=== PATIENT | male | born 1945 | race Caucasian/White ===

== ENCOUNTER 2025-02-17 10:34 | Outpatient (CLI) | payer MEDICARE, BC, SELFPAY ==
--- OUTSIDE RECORDS SUMMARY | 2025-01-08 08:30 | XMS_ITS | Encounter Summary ---
Author Organization [facility] er Address [address] [place] [address] Care Team Providers Care Tech Brazer Tester Name Role Phone Arabella Alamo APRN Primary Care Provider Encounter Details Date Type Department Care Team (Late st Contact Info) Description 01/08/2025 8:30 AM CDT Lab [place] [address] [facility] [address] [place] [address] Type 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) Social History Tobacco Use Types Packs/Day Years Used Date Smoking Tobacco: Every Day Cigarettes 1 64 Smokeless Tobacco: Never Alcohol Use Standard Drinks/Week Comments Not Currently 3 (1 standard drink = 0.6 oz pur e alcohol) B1300 Health Literacy Answer Date Recor ded How often do you need to hav e someone help you when you read instructions, pamphlets, or other written material from your doctor or pharmacy? Never 09/02/2024 [facility] Utilities Answer Date Recorded In the past 12 months has Simt[employer], gas, oil, or water [employer] threatened to shut off services in your home? No 09/02/2024 Humiliation, Afraid, Rape, and Kick questionnair e Answer Date Recorded Within the last year, have y ou been afraid of your partner or ex-partner? No 09/02/2024 Within the last year, have y ou been humiliated or emotionally abused in other ways by your partner or ex-partner? No Within the last year, have y ou been kicked, hit, slapped, or otherwise physically hurt by your partner or ex-partner? No 09/02/2024 Within the last year, have y ou been raped or forced to have any kind of sexual activity by your partner or ex-partner? No 09/02/2024 Social Connection and Isolat ion Panel [NHANES] Answer Date Recorded In a typical week, how many times do you talk on the phone with family, friends, or neighbors? More than three times a week 09/02/2024 How often do you get togethe r with friends or relatives? Twice a week 09/02/2024 How often do you attend chur or tenriism services? More than 4 times per year 09/02/2024 Do you belong to any clubs o r organizations such as islam groups, unions, fraternal or athletic groups, or school groups? Yes 09/02/2024 How often do you attend meet ings of the clubs or organizations you belong to? Never 09/02/2024 Are you , , di vorced, , never , or living with a partner? 09/02/2024 AUDIT-C Answer Date Recorded Q1: How often do you have a drink containing alc ohol? 2-3 times a week 09/02/2024 Q2: How many drinks containi ng alcohol do you have on a typical day when you are drinking? 1 or 2 09/02/2024 Q3: How often do you have si x or more drinks on one occasion? Never 09/02/2024 Overall Financial Resource Strain (CARDIA) Answe r Date Recorded How hard is it for you to pa y for the very basics like food, housing, medical care, and heating? Not hard at all 09/02/2024 PHQ-2 Answer Date Recorded PHQ-9 Total Score 1 09/02/2024 [facility] Occup[facility] ional [facility] - Occupational Stress Questionnaire Answer Date Recorded Do you feel stress - tense, restless, nervous, or anxious, or unable to sleep at night because your mind is troubled all the time - these days? Only a little 09/02/2024 Exercise Vital Sign Answer Date Recorde d On average, how many days pe r week do you engage in moderate to strenuous exercise (like a brisk walk)? 3 days 09/02/2024 On average, how many minutes do you engage in exercise at this level? 20 min 09/02/2024 Hunger Vital Sign Answer Date Recorded Within the past 12 months, y ou worried that your food would run out before you got the money to buy more. Never true Within the past 12 months, t he food you bought just didn't last and you didn't have money to get more. Sometimes true PRAPARE - Transportation Answer Date Re corded In the past 12 months, has l ack of transportation kept you from medical appointments or from getting medications? No 08/20 In the past 12 months, has l ack of transportation kept you from meetings, work, or from getting things needed for daily living? No 09/02/2024 Housing Stability Vital Sign Answer Valentino e Recorded In the last 12 months, was t here a time when you were not able to pay the mortgage or rent on time? No 10/19/2023 Number of Places Lived in the Last Year Not on f ile 10/19/2023 In the last 12 months, was t here a time when you did not have a steady place to sleep or slept in a halfway (including now)? No 10/19/2023 Housing Stability Vital Sign Answer Valentino e Recorded In the last 12 months, was t here a time when you were not able to pay the mortgage or rent on time? No 09/02/2024 Number of Times Moved in the Last Year Not on fi le 09/02/2024 At any time in the past 12 m [facility], were you homeless or living in a halfway (including now)? No 09/02/2024 Interpersonal Safety Questionnaire Answer Date Recorded How often does anyone, phuc echevarria family and friends, physically hurt you? Never 09/02/2024 How often does anyone, phuc echevarria family and friends, insult or talk down to you? Never 09/02/2024 How often does anyone, phuc echevarria family and friends, threaten you with harm? Never 09/02/2024 How often does anyone, phuc echevarria family and friends, threaten you with harm? Never 09/02/2024 Education Answer Date Recorded What is the highest level of school you have completed or the highest degree you have received? 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 documented in this encounter Plan of Treatment Upcoming Encounters Date Type Department Care Team (Late st Contact Info) Description 02/24/2025 8:30 AM CDT Appointment [facility] Ultrasound [address] [place] [id number] 02/24/2025 11:30 AM CDT Office Visit [facility] [address] [place] [id number] Shin Kong MD [address] [place] [id number] documented as of this encounter Procedures Procedure Name Priority Date/Time Associated Diagnosis Comments ESTIMATED GLOMERULAR FILTRATION RATE (EGFR) Routine 01/08/2025 8:39 AM CDT Type 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) HEMOGLOBIN A1C Routine 01/08/2025 8:39 AM CDT Type 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) LIPID PANEL Routine 01/08/2025 8:39 AM CDT Type 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) BASIC METABOLIC PANEL Routine 01/08/2025 8:39 AM CDT Type 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) documented in this encounter Results * (ABNORMAL) Estimated Glomerular Filtration Rate (eGFR) (01/08/2025 8:39 AM CDT) Pathologist [facility] Estimated Glomerular Filtration Rate (eGFR) 17(A) 01/08/2025 1:08 PM [facility] Comment: GFR calculated from serum creatinine value Chronic Kidney Disease less than 60 mL/min/1.73 m2 Kidney Failure less than 15 mL/min/1.73 m2 Note: effective 08/16/2022: 2020 CKD-EPI Equation used 01/08/2025 8:39 AM CDT 01/08/2025 8:39 AM CDT us Arabella Alamo APRN LAB BLOOD ORDERABLES F inal Result [facility] [address] [place] [address] * (ABNORMAL) Basic metabolic panel (01/08/2025 8:39 AM CDT) Sodium 136 135 - 145 mEq/L 01/08/2025 1:08 PM [facility] Potassium 3.8 3.5 - 5.1 mEq/L 01/08/2025 1:08 PM [facility] Chloride 109(H) 98 - 107 mEq/L 01/08/2025 1:08 PM [facility] CO2 17(L) 22 - 31 mmol/L 01/08/2025 1:08 PM [facility] Creatinine 3.51(H) 0.60 - 1.40 mg/dL 01/08/2025 1:08 PM [facility] BUN 65(H) 5 - 25 mg/dL 01/08/2025 1:08 PM [facility] Glucose 184(H) 70 - 100 mg/dL 01/08/2025 1:08 PM [facility] Calcium, Total,S 9.2 8.4 - 10.2 mg/dL 01/08/2025 1:08 PM [facility] Anion Gap 10 4 - 13 01/08/2025 1:08 PM [facility] Comment: The anion gap is calculated with the following formula: AGAP = Na ? (Cl + CO2). Blood (Blood, Venous) 01/08/2025 8:39 AM CDT 01/08/2025 12:35 PM CDT Arabella Alamo APRN LAB BLOOD ORDERABLES F inal Result Performing Organization Address [facility] de Phone Number [facility] [address] [place], [place] [address] * (ABNORMAL) Hemoglobin A1c (01/08/2025 8:39 AM CDT) Hemoglobin A1C 6.6(H) 4.0 - 5.6 % A1C 01/08/2025 1:01 PM CDT [facility] Comment: Reference Range 4.0-5.6% is for non- adults >=18 yrs <5.6% Non-Diabetic 5.7-6.4% Increased risk of Diabetes >=6.5% Indicative of Diabetes <7.0% ADA goal for glycemic control Methodology may not detect all hemoglobin variants which can affect A1c results. Method certified by National Glycohemoglobin Standardization Program. Blood (Blood, Venous) 01/08/2025 8:39 AM CDT 01/08/2025 12:35 PM CDT Arabella Alamo APRN LAB BLOOD ORDERABLES F inal Result Performing Organization Address [facility] de Phone Number [facility] [address] [place], [place] [id number] * (ABNORMAL) Lipid panel (01/08/2025 8:39 AM CDT) Cholesterol 84 0 - 199 mg/dL 01/08/2025 1:08 PM CDT [facility] Comment: Recommended by National Cholesterol Education Program (ATP III) -------- Cholesterol Ranges -------- <200 Desirable 200-239 Borderline high >=240 High Triglycerides 198(H) 0 - 149 mg/dL 01/08/2025 1:08 PM CDT [facility] Comment: -------- TRIG Ranges -------- <150 Normal 150-199 Borderline high 200-499 High >=500 Very high HDL 25(L) 40 - 250 mg/dL 01/08/2025 1:08 PM CDT [facility] Comment: -------- HDL Ranges -------- <40 Low 40-59 Normal >=60 Optimal LDL Calculated 19 0 - 99 mg/dL 01/08/2025 1:08 PM CDT [facility] Comment: -------- LDL Ranges -------- <100 Optimal 100-129 Near optimal/above optimal 130-159 Borderline high 160-189 High >=190 Very high Fasting? Yes 01/08/2025 8:40 AM CDT [facility] Blood (Blood, Venous) 01/08/2025 8:39 AM CDT 01/08/2025 12:35 PM CDT Arabella Alamo APRN LAB BLOOD ORDERABLES F inal Result [facility] [address] [place] [address] documented in this encounter Visit Diagnoses Diagnosis Type 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) documented in this encounter Care Teams Tech Brazer Tester Relationship Specialty Start Date End Date Arabella Alamo APRN [address] [place] [id number] PCP - General Family Medicine 09/07/23 documented as of this encounter
--- OUTSIDE RECORDS SUMMARY | 2025-01-08 15:05 | XMS_ITS | Encounter Summary ---
Author Organization [facility] Address [address] [place] [address] Care Team Providers Care Bioinformatics Computer Scientist Name Role Phone Elsewhere, Pcp Primary Care Provider Unavailabl e Reason for Visit * Reason Comments Abnormal Lab Sent here by [facility] after routine lab test showed GFR of 17 Encounter Details Date Type Department Care Team (Late st Contact Info) Description 01/08/2025 3:05 PM CDT - 01/08/2025 6:21 PM CDT Emergency [facility] [address] [place] [address] [place] [phone] Katie Ghotra APRN, C.N.P., D.N.P. 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 - 01/08/2025 6:17 PM CDT Make sure you keep your upcoming appointment with your primary care provider. Return to the emergency department with any worsening symptoms, or any other acute concerns. * Attachments The following attachments cannot be sent through Care Everywhere. * Acute Kidney Injury Adult (Ugandan) documented in this encounter Medications at Time of Discharge aspirin 81 mg chewable tablet Chew 81 mg. atorvastatin (LIPITOR) 40 mg tablet Take 40 mg by mouth. 02/12/2020 chlorthalidone (HYGROTON) 25 mg tablet Take 1 tablet by mouth daily. 10/19/2023 clotrimazole-bet amethasone (LOTRISONE) 1-0.05 % cream 01/14/2021 cyclobenzaprine (FLEXERIL) 10 mg tablet May take 1/2 to one pill up to three times per day IF needed for muscle pain/stiffness 02/25/2021 glipiZIDE (GLUCOTROL) 10 mg tablet TAKE 1 TABLET TWICE DAILY FOR DIABETES 10/07/2020 ibuprofen (ADVIL,MOTRIN) 200 mg tablet Take 2 tablets by mouth as needed. 04/24/2012 ketorolac (ACULAR) 0.5 % ophthalmic solution Administer 1 drop into the right eye 4 (four) times a day. Start 01/05/2024 and use as directed 5 mL 1 11/19/2023 losartan (COZAAR) 50 mg tablet Take 50 mg by mouth. 02/12/2020 metFORMIN (GLUCOPHAGE) 1,000 mg tablet 03/09/2021 metoprolol succinate (TOPROL-XL) 50 mg 24 hr tablet Take ONE a day for blood pressure. Do not crush or chew. 02/12/2020 prednisoLONE acetate (PRED FORTE) 1 % ophthalmic suspension Administer 1 drop into the right eye 4 (four) times a day. Start 01/05/2024 and use as directed 10 mL 1 11/19/2023 rosuvastatin (CRESTOR) 40 mg tablet Take 1 tablet by mouth daily. 04/10/2023 tobramycin (TOBREX) 0.3 % ophthalmic solution Administer 1 drop into the right eye 4 (four) times a day. Begin 01/05/2024. Follow schedule provided. 5 mL 1 12/31/2023 documented as of this encounter ED Notes * Katie Ghotra APRN, C.N.P., D.N.P. - 01/08/2025 4:16 PM CDT SUBJECTIVE CHIEF COMPLAINT/REASON FOR VISIT Abnormal Lab (Sent here by [facility] after routine lab test showed GFR of 17) HISTORY OF PRESENT ILLNESS This is an 79-year-old male, who was sent to the emergency department from an outside primary care clinic for evaluation of an abnormal kidney function panel. Comorbidities include COPD, hypertension, and type 2 DM amongst others. As per report, patient had a clinic appointment for a routine laboratory checkup. Patient reports that he was at home about 2 more his lawn, when he received a call from PCP to report to the emergency department due to an abnormal laboratory results. Patient reports that he has overall felt well. He has not had any trouble urinating, he has not hadany fever, chills, dysuria, or hematuria. He denies any changes to his bowel habits. He has not hadany back or flank pain. Patient reports that he drinks about 6 cups of water per day. REVIEW OF SYSTEMS All other systems reviewed and are negative. OBJECTIVE Initial Vitals Temperature 01/08/25 1513 36.8 ??C Pulse Rate 01/08/25 1515 61 Heart Rate -- Resp -- Blood Pressure 01/08/25 1500 113/62 SpO2 01/08/25 1515 98 % Pain Score 01/08/25 1513 0 - No pain PHYSICAL EXAMINATION Constitutional: Nursing note and vitals reviewed. No distress. HENT: Head: Normocephalic. Mouth/Throat: Oropharynx is clear and moist. Mucous membranes are moist. Eyes: Pupils are equal, round, and reactive to light. Neck: Neck supple. No neck adenopathy. Cardiovascular: Normal rate, regular rhythm, S1 normal and S2 normal. Pulses are palpable. Capillary refill: takes less than 3 secondsEdema: no edema noted Pulmonary/Chest: Effort normal and breath sounds normal. No respiratory distress. Abdominal: Soft. Bowel sounds are normal. exhibits no distension. There is no abdominal tenderness. Musculoskeletal: General: Normal range of motion. Cervical back: Normal range of motion and neck supple. Neurological: Alert and oriented to person, place, and time. He is not disoriented. Coordination normal. Skin: Skin is warm. No cyanosis. No pallor. Psychiatric: He has a normal mood and affect. ASSESSMENT/PLAN Some considerations are hypovolemia, electrolyte derangement, SHANI, and acute cystitis amongst many others. Patient is awake, alert, and oriented. He is able to speak in full sentences. He is afebrile and nontoxic-appearing. He is in no acute respiratory distress. His oxygen saturation is 98% on room air. On clinical examination his abdominal exam is benign, he presents with no evidence of acute abdomen.Patient will be administered aggressive IV fluids. CBC shows no evidence of acute anemia, or leukocytosis. BMP shows significant increasing creatinine, potential SHANI. You a shows moderate amount of blood, no leukocytes, or white blood cells. Patient will obtain a CT scan of abdomen and pelvis to evaluate for acute kidney injury and/or nephrolithiasis. CT scan shows no evidence of hydronephrosis, pyelonephritis, or obstructive source. Patient was informed of laboratory and imaging results. Patient had improvement in creatinine after fluid resuscitation. A conversation was had between myself, patient, and accept kin, Miguelina over the telephone. Patient was offered hospital admission for SHANI. I did explain to patient and family that as per patient record, last blood draw was on April of 2024. Unfortunately, we have no local bed capability. Risk versus benefit of discharging home wasdiscussed in detail. Patient says to me that he has has an upcoming appointment with his PCP on Sunday. Patient thinks it would be more beneficial to be discharged home, as he feels at baseline. Patient is his own medical decision maker, and is aware of risks potential of discharging home. Patientand neck. Can not would prefer to have patient discharged home with close follow-up. He is agreeable to returning to the emergency department if he has any worsening symptoms, or any other acute concerns. Patient is in agreement with the plan of care. Final Diagnoses: as of 01/08/251849 Failure Renal Acute (Acute Kidney Injury) Katie Ghotra APRN, C.N.P., D.N.P. 01/08/251853 documented in this encounter Plan of Treatment Not on file documented as of this encounter Procedures Procedure Name Priority Date/Time Associated Diagnosis Comments BASIC METABOLIC PANEL, S/P Timed 01/08/2025 5:[address] ABDOMEN PELVIS WITHOUT IV CONTRAST RAD - Semiurgent (Fast; most ED patients; some inpatients) 01/08/2025 4:09 PM CDT URINALYSIS WITH MICROSCOPIC IF INDICATED, U STAT 01/08/2025 3:46 PM CDT HC URINALYSIS AUTO W MICRO STAT 01/08/2025 3:46 PM CDT BACTERIAL CULTURE, AEROBIC + SUSC, URINE STAT 01/08/2025 3:41 PM CDT CBC WITH DIFFERENTIAL, B STAT 01/08/2025 3:36 PM CDT BASIC METABOLIC PANEL, S/P STAT 01/08/2025 3:36 PM CDT documented in this encounter Results * (ABNORMAL) Basic Metabolic Panel (01/08/2025 5:32 PM CDT) Potassium, P 4.2 3.6 - 5.2 mmol/L 01/08/2025 5:51 PM CDT CNFL Sodium, P 137 135 - 145 mmol/L 01/08/2025 5:51 PM CDT CNFL Chloride, P 108(H) 98 - 107 mmol/L 01/08/2025 5:51 PM CDT CNFL Bicarbonate, P 16(L) 22 - 29 mmol/L 01/08/2025 5:51 PM CDT CNFL Anion Gap, P 13 7 - 15 01/08/2025 5:51 PM CDT CNFL BUN (Blood Urea Nitrogen), P 58(H) 8 - 24 mg/dL 01/08/2025 5:51 PM CDT CNFL Creatinine 2.95(H) 0.74 - 1.35 mg/dL 01/08/2025 5:51 PM CDT CNFL Estimated GFR (eGFR) 21(L) >=60 mL/min/BSA 01/08/2025 5:51 PM CDT CNFL Comment: Estimated GFR calculated using the 2020 CKD_EPI creatinine equation. Calcium, Total, P 7.9(L) 8.8 - 10.2 mg/dL 01/08/2025 5:51 PM CDT CNFL Glucose, P 91 70 - 140 mg/dL 01/08/2025 5:51 PM CDT CNFL Blood (Blood, Venous) 01/08/2025 5:32 PM CDT 01/08/2025 5:34 PM CDT us Katie Ghotra APRN C.N.P., D.N.P. LAB BLOOD ADD-ON Final Result Performing Organization Address City/State/[facility] Co de Phone Number [facility] [address] [place] [address], [facility] CNFL [facility] in [address] [address] * CT Abdomen Pelvis without IV Contrast (01/08/2025 4:09 PM CDT) Anatomical Region Laterality Modality Abdomen, Pelvis, Abdominal R ST LOS, Abdominal ARZ LOS, Abdominal FLA LOS N/A Computed Tomography 01/08/2025 4:09 PM CDT Impressions 01/08/2025 4:16 PM CDT 1. Multiple nonobstructing stones in the right renal collecting system, the largest measures 9 mm. No hydronephrosis. 2. Marked prostamegaly. Narrative 01/08/2025 4:16 PM CDT EXAM: CT ABDOMEN PELVIS WITHOUT IV CONTRAST COMPARISON: None FINDINGS: 9 mm stone in the right renal collecting system (series 5, image 58). Additional tiny nonobstructing stones in the lower pole of the right kidney. No other urinary calculi identified. No hydronephrosis. Bilateral renal cysts. Marked prostamegaly. A few scattered tiny hypoattenuating lesions in the liver are too small to characterize but likely represent cysts and/or hemangiomas. The solid organs are otherwise unremarkable on this noncontrast examination. Normal caliber small bowel and colon. Advanced scattered calcified atherosclerotic disease. Small fat-containing left inguinal hernia. Slight thoracolumbar curvature with advanced degenerative changes of the spine. Degenerative changes both SI joints and hips. The visualized lower lungs are clear. Procedure Note Benedicto Clifton M.D. - 01/08/2025 EXAM: CT ABDOMEN PELVIS WITHOUT IV CONTRAST COMPARISON: None FINDINGS: 9 mm stone in the right renal collecting system (series 5, image 58).Additional tiny nonobstructing stones in the lower pole of the rightkidney. No other urinary calculi identified. No hydronephrosis. Bilateralrenal cysts. Marked prostamegaly. A few scattered tiny hypoattenuating lesions in the liver are too small tocharacterize but likely represent cysts and/or hemangiomas. The solidorgans are otherwise unremarkable on this noncontrast examination. Normalcaliber small bowel and colon. Advanced scattered calcified atherosclerotic disease. Small fat-containing leftinguinal hernia. Slight thoracolumbar curvature with advanced degenerativechanges of the spine. Degenerative changes both SI joints and hips. Thevisualized lower lungs are clear. IMPRESSION: 1. Multiple nonobstructing stones in the right renal collecting system,the largest measures 9 mm. No hydronephrosis. 2. Marked prostamegaly. us Katie Ghotra APRN, C.N.P., D.N.P. IMG CT PRO CEDURES Final Result * (ABNORMAL) Microscopic Manual (01/08/2025 3:46 PM CDT) White Blood Cells Occ-3 /hpf 01/08/2025 4:22 PM CDT CNFL Comment: ----REFERENCE VALUE---- Males: 0-3 Females: 0-10 Unknown: 0-10 Red Blood Cells 3-10(A) 0 - 2 /hpf 4:22 PM CDT CNFL Dysmorphic Red Blood Cells <=25 <=25 % 01/08/2025 4:22 PM CDT CNFL Crystals Amorphous( A) None Seen /lpf 01/08/2025 4:22 PM CDT CNFL Squamous Cells Occ-3 /hpf 01/08/2025 4:22 PM CDT CNFL Renal Cells Occ-3(A) None Seen /hpf 01/08/2025 4:22 PM CDT CNFL Bacteria None Seen None Seen 01/08/2025 4:22 PM CDT CNFL Urine 01/08/2025 3:46 PM CDT 01/08/2025 3:46 PM CDT us Katie Ghotra APRN, C.N.P., D.N.P. LAB URINE ORDERABLES Final Result [facility] [address] [place] [address], [facility] CNFL [place] [address] * (ABNORMAL) Urinalysis with Microscopic if Indicated: Urine, Midstream (01/08/2025 3:46 PM CDT) Source Urine, Urine, Midstream 01/08/2025 3:46 PM CDT CNFL Clarity Clear Clear 01/08/2025 3:51 PM CDT CNFL Color Yellow 01/08/2025 3:51 PM CDT CNFL Comment: ----REFERENCE VALUE---- Colorless Yellow Laura Blood Moderate(A) Negative 01/08/2025 3:51 PM CDT CNFL Nitrite Negative Negative 01/08/2025 3:51 PM CDT CNFL Leukocyte Esterase Negative Negative 01/08/2025 3:51 PM CDT CNFL Protein >=300(A) mg/dL 01/08/2025 3:51 PM CDT CNFL Comment: ----REFERENCE VALUE---- Negative Trace Glucose Negative Negative mg/dL 01/08/2025 3:51 PM CDT CNFL Ketones, QI(U) Negative Negative mg/dL 01/08/2025 3:51 PM CDT CNFL Bilirubin Negative Negative 01/08/2025 3:51 PM CDT CNFL pH 5.5 5.0 - 8.0 01/08/2025 3:51 PM CDT CNFL Specific Dixie 1.020 1.001 - 1.035 01/08/2025 3:51 PM CDT CNFL Urobilinogen 0.2 0.2 - 1.0 mg/dL 01/08/2025 3:51 PM CDT CNFL Urine (Urine, Midstream) 01/08/2025 3:46 PM CDT 01/08/2025 3:46 PM CDT Katie Ghotra APRN, C.N.P., D.N.P. LAB URINE ORDERABLES Final Result Performing Organization Address [facility] Co de Phone Number [facility] [address] [place] [address], [facility] [place] [address] * Bacterial Culture, Aerobic + Susceptibility, Urine (01/08/2025 3:41 PM CDT) Urine Culture No growth after 1 day of incubation. 01/09/2025 3:21 PM CDT ECLR Urine (Urine, Midstream) 01/08/2025 3:41 PM CDT 01/08/2025 8:31 PM CDT Comment:Specimen Source Site : Urine Katie Ghotra APRN, C.N.P ., D.N.P. LAB MICROBIOLOGY - GENERAL ORDERABLES Final Result [facility] [address] [place] [address], [place] ECLR [facility] [place] [address] [place] [address] * (ABNORMAL) Basic Metabolic Panel (01/08/2025 3:36 PM CDT) Potassium, P 4.3 3.6 - 5.2 mmol/L 01/08/2025 3:57 PM CDT CNFL Sodium, P 139 135 - 145 mmol/L 01/08/2025 3:57 PM CDT CNFL Chloride, P 105 98 - 107 mmol/L 01/08/2025 3:57 PM CDT CNFL Bicarbonate, P 18(L) 22 - 29 mmol/L 01/08/2025 3:56 PM CDT CNFL Anion Gap, P 16(H) 7 - 15 01/08/2025 3:57 PM CDT CNFL BUN (Blood Urea Nitrogen), P 63(H) 8 - 24 mg/dL 01/08/2025 3:56 PM CDT CNFL Creatinine 3.32(H) 0.74 - 1.35 mg/dL 01/08/2025 3:56 PM CDT CNFL Estimated GFR (eGFR) 18(L) >=60 mL/min/BSA 01/08/2025 3:56 PM CDT CNFL Comment: Estimated GFR calculated using the 2020 CKD_EPI creatinine equation. Calcium, Total, P 9.1 8.8 - 10.2 mg/dL 01/08/2025 3:56 PM CDT CNFL Glucose, P 130 70 - 140 mg/dL 01/08/2025 3:56 PM CDT CNFL Blood (Blood, Venous) 01/08/2025 3:36 PM CDT 01/08/2025 3:38 PM CDT Katie Ghotra APRN, C.N.P., D.N.P. LAB BLOOD ADD-ON Final Result [facility] [address] [address], [facility] [address] [address] * (ABNORMAL) CBC with Differential, Blood (01/08/2025 3:36 PM CDT) Hemoglobin 12.8(L) 13.2 - 16.6 g/dL 01/08/2025 3:41 PM CDT CNFL Hematocrit 37.3(L) 38.3 - 48.6 % 01/08/2025 3:41 PM CDT CNFL Erythrocytes 4.06(L) 4.35 - 5.65 x10(12)/L 01/08/2025 3:41 PM CDT CNFL MCV 91.9 78.2 - 97.9 fL 01/08/2025 3:41 PM CDT CNFL RBC Distrib Width 12.9 11.8 - 14.5 % 01/08/2025 3:41 PM CDT CNFL Platelet Count 196 135 - 317 x10(9)/L 01/08/2025 3:41 PM CDT CNFL Leukocytes 9.1 3.4 - 9.6 x10(9)/L 01/08/2025 3:41 PM CDT CNFL Neutrophils 5.90 1.56 - 6.45 x10(9)/L 01/08/2025 3:41 PM CDT CNFL Lymphocytes 1.91 0.95 - 3.07 x10(9)/L 01/08/2025 3:41 PM CDT CNFL Monocytes 1.05(H) 0.26 - 0.81 x10(9)/L 01/08/2025 3:41 PM CDT CNFL Eosinophils 0.23 0.03 - 0.48 x10(9)/L 01/08/2025 3:41 PM CDT CNFL Basophils 0.04 0.01 - 0.08 x10(9)/L 01/08/2025 3:41 PM CDT CNFL Blood (Blood, Venous) 01/08/2025 3:36 PM CDT 01/08/2025 3:38 PM CDT us Katie Ghotra APRN, C.N.P., Alicia.N.PDora LAB BLOOD ADD-ON Final Result [facility] [address] [place] [id number], [facility] CN[facility] in [address] [address] documented in this encounter Visit Diagnoses Diagnosis Failure Renal Acute (Acute Kidney Injury)- Primary documented in this encounter Administered Medications Inactive Administered Medications - up to 3 most recent administrations Medication Order MAR Action Action Date Dose Rate Site NaCl 0.9 % bolus 1,000 mL 1,000 mL, intravenous, at 1,000 mL/hr, Administer over 1 Hours, Once, On Danielle 01/08/25 at 1525, For 1 dose New Bag 01/08/2025 3:41 PM CDT 1,000 mL 100 0 mL/hr NaCl 0.9 % bolus 1,000 mL 1,000 mL, intravenous, at 1,000 mL/hr, Administer over 1 Hours, Once, On Danielle 01/08/25 at 1628, For 1 dose New Bag 01/08/2025 4:44 PM CDT 1,000 mL 100 0 mL/hr sodium chloride 0.9 % injection 2-10 mL 2-10 mL, intravenous, As needed, line care, Starting on Danielle 01/08/25 at 1524 documented in this encounter Active and Recently Administered Medications Times are shown in CDT. Scheduled Medication Order 01/06/2025 01/07/2025 01/08/2025 NaCl 0.9 % bolus 1,000 mL (COMPLETED) 1,000 mL, intravenous, at 1,000 mL/hr, Administer over 1 Hours, Once, On Danielle 01/08/25 at 1525, For 1 dose 1541 (New Bag - Prov ider: Maryam Eaton, R.N.)1646 (Stopped - Provider: Maryam Eaton, R.N.) NaCl 0.9 % bolus 1,000 mL (COMPLETED) 1,000 mL, intravenous, at 1,000 mL/hr, Administer over 1 Hours, Once, On Danielle 01/08/25 at 1628, For 1 dose 1644 (New Bag - Prov ider: Maryam Eaton, R.N.)1715 (Stopped - Provider: Maryam Eaton R.N.) PRN Medication Order 01/06/2025 01/07/2025 01/08/2025 sodium chloride 0.9 % injection 2-10 mL(Linked Group 1) 2-10 mL, intravenous, As needed, line care, Starting on Danielle 01/08/25 at 1524 Linked Groups Order Group 1: Place peripheral IV: No upper extremity site restrictions (COMPLETED) Upper extremity site restriction: No upper extremity site restrictions, Quantity of PIVs requested: One, STAT, Once, On Danielle 01/08/25 at 1525, For 1 occurrence And sodium chloride 0.9 % injection 2-10 mLJump to med 2-10 mL, intravenous, As needed, line care, Starting on Danielle 01/08/25 at 1524 documented in this encounter Additional Health Concerns Assessment Noted Time PHQ-9 Depression Total Score: 1 12/06/19 11 8:40 AM CDT documented as of this encounter Care Teams Bioinformatics Computer Scientist Relationship Specialty Start Date End Date Elsewhere, Pcp PCP - General Family Medicine 05/20/21 documented as of this encounter
--- OUTSIDE RECORDS SUMMARY | 2025-01-13 15:40 | XMS_ITS | Encounter Summary ---
Author Organization [facility] er Address [address] [place] [address] Care Team Providers Care Relationship Mgr Name Role Phone Arabella Alamo APRN Primary Care Provider Reason for Visit * Reason Comments Annual Exam Encounter Details Date Type Department Care Team (Late st Contact Info) Description 01/13/2025 3:40 PM CDT Office Visit [facility] [address] [facility] [address] [place] [address] Arabella Alamo [employer] [address] [place] [id number] Type 2 diabetes mellitus without complication, without long-term current use of insulin (HCC) (Primary Dx); Arteriosclerosis of coronary artery; Thoracic aortic aneurysm without rupture; Hyperlipidemia LDL goal <70; Essential hypertension; 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 Never 09/02/2024 [facility] Utilities Answer Date Recorded In the past 12 months has e electric, gas, oil, or water company threatened to shut off services in your [...] How often do you attend chur or yazdanism services? More than 4 times per year 09/02/2024 Do you belong to any clubs o r organizations such as yazidi groups, unions, fraternal or athletic groups, or [...] Date Recorded PHQ-9 Total Score 1 09/02/2024 [facility] of Occupat ional Health - Occupational Stress [...] place to sleep or slept in a residential (including now)? No 10/19/2023 Housing Stability Vital Sign Answer Valentino e Recorded In the last 12 months, was t here a time when you were not able to pay the mortgage or rent on time? No 09/02/2024 Number of Times Moved in the Last Year Not on fi le 09/02/2024 At any time in the past 12 m [facility], were you homeless or living in a residential (including now)? 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 on file Not on file documented as of this encounter Last Filed Vital Signs Vital Sign Reading Time Taken Comments Blood Pressure 107/56 01/13/2025 3:31 PM CDT Pulse 56 01/13/2025 3:31 PM CDT Temperature 35.5 C (95.9 F) 01/13/2025 3:31 PM CDT Respiratory Rate 20 01/13/2025 3:31 PM CDT Oxygen Saturation 97% 01/13/2025 3:31 PM CDT Inhaled Oxygen Concentration - - Weight 72.5 kg (159 lb 14.4 oz) 01/13/2025 3:31 PM CDT Height 167.6 cm (5' 6) 01/13/2025 3:31 PM CDT Body Mass Index 25.81 01/13/2025 3:31 PM CDT documented in this encounter Patient Instructions * Patient Instructions* Arabella Alamo APRN - 01/13/2025 3:40 PM CDT Stop taking Amlodipine (Norvasc) 5 mg and start taking Amlodipine (Norvasc) 2.5 mg nightly: Follow up in 4 weeks Fasting lab work to be completed next week documented in this encounter Progress Notes * Arabella Alamo APRN - 01/13/2025 3:40 PM CDT Subjective Patient ID: Leo Mitchell is a 79 y.o. male. Chief Complaint Patient presents with Annual Exam Leo presents today for his annual medicare physical and medication renewal. Leo does not have any concerns or questions today. Leo states that he eats cottage cheese, watermelon, banana and pears for breakfast with coffee.Eats yogurt and a candy bar for lunch and then a regular dinner such as a sandwich. He drinks about4 bottles of water a day. He does not drink any alcohol anymore, smokes about 1 pack a cigarettes aday, no marijuana and no illegal drug use. He just bought a treadmill about 6 weeks ago and does about 5-10 minutes of walking a day on this. Leo did state that he does feel tired often, has a chronic runny nose and feels SOB with bending over which has been worked up before. Leo does not want to see a instructional materials director at this time asthe SOB is only with bending over. No SOB with walking, sitting or sleeping. Leo is also taking his blood sugars every morning and states it was 159 yesterday but two timeslast week it was 235 and 245. He did not bring blood sugars with him today. Went over medications with patient and wrote out a list of medications, doses and times and gave this to Leo. A provider reviewed the following portions of the patient's chart in this encounter and updated as appropriate: Tobacco Allergies Meds Problems Med Hx Surg Hx Fam Hx Review of Systems Constitutional: Positive for fatigue. Negative for activity change, appetite change, fever and unexpected weight change. HENT: Positive for rhinorrhea (chronic). Negative for congestion, ear pain, sore throat and troubleswallowing. Eyes: Negative. Negative for discharge, itching and visual disturbance (reading glasses, cant see out of left eye). Respiratory: Positive for shortness of breath (just with bending over). Negative for cough, chest tightness and wheezing. Cardiovascular: Negative for chest pain, palpitations and leg swelling. Gastrointestinal: Negative. Negative for abdominal distention, abdominal pain, constipation, diarrhea, nausea and vomiting. Endocrine: Negative. Genitourinary: Negative. Negative for dysuria, frequency and urgency. Musculoskeletal: Negative. Negative for arthralgias, back pain, joint swelling and neck stiffness. Skin: Negative. Negative for color change, rash and wound. Allergic/Immunologic: Negative. Neurological: Negative. Negative for dizziness (some times get dizzy if he gets up to fast), weakness, light-headedness and headaches. Hematological: Negative. Psychiatric/Behavioral: Negative. Negative for agitation, decreased concentration, dysphoric mood, self-injury, sleep disturbance and suicidal ideas. The patient is not nervous/anxious. Objective Physical Exam Constitutional: Appearance: Normal appearance. He is well-developed and well-groomed. HENT: Head: Normocephalic. Right Ear: Hearing, tympanic membrane, ear canal and external ear normal. Left Ear: Hearing, tympanic membrane, ear canal and external ear normal. Nose: Rhinorrhea present. Mouth/Throat: Lips: Lillian. Mouth: Mucous membranes are moist. Cardiovascular: Rate and Rhythm: Normal rate and regular rhythm. Pulses: Normal pulses. Heart sounds: Normal heart sounds. Pulmonary: Effort: Pulmonary effort is normal. Breath sounds: Normal breath sounds and air entry. Abdominal: General: Bowel sounds are normal. Palpations: Abdomen is soft. Feet: Right foot: Skin integrity: Skin integrity normal. Toenail Condition: Right toenails are abnormally thick. Left foot: Skin integrity: Skin integrity normal. Toenail Condition: Left toenails are abnormally thick. Neurological: General: No focal deficit present. Mental Status: He is alert and oriented to person, place, and time. Psychiatric: Mood and Affect: Mood normal. Behavior: Behavior normal. Behavior is cooperative. Thought Content: Thought content normal. Judgment: Judgment normal. Assessment/Plan Problem List Items Addressed This Visit Arteriosclerosis of coronary artery Coronary artery disease is improving with treatment. Dietary sodium restriction. Regular aerobic exercise. Stop smoking. Continue current medications. Cardiac status will be reassessed in 1 year. Continue Rosuvastatin (Crestor) 40 mg daily Relevant Medications amLODIPine (Norvasc) 2.5 MG tablet rosuvastatin (CRESTOR) 40 MG tablet metoprolol tartrate (Lopressor) 50 MG tablet losartan (COZAAR) 100 MG tablet chlorthalidone (HYGROTON) 25 MG tablet Hyperlipidemia Coronary artery disease is improving with treatment. Dietary sodium restriction. Regular aerobic exercise. Stop smoking. Continue current medications. Cardiac status will be reassessed in 1 year. 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 Reminded to bring in blood sugar diary at next visit. Dietary recommendations for ADA diet. Regular aerobic exercise. Discussed ways to avoid symptomatic hypoglycemia. Discussed sick day management. Discussed foot care. Reminded to get yearly retinal exam. Diabetes will be reassessed in 6 months. Continue Metformin (Fortamet) 1000 mg 2 x day Relevant Medications rosuvastatin (CRESTOR) 40 MG tablet metFORMIN (FORTAMET) 1000 MG 24 hr tablet losartan (COZAAR) 100 MG tablet glipiZIDE (GLUCOTROL) 10 MG tablet Essential hypertension Hypertension is improving with treatment. Dietary sodium restriction. Regular aerobic exercise. Stop smoking. Medication changes per orders. Blood pressure will be reassessed in 4 weeks. Stop taking Amlodipine (Norvasc) 5 mg and start taking Amlodipine (Norvasc) 2.5 mg nightly: Follow up in 4 weeks Continue Metoprolol Tartrate (Lopressor) 50 mg daily Continue Losartan (Cozaar) 100 mg daily Continue Chlorthalidone (Hygroton) 25 mg daily Relevant Medications amLODIPine (Norvasc) 2.5 MG tablet metoprolol tartrate (Lopressor) 50 MG tablet losartan (COZAAR) 100 MG tablet chlorthalidone (HYGROTON) 25 MG tablet Allergies Continue Loratadine (Claritin) 10 mg daily Relevant Medications loratadine (Claritin) 10 MG tablet Leg pain, bilateral Continue Duloxetine (Cymbalta) 30 mg nightly Relevant Medications DULoxetine (Cymbalta) [address] capsule Other Visit Diagnoses Thoracic aortic aneurysm without rupture Relevant Medications amLODIPine (Norvasc) 2.5 MG tablet rosuvastatin (CRESTOR) 40 MG tablet metoprolol tartrate (Lopressor) 50 MG tablet losartan (COZAAR) 100 MG tablet chlorthalidone (HYGROTON) 25 MG tablet Hyperlipidemia LDL goal <70 Relevant Medications rosuvastatin (CRESTOR) 40 MG tablet metFORMIN (FORTAMET) 1000 MG 24 hr tablet documented in this encounter Miscellaneous Notes * Assessment & Plan Note - Arabella Alamo APRN - 01/14/2025 12:13 PM CDT Associated Problem(s): Leg pain, bilateral Continue Duloxetine (Cymbalta) 30 mg nightly * Assessment & Plan Note - Arabella Alamo APRN - 01/14/2025 12:11 PM CDT Associated Problem(s): Diabetes mellitus (HCC) Diabetes is improving with treatment. Reminded to bring in blood sugar diary at next visit. Dietary recommendations for ADA diet. Regular aerobic exercise. Discussed ways to avoid symptomatic hypoglycemia. Discussed sick day management. Discussed foot care. Reminded to get yearly retinal exam. Diabetes will be reassessed in 6 months. Continue Metformin (Fortamet) 1000 mg 2 x day * Assessment & Plan Note - Arabella Alamo APRN - 01/14/2025 12:10 PM CDT Associated Problem(s): Essential hypertension Hypertension is improving with treatment. Dietary sodium restriction. Regular aerobic exercise. Stop smoking. Medication changes per orders. Blood pressure will be reassessed in 4 weeks. Stop taking Amlodipine (Norvasc) 5 mg and start taking Amlodipine (Norvasc) 2.5 mg nightly: Follow up in 4 weeks Continue Metoprolol Tartrate (Lopressor) 50 mg daily Continue Losartan (Cozaar) 100 mg daily Continue Chlorthalidone (Hygroton) 25 mg daily * Assessment & Plan Note - Arabella Alamo APRN - 01/14/2025 12:08 PM CDT Associated Problem(s): Hyperlipidemia Coronary artery disease is improving with treatment. Dietary sodium restriction. Regular aerobic exercise. Stop smoking. Continue current medications. Cardiac status will be reassessed in 1 year. Continue Rosuvastatin (Crestor) 40 mg daily * Assessment & Plan Note - Arabella Alamo APRN - 01/14/2025 12:08 PM CDT Associated Problem(s): Arteriosclerosis of coronary artery Coronary artery disease is improving with treatment. Dietary sodium restriction. Regular aerobic exercise. Stop smoking. Continue current medications. Cardiac status will be reassessed in 1 year. Continue Rosuvastatin (Crestor) 40 mg daily * Assessment & Plan Note - Arabella Alamo APRN - 01/14/2025 12:07 PM CDT Associated Problem(s): Allergies Continue Loratadine (Claritin) 10 mg daily documented in this encounter Plan of Treatment Upcoming Encounters Date Type Department Care Team (Late st Contact Info) Description 02/24/2025 8:30 AM CDT Appointment [facility] Ultrasound [address] [place] [address] 02/24/2025 11:30 AM CDT Office Visit [facility] [address] [place] [address] Shin Kong MD [address] [facility] [place] [phone] documented as of this encounter Visit Diagnoses Diagnosis Type 2 diabetes mellitus without complication, without long-term current use of insulin (HCC)- Primary Arteriosclerosis of coronary artery Thoracic aortic aneurysm without rupture Hyperlipidemia, unspecified hyperlipidemia type Essential hypertension Unspecified essential hypertension 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
--- OUTSIDE RECORDS SUMMARY | 2025-01-20 08:45 | XMS_ITS | Encounter Summary ---
Author Organization [facility] er Address [address] [place] [address] Care Team Providers Care Grid Operator Name Role Phone Arabella Alamo APRN Primary Care Provider Encounter Details Date Type Department Care Team (Late st Contact Info) Description 01/20/2025 8:45 AM CDT Lab [place] [address] [place] [address] Tobacco dependence (Primary Dx); Type 2 diabetes mellitus without complication, without long-term current use of insulin (HCC); Chronic wound of head; Essential hypertension Social History Tobacco Use Types Packs/Day Years [...] from your doctor or pharmacy? Never 09/02/2024 [facility] Utilities Answer Date Recorded In the [...] How often do you attend chur or mandaen services? 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 Not on file Not on file documented as of this encounter Plan of Treatment Upcoming Encounters Date Type Department Care Team (Late st Contact Info) Description 02/24/2025 8:30 AM CDT Appointment [facility] [address] [place] [address] 02/24/2025 11:30 AM CDT Office Visit [facility] [address] [place] [address] Shin Kong MD [address] [place] [phone] documented as of this encounter Procedures Procedure Name Priority Date/Time Associated Diagnosis Comments ESTIMATED GLOMERULAR FILTRATION RATE (EGFR) Routine 01/20/2025 8:58 AM CDT Type 2 diabetes mellitus without complication, without long-term current use of insulin (HCC) Tobacco dependence Chronic wound of head Essential hypertension CBC BRANCH OFFICE W/DIFF Routine 01/20/2025 8:58 AM CDT Type 2 diabetes mellitus without complication, without long-term current use of insulin (HCC) Tobacco dependence Chronic wound of head Essential hypertension BASIC METABOLIC PANEL Routine 01/20/2025 8:58 AM CDT Type 2 diabetes mellitus without complication, without long-term current use of insulin (HCC) Tobacco dependence Chronic wound of head Essential hypertension documented in this encounter Results * (ABNORMAL) Estimated Glomerular Filtration Rate (eGFR) (01/20/2025 8:58 AM CDT) Estimated Glomerular Filtration Rate (eGFR) 8(A) 01/20/2025 9:48 AM CDT [facility] Comment: GFR calculated from serum creatinine value Chronic Kidney Disease less than 60 mL/min/1.73 m2 Kidney Failure less than 15 mL/min/1.73 m2 Note: effective 08/16/2022: 2020 CKD-EPI Equation used 01/20/2025 8:58 AM CDT 01/20/2025 8:58 AM CDT Arabella Alamo APRN LAB BLOOD ORDERABLES F inal Result [facility] [address] [place] [address] * (ABNORMAL) CBC Branch Off w/Diff (01/20/2025 8:58 AM CDT) WBC 11.1(H) 3.5 - 10.5 K/uL 01/20/2025 9:48 AM CDT [facility] RBC 4.12(L) 4.30 - 5.70 M/uL 01/20/2025 9:48 AM CDT [facility] Hemoglobin 12.8(L) 13.5 - 17.5 g/dL 01/20/2025 9:48 AM CDT [facility] Hematocrit 38.1 38.0 - 50.0 % 01/20/2025 9:48 AM CDT [facility] Platelets 234 150 - 450 K/uL 01/20/2025 9:48 AM CDT [facility] MCV 92.5 81.2 - 95.1 fL 01/20/2025 9:48 AM CDT [facility] MCH 31.1 26.0 - 32.0 pg 01/20/2025 9:48 AM CDT [facility] MCHC 33.6 32.0 - 36.0 g/dL 01/20/2025 9:48 AM CDT [facility] RDW 13.6 11.8 - 15.6 % 01/20/2025 9:48 AM CDT [facility] Lymphocytes % 24.8 % 01/20/2025 9:48 AM CDT [facility] Mid-size Cells 11.0 % 01/20/2025 9:48 AM CDT [facility] Granulocytes/Seun trophils 64.2 % 01/20/2025 9:48 AM CDT [facility] [place] Lymphocytes Absolute 2.8 0.9 - 2.9 K/uL 01/20/2025 9:48 AM CDT [facility] [place] MIDS Absolute 1.2 0.4 - 1.5 K/uL 01/20/2025 9:48 AM CDT [facility] [place] Granulocytes/Seun trophils Absolute 7.1(H) 1.7 - 7.0 K/uL 01/20/2025 9:48 AM CDT [facility] [place] Blood (Blood, Venous) 01/20/2025 8:58 AM CDT 01/20/2025 8:58 AM CDT us Arabella Alamo APRN LAB BLOOD ORDERABLES F inal Result [facility] [place] [address] [place] [address] * (ABNORMAL) Basic metabolic panel (01/20/2025 8:58 AM CDT) Sodium 139 135 - 145 mmol/L 01/20/2025 9:48 AM CDT [facility] [place] Potassium 4.4 3.5 - 5.1 mmol/L 01/20/2025 9:48 AM CDT [facility] [place] Chloride 110(H) 98 - 107 mmol/L 01/20/2025 9:48 AM CDT [facility] [place] CO2 19(L) 22 - 31 mmol/L 01/20/2025 9:48 AM CDT [facility] [place] Creatinine 6.3(HH) 0.6 - 1.4 mg/dL 01/20/2025 9:48 AM CDT [facility] [place] BUN 60(H) 5 - 25 mg/dL 01/20/2025 9:48 AM CDT [facility] [place] Glucose 143(H) 70 - 100 mg/dL 01/20/2025 9:48 AM CDT [facility] [place] Calcium, Total,S 10.4(H) 8.4 - 10.2 mg/dL 01/20/2025 9:48 AM CDT [facility] Anion Gap 10 4 - 13 01/20/2025 9:48 AM CDT [facility] Comment: The anion gap is calculated with the following formula: AGAP = Na ? (Cl + CO2). Fasting? Yes 01/20/2025 8:58 AM CDT [facility] Blood (Blood, Venous) 01/20/2025 8:58 AM CDT 01/20/2025 8:58 AM CDT Arabella Alamo APRN LAB BLOOD ORDERABLES F inal Result [facility] [address] [place] [address] documented in this encounter Visit Diagnoses Diagnosis Tobacco dependence- Primary Tobacco use disorder Type 2 diabetes mellitus without complication, without long-term current use of insulin (HCC) Chronic wound of head Essential hypertension Unspecified essential hypertension documented in this encounter Care Teams Grid Operator Relationship Specialty Start Date End Date Arabella Alamo APRN [address] [place] [phone] PCP - General Family Medicine 09/07/23 documented as of this encounter
--- OUTSIDE RECORDS SUMMARY | 2025-01-20 14:28 | XMS_ITS | Encounter Summary ---
Author Organization [facility] er Address [address] [place] [id number] Care Team Providers Care Clerical Warehouse Worker Name Role Phone Arabella Alamo APRN Primary Care Provider Reason for Visit * Reason Comments Abnormal Lab Encounter Details Date Type Department Care Team (Late st Contact Info) Description 01/20/2025 2:28 PM CDT - 01/20/2025 5:55 PM CDT Emergency [facility] Emergency Room [address] [place] [id number] Renal failure, unspecified chronicity (Primary Dx); Hypertension, unspecified type; Enlarged prostate Discharge Disposition: Home or Self Care Social [...] from your doctor or pharmacy? Never 09/02/2024 [facility] Utilities Answer Date Recorded In the [...] How often do you attend chur or nondenominational services? More than 4 times per year 09/02/2024 Do you belong to any clubs o r organizations such as taoism groups, unions, fraternal or athletic groups, or [...] Date Recorded PHQ-9 Total Score 1 09/02/2024 [facility] [place] of Occupat ional Health - Occupational Stress [...] place to sleep or slept in a jail (including now)? No 10/19/2023 Housing Stability Vital Sign Answer Valentino e Recorded In the last 12 months, was t here a time when you were not able to pay the mortgage or rent on time? No 09/02/2024 Number of Times Moved in the Last Year Not on fi le 09/02/2024 At any time in the past 12 m [facility], were you homeless or living in a jail (including now)? No 09/02/2024 Interpersonal Safety Questionnaire Answer Date Recorded How often does anyone, phuc echevarria family and friends, physically hurt you? Never 09/02/2024 How often does anyone, phuc echevarria family and friends, insult or talk down to you? Never 09/02/2024 How often does anyone, phuc echevarria family and friends, threaten you with harm? Never 09/02/2024 How often does anyone, inclu ding family and friends, threaten you with harm? 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 Not on file Not on file documented as of this encounter Last Filed Vital Signs Vital Sign Reading Time Taken Comments Blood Pressure 140/66 01/20/2025 5:06 PM CDT Pulse 59 01/20/2025 5:06 PM CDT Temperature 35.7 C (96.3 F) 01/20/2025 2:42 PM CDT Respiratory Rate 18 01/20/2025 5:06 PM CDT Oxygen Saturation 96% 01/20/2025 5:06 PM CDT Inhaled Oxygen Concentration - - Weight 71.2 kg (156 lb 15.5 oz) 01/20/2025 2:42 PM CDT Height 167.7 cm (5' 6.02) 01/20/2025 2:42 PM CD T Body Mass Index 25.32 01/20/2025 2:42 PM CDT documented in this encounter Discharge Instructions * Discharge Instructions* Blanca Arrington PA-C - 01/20/2025 5:42 PM CDT As we discussed, start the following changes: STOP Losartan (Cozaar) 100mg STOP Chlorthalidone (Hygroton) 25mg INCREASE Amlodipine (Norvasc) 2.5mg to 10mg. I sent a new prescription for 10mg tabs to your pharmacy in [place]. Until you pick this up, you will need to take 4 of your 2.5mg tablets to get a total of 10mg. Nephrology clinic should be calling soon to arrange a follow up appointment with you. If you develop increasing weakness, dizziness, or other concerns, please return to ER as needed. documented in this encounter Medications at Time of Discharge amLODIPine (Norvasc) 10 MG tabletIndications: Renal failure, unspecified chronicity,Hyperte nsion, unspecified type Take 1 tablet (10 mg total) by mouth 1 (one) time each day 30 tablet 01/20/2025 5 aspirin 81 MG chewable tablet Chew 1 tablet (81 mg total) 1 (one) time each day DULoxetine (Cymbalta) [address] capsuleIndications :Leg pain, bilateral Take 1 capsule (30 mg total) by mouth at bed time Do not crush or chew. On file. 90 capsule 3 01/13/2025 6 glipiZIDE (GLUCOTROL) 10 MG tabletIndications: Type 2 diabetes mellitus without complication, without long-term current use of insulin (HCC) TAKE 1 TABLET in the morning and evening. On file. 180 tablet 3 01/13/2025 glucose blood test stripIndications:T ype 2 diabetes mellitus without complication, without long-term current use of insulin (HCC) Use as instructed to check blood sugar daily. 100 each 3 12/16/2024 hydrocortisone 1 % ointmentIndication s:Candidiasis of genitalia Apply topically 2 (two) times a day 30 g 09/30/2024 6 loratadine (Claritin) 10 MG tabletIndications: Allergy, subsequent encounter Take 1 tablet (10 mg total) by mouth every night On file. 90 tablet 3 01/13/2025 6 rosuvastatin (CRESTOR) 40 MG tabletIndications: Arteriosclerosis of coronary artery,Thoracic aortic aneurysm without rupture,Hyperlipid emia LDL goal <70 Take 1 tablet (40 mg total) by mouth at bed time On file. 90 tablet 3 01/13/2025 6 amLODIPine (Norvasc) 2.5 MG tabletIndications: Essential hypertension Take 1 tablet (2.5 mg total) by mouth 1 (one) time each day 30 tablet 1 01/13/2025 5 chlorthalidone (HYGROTON) 25 MG tabletIndications: Essential hypertension Take 1 tablet (25 mg total) by mouth 1 (one) time each day in the morning On file. 90 tablet 3 01/13/2025 5 losartan (COZAAR) 100 MG tabletIndications: Essential hypertension Take 1 tablet (100 mg total) by mouth 1 (one) time each day On file. 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 On file. 180 tablet 3 01/13/2025 metoprolol tartrate (Lopressor) 50 MG tabletIndications: Essential hypertension Take 1 tablet (50 mg total) by mouth 2 (two) times a day On file. 180 tablet 3 01/13/2025 5 documented as of this encounter ED Notes * Faye Mcclure RN - 01/20/2025 2:33 PM CDT Patient reports he went to the clinic for a well visit and had labs done and a change to blood pressure medication. Patient was called and told to go to the ED for an elevated creatinine. Patient reports he feels well and drinks a lot of water so he does pee frequently. Patient reports he was a daily drinker until 6 weeks ago and has been having frequent falls. * Blanca Arrington PA-C - 01/20/2025 2:23 PM CDT HPI Chief Complaint Patient presents with Abnormal Lab Patient is an 79-year-old male who has history of hypertension, NIDDM 2, COPD, who presents to the ER after being called by his primary care clinic. He had presented there earlier this morning to have outpatient labs performed, as on 01/08, he had labs for annual appointment, which showed a marked change in his renal function, which had previously been checked back in April 2024. On 01/08, GFR was noted to be just 17, and referred to the local [place] emergency department. There, they offered him admission, but apparently did not have any beds available at that facility and he was going to require transfer. He apparently did not want that, and because his numbers were improving after receiving some IV fluids, he was ultimately discharged with recommendation for close outpatient follow-up. He has had multiple medication and changes in the last 6 months, adjustments to his blood pressure medications, but there is also been concerned about him maybe not taking his medications consistently or properly. He does live alone, and was drinking pretty regularly until a few weeks ago. Today, GFR was 8 down from 17, with creatinine up to 6.3, up from 3.5 on 01/08. Patient drove himself here, and he has no complaints. He does state that he urinates frequently, and this is not new for him. He is not sure what medication changes have been made recently. He admitsthat there was a time a couple of months ago that he was having a lot of issues and did not think that he was taking his medications correctly, but now he feels confident that that is all squared away. He seems to be unaware that there has been concern about his kidney function. History provided by: Patient Patient History Patient History Allergies Allergen Reactions Cephalexin Other (see comments) Sweats/hot/weakness. No facial swelling/anaphylaxis. 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 Tobacco dependence Varicella Past Surgical History: Procedure Laterality Date HEMORRHOID SURGERY MALIGNANT SKIN LESION EXCISION Left 06/11/2020 Procedure: EXCISION LESION MALIGNANT,Left lower lip, wedge resection with Frozen Section; Surgeon: Aung Diaz MD; Location: [facility]; Service: Plastics; Laterality: Left; Family History Problem Relation Age of Onset Skin cancer Mother Breast cancer Sister Diabetes Brother Brain cancer Son Social History Tobacco Use Smoking status: Every Day Current packs/day: 1.00 Average packs/day: 1 pack/day for 64.0 years (64.0 ttl pk-yrs) Types: Cigarettes Smokeless tobacco: Never Vaping Use Vaping status: Never Used Substance Use Topics Alcohol use: Not Currently Alcohol/week: 3.0 standard drinks of alcohol Types: 3 Shots of liquor per week Drug use: No Review of Systems Review of Systems Physical Exam ED Triage Vitals Temp Heart Rate Resp BP 01/20/25 1442 01/20/25 1442 01/20/25 1442 01/20/25 1442 (!) 35.7 ??C (96.3 ??F) 50 20 124/60 SpO2 Temp Source Heart Rate Source Patient Position 01/20/25 1442 01/20/25 1442 01/20/25 1706 01/20/25 1442 100 % Oral Monitor Sitting BP Location FiO2 (%) Weight 01/20/25 1442 -- 01/20/25 1442 Left arm 71.2 kg (156 lb 15.5 oz) Body mass index is 25.32 kg/m??. Physical Exam Vitals and nursing note reviewed. Constitutional: Appearance: Normal appearance. He is not ill-appearing. HENT: Mouth/Throat: Mouth: Mucous membranes are moist. Cardiovascular: Rate and Rhythm: Regular rhythm. Bradycardia present. Heart sounds: Normal heart sounds. Pulmonary: Effort: Pulmonary effort is normal. Breath sounds: Normal breath sounds. No wheezing or rhonchi. Abdominal: General: Abdomen is flat. Bowel sounds are normal. Tenderness: There is no abdominal tenderness. There is no guarding or rebound. Musculoskeletal: General: Normal range of motion. Cervical back: Normal range of motion. Right lower leg: No edema. Left lower leg: No edema. Neurological: Mental Status: He is alert. Comments: Answers questions appropriately here today. Lawrence Coma Scale Score: 15 Procedures Labs Reviewed URINALYSIS WITH REFLEX MICROSCOPIC - Abnormal Result Value Type CLEAN CATCH Color, Urine YELLOW Clarity, Urine CLEAR Glucose, Urine 250 (*) Bilirubin, Urine NEGATIVE Ketones, Urine NEGATIVE Specific [place], Urine 1.020 Blood, Urine MODERATE (*) pH, Urine 6.0 Protein, Urine 100 (*) Urobilinogen, Urine 0.2 Nitrite, Urine NEGATIVE Leukocytes, Urine NEGATIVE URINALYSIS-MICROSCOPIC EXAM (REFLEXED) - Abnormal Casts, urine SEE BELOW Significant casts, urine NONE SEEN RBC, Urine 4-10 (*) WBC, Urine NONE SEEN Squamous Epithelial, Urine FEW Trans Epithelial, Urine NONE SEEN Renal Tubular Cells, Urine NONE SEEN Bacteria, Urine FEW Urine Crystals NONE SEEN CBC WITH AUTO DIFFERENTIAL - Abnormal WBC 9.0 RBC 3.79 (*) Hemoglobin 12.2 (*) Hematocrit 35.5 (*) Platelets 220 MCV 93.7 MCH 32.2 (*) MCHC 34.4 RDW 13.3 NRBC %, Automated 0 NRBC Absolute, Autmated 0.00 Neutrophils 65.1 Absolute Neutrophils 5.9 Lymphocytes % 20.3 Absolute Lymphocytes 1.8 Monocytes % 10.3 Monocytes Absolute 0.9 Eosinophils 3.2 Absolute Eosinophils 0.3 Basophils 0.7 Absolute Basophils 0.1 Immature Leukocytes 0.4 Immature Leukocytes Absolute 0.04 COMPREHENSIVE METABOLIC PANEL - Abnormal Total Protein 7.4 Albumin, Serum 4.4 Total Bilirubin <0.7 AST 49 (*) Alkaline Phosphatase 62 ALT (SGPT) 115 (*) Sodium 143 Potassium 3.7 Chloride 111 (*) CO2 16 (*) BUN 60 (*) Creatinine 3.02 (*) Glucose 111 (*) Calcium, Total,S 9.6 Anion Gap 16 (*) Fasting? Unknown MAGNESIUM - Abnormal Magnesium 2.5 (*) MICROALBUMIN/CREATININE RATIO - Abnormal Microalbumin,mg/day 100.8 (*) Creatinine, Urine 52 Microalb/Creat Ratio 194 (*) PROTEIN / CREATININE RATIO, URINE - Abnormal Protein, Urine, Total Random 121 (*) Creatinine, Urine 51 Prot/Creat, Ur 2.37 (*) ESTIMATED GLOMERULAR FILTRATION RATE (EGFR) - Abnormal Estimated Glomerular Filtration Rate (eGFR) 20 (*) ADD-ON TEST REQUEST Add-on Testing SEE BELOW ADD-ON TEST REQUEST Add-on Testing SEE BELOW CK Total CK 84 ED Course & MDM Medical Decision Making Chart was extensively reviewed, it appears that he had pretty normal or expected kidney function back in April 2024, when he had labs on 05/14/2024, he had GFR of 51, with creatinine 1.4, BUN 36. Around that time, his chlorthalidone was discontinued because he had a low blood pressure reading inclinic. However, by the next month, his blood pressure was back up again, and unfortunately, it look s like when they have requested that he come back in for blood pressure rechecks in clinic, he has been noncompliant with this. He was put on metoprolol 50mg BID and Losartan 100mg daily. He was advised to restart Chlorthalidone 25mg back on 08/05/24. Metroprol was then increased to 100mg BID at some point prior to September, and , they also started amlodipine 5 mg. There have been some visits as well in the last few months where there has been concern about him not taking his meds consistently or properly. He came to get labs drawn on 01/08/2025 abrasion for office visit, and on that date, they advised him to go into the local [facility] ER, as he had a GFR of 17, and BMP showed creatinineof 3.5, BUN of 65., He received IV fluids at that ER visit, and also underwent contrast abdomen andpelvis CT, which showed multiple nonobstructing stones in the right kidney, no hydronephrosis, and also marked prostamegaly. He was seen in clinic on 01/13 for follow-up and Medicare annual exam but no mention of the new SHANI in notes. He returned to clinic this morning for repeat labs, which showed a creatinine today of 6.3, with BUN of 60, and GFR of 8. They contacted him, and he states that he drove himself here at their urging. 79-year-old gentleman was sent from outpatient clinic after he had labs rechecked this morning, which showed worsening renal function, specifically, creatinine 6.3, BUN 60, GFR 8 on lab draw this morning. He was advised to come in here to the emergency department for further evaluation, and was able to drive himself here. He does live alone. Labs were repeated here, and are significantly different from this morning's results, notably, creatinine 3.02, BUN 60, GFR of 20. He did receive IV fluid bolus. He does have some anemia, with hemoglobin 12.2, likely related to the kidney injury, but thisis pretty stable from this morning, 12.8. It does appear that his baseline is 13.5-14.5. Denies anyobvious blood loss. There is a pending urgent referral for nephrology. I did touch base with [facility] today through the ER, with Dr. Chávez. He suggested obtaining a bladder scan, and considering placement ofa Singh catheter if he is retaining more than [address] imaging from outside facility had showed marked prostatic enlargement, but no hydronephrosis. He also recommended adding urine protein to creatinine ratio and microalbumin to creatinine ratio's as well. He does have 4-10 RBCs seen on microscopic, and 100 protein on microscopic. He also recommended adding CK. As far as medications, he recommended stopping the losartan and chlorthalidone at this time, and in its place, increasing the aml odipine to 10 mg daily. Patient only had 170cc post void residual today. Medication change instructions were relayed to the patient, and also written in clear language on his discharge paperwork. Amount and/or Complexity of Data Reviewed External Data Reviewed: labs, radiology and notes. Labs: ordered. Decision-making details documented in ED Course. Discussion of management or test interpretation with external provider(s): Dr Chávez, nephrology Risk Prescription drug management. Follow Up No follow-up provider specified. Discharge Medication List as of 01/20/2025 5:50 PM START taking these medications Details !! amLODIPine (Norvasc) 10 MG tablet Take 1 tablet (10 mg total) by mouth 1 (one) time each day, Starting Sun01/20/2025, Until Danielle 02/19/2025, Normal !! - Potential duplicate medications found. Please discuss with provider. CONTINUE these medications which have NOT CHANGED Details !! amLODIPine (Norvasc) 2.5 MG tablet Take 1 tablet (2.5 mg total) by mouth 1 (one) time each day, Starting Sun01/13/2025, Until 07/12/2025, NormalPaused since today until manually resumed aspirin 81 MG chewable tablet Chew 1 tablet (81 mg total) 1 (one) time each day, Historical Med chlorthalidone (HYGROTON) 25 MG tablet Take 1 tablet (25 mg total) by mouth 1 (one) time each day in the morning On file., Starting Sun01/13/2025, Normal DULoxetine (Cymbalta) [address] capsule Take 1 capsule (30 mg total) by mouth at bed time Do not crush or chew. On file., Starting Sun01/13/2025, Until Sun01/13/2026, Normal glipiZIDE (GLUCOTROL) 10 MG tablet TAKE 1 TABLET in the morning and evening. On file., Normal glucose blood test strip Use as instructed to check blood sugar daily., Normal hydrocortisone 1 % ointment Apply topically 2 (two) times a day, Starting Sun09/30/2024, Until Sun09/30/2025, Normal loratadine (Claritin) 10 MG tablet Take 1 tablet (10 mg total) by mouth every night On file., Starting Sun01/13/2025, Until Sun01/13/2026, Normal losartan (COZAAR) 100 MG tablet Take 1 tablet (100 mg total) by mouth 1 (one) time each day On file., Starting Sun01/13/2025, Until Sun01/13/2026, Normal metFORMIN (FORTAMET) 1000 MG 24 hr tablet Take 1 tablet (1,000 mg total) by mouth 2 (two) times a day with meals Do not crush, chew, or split. On file., Starting Sun01/13/2025, Until Sun01/13/2026, Normal metoprolol tartrate (Lopressor) 50 MG tablet Take 1 tablet (50 mg total) by mouth 2 (two) times a day On file., Starting Sun01/13/2025, Until Sun01/13/2026, Normal rosuvastatin (CRESTOR) 40 MG tablet Take 1 tablet (40 mg total) by mouth at bed time On file., Starting Sun01/13/2025, Until Sun01/13/2026, Normal !! - Potential duplicate medications found. Please discuss with provider. Discharge Instructions As we discussed, start the following changes: STOP Losartan (Cozaar) 100mg STOP Chlorthalidone (Hygroton) 25mg INCREASE Amlodipine (Norvasc) 2.5mg to 10mg. I sent a new prescription for 10mg tabs to your pharmacy in [place]. Until you pick this up, you will need to take 4 of your 2.5mg tablets to get a total of 10mg. Nephrology clinic should be calling soon to arrange a follow up appointment with you. If you develop increasing weakness, dizziness, or other concerns, please return to ER as needed. ED COURSE and CLINICAL IMPRESSION ED Course as of 01/20/25 1818 SunJan 20, 2025 1602 Estimated Glomerular Filtration Rate (eGFR)(!): 20 Fairly stable since 01/08/25, with the exception of this morning's outlying value of 8. [SN] 1604 Creatinine(!): 3.02 [SN] 1604 BUN(!): 60 [SN] 1638 Magnesium(!): 2.5 [SN] ED Course User Index [SN] Blanca Arrington PA-C Clinical Impressions as of 01/20/251817 Renal failure, unspecified chronicity Hypertension, unspecified type Enlarged prostate Disposition: Discharge Blanca Arrington PA-C 01/20/251817 documented in this encounter Plan of Treatment Upcoming Encounters Date Type Department Care Team (Late st Contact Info) Description 02/24/2025 8:30 AM CDT Appointment [facility] Ultrasound [address] [place] [phone] 02/24/2025 11:30 AM CDT Office Visit Nephrology [address] [place] [phone] Shin Kong MD [address] [place] [phone] documented as of this encounter Procedures Procedure Name Priority Date/Time Associated Diagnosis Comments ADD-ON TEST REQUEST STAT 01/20/2025 4 :30 PM CDT ADD-ON TEST REQUEST STAT 01/20/2025 4 :30 PM CDT ESTIMATED GLOMERULAR FILTRATION RATE (EGFR) STAT 01/20/2025 3:07 PM CDT CBC WITH AUTO DIFFERENTIAL STAT 01/20/2025 3:07 PM CDT MAGNESIUM STAT 01/20/2025 3:07 PM CDT CK STAT 01/20/2025 3:07 PM CDT COMPREHENSIVE METABOLIC PANEL STAT 01/20/2025 3:07 PM CDT URINALYSIS-MICROSCOPIC EXAM (REFLEXED) STAT 01/20/2025 2:42 PM CDT MICROALBUMIN/CREATININ E RATIO STAT 01/20/2025 2:42 PM CDT PROTEIN / CREATININE RATIO, URINE Routine 01/20/2025 2:42 PM CDT URINALYSIS WITH REFLEX MICROSCOPIC STAT 01/20/2025 2:42 PM CDT documented in this encounter Results * Add-On Test Request urine micoralbumin/creatinine ratio and protein/creatinine ratio (01/20/2025 4:30 PM CDT) Add-on Testing SEE BELOW 01/20/2025 4:52 PM CDT [facility] Comment: RMAG and RUTPR added 01/20/2025 4:30 PM CDT 01/20/2025 4:30 PM CDT Blanca Arrington PA-C LAB BLOOD ORDERABLES Final Res ult Performing Organization Address [facility] Co de Phone Number [facility] [address] [place] [address] * Add-On Test Request ck (01/20/2025 4:30 PM CDT) Pathologist [facility] [place] Add-on Testing SEE BELOW 01/20/2025 4:43 PM CDT [facility] Comment: CK added 01/20/2025 4:30 PM CDT 01/20/2025 4:30 PM CDT Blanca Arrington PA-C LAB BLOOD ORDERABLES Final Res ult [facility] [address] [place], [place] [id number] * CK (01/20/2025 3:07 PM CDT) Total CK 84 43 - 310 U/L 01/20/2025 4:50 PM CDT [facility] 01/20/2025 3:07 PM CDT 01/20/2025 3:18 PM CDT Blanca Arrington PA-C LAB BLOOD ORDERABLES Final Res ult Performing Organization Address [facility] Co de Phone Number [facility] [address] [place] [address] * (ABNORMAL) Estimated Glomerular Filtration Rate (eGFR) (01/20/2025 3:07 PM CDT) Estimated Glomerular Filtration Rate (eGFR) 20(A) 01/20/2025 3:33 PM CDT [facility] Comment: GFR calculated from serum creatinine value Chronic Kidney Disease less than 60 mL/min/1.73 m2 Kidney Failure less than 15 mL/min/1.73 m2 Note: effective 08/16/2022: 2020 CKD-EPI Equation used 01/20/2025 3:07 PM CDT 01/20/2025 3:07 PM CDT Blanca Arrington PA-C LAB BLOOD ORDERABLES Final Res ult Performing Organization Address [facility] de Phone Number [facility] [address] [place] [address] * (ABNORMAL) Magnesium (01/20/2025 3:07 PM CDT) Pathologist [facility] [place] Magnesium 2.5(H) 1.6 - 2.3 mg/dL 01/20/2025 3:33 PM CDT [facility] Blood (Blood, Venous) 01/20/2025 3:07 PM CDT 01/20/2025 3:18 PM CDT Blanca Arrington PA-C LAB BLOOD ORDERABLES Final Res ult Performing Organization Address [facility] Co de Phone Number [facility] [address] [place] [address] * (ABNORMAL) Comprehensive metabolic panel (01/20/2025 3:07 PM CDT) Total Protein 7.4 6.3 - 8.2 g/dL 01/20/2025 3:33 PM CDT [facility] Albumin, Serum 4.4 3.5 - 5.0 g/dL 01/20/2025 3:33 PM [facility] Total Bilirubin <0.7 0.1 - 1.0 mg/dL 01/20/2025 3:33 PM [facility] AST 49(H) 8 - 48 U/L 01/20/2025 3:33 PM [facility] Alkaline Phosphatase 62 38 - 128 U/L 01/20/2025 3:33 PM [facility] ALT (SGPT) 115(H) 0 - 49 U/L 01/20/2025 3:33 PM [facility] Sodium 143 135 - 145 mEq/L 01/20/2025 3:33 PM [facility] Potassium 3.7 3.5 - 5.1 mEq/L 01/20/2025 3:33 PM [facility] Chloride 111(H) 98 - 107 mEq/L 01/20/2025 3:33 PM [facility] CO2 16(L) 22 - 31 mmol/L 01/20/2025 3:33 PM [facility] BUN 60(H) 5 - 25 mg/dL 01/20/2025 3:33 PM [facility] Creatinine 3.02(H) 0.60 - 1.40 mg/dL 01/20/2025 3:33 PM [facility] Glucose 111(H) 70 - 100 mg/dL 01/20/2025 3:33 PM [facility] Calcium, Total,S 9.6 8.4 - 10.2 mg/dL 01/20/2025 3:33 PM [facility] Anion Gap 16(H) 4 - 13 01/20/2025 3:33 PM [facility] Comment: The anion gap is calculated with the following formula: AGAP = Na ? (Cl + CO2). Fasting? Unknown 01/20/2025 3:18 PM [facility] Blood (Blood, Venous) 01/20/2025 3:07 PM CDT 01/20/2025 3:18 PM T us Blanca Murphy PA-C LAB BLOOD ORDERABLES Final Res ult [facility] [address] [place] [address] * (ABNORMAL) CBC auto differential (01/20/2025 3:07 PM CDT) WBC 9.0 3.5 - 10.5 K/uL 01/20/2025 3:24 PM T [facility] RBC 3.79(L) 4.30 - 5.70 M/uL 01/20/2025 3:24 PM T [facility] Hemoglobin 12.2(L) 13.5 - 17.5 g/dL 01/20/2025 3:24 PM [facility] Hematocrit 35.5(L) 38.0 - 50.0 % 01/20/2025 3:24 PM [facility] Platelets 220 150 - 450 K/uL 01/20/2025 3:24 PM T [facility] MCV 93.7 81.2 - 95.1 fL 01/20/2025 3:24 PM [facility] MCH 32.2(H) 26.0 - 32.0 pg 01/20/2025 3:24 PM [facility] MCHC 34.4 32.0 - 36.0 g/dL 01/20/2025 3:24 PM [facility] RDW 13.3 11.8 - 15.6 % 01/20/2025 3:24 PM [facility] NRBC %, Automated 0 % 01/20/2025 3:24 PM [facility] NRBC Absolute, Autmated 0.00 K/uL 01/20/2025 3:24 PM [facility] Comment: 0-4 Days: 0.01 -0.02 >=5 Days: 0.00 Neutrophils 65.1 % 01/20/2025 3:24 PM [facility] Absolute Neutrophils 5.9 1.7 - 7.0 K/uL 01/20/2025 3:24 PM [facility] Lymphocytes % 20.3 % 01/20/2025 3:24 PM T [facility] Absolute Lymphocytes 1.8 0.9 - 2.9 K/uL 01/20/2025 3:24 PM [facility] Monocytes % 10.3 % 01/20/2025 3:24 PM [facility] Monocytes Absolute 0.9 0.3 - 0.9 K/uL 01/20/2025 3:24 PM T [facility] Eosinophils 3.2 % 01/20/2025 3:24 PM [facility] Absolute Eosinophils 0.3 0.1 - 0.5 K/uL 01/20/2025 3:24 PM [facility] Basophils 0.7 % 01/20/2025 3:24 PM [facility] Absolute Basophils 0.1 0.0 - 0.1 K/uL 01/20/2025 3:24 PM [facility] Immature Leukocytes 0.4 % 01/20/2025 3:24 PM [facility] Immature Leukocytes Absolute 0.04 0.00 - 0.04 K/uL 01/20/2025 3:24 PM [facility] Blood (Blood, Venous) 01/20/2025 3:07 PM CDT 01/20/2025 3:18 PM CDT us Blanca Arrington PA-C LAB BLOOD ORDERABLES Final Res ult [facility] [address] [place] [phone] * (ABNORMAL) Urine total protein/creatinine ratio, random (01/20/2025 2:42 PM CDT) Protein, Urine, Total Random 121(H) 0 - 13 mg/dL 01/20/2025 5:43 PM CDT [facility] Creatinine, Urine 51 mg/dL 01/20/2025 5:43 PM T [facility] Comment: No established reference range. Prot/Creat, Ur 2.37(H) 0.00 - 0.20 mg/mg 01/20/2025 5:43 PM CDT [facility] 01/20/2025 2:42 PM CDT 01/20/2025 4:51 PM CDT Blanca Arrington PA-C LAB URINE ORDERABLES Final Res ult Performing Organization Address [facility] Phone Number [facility] [address] [place], [place] [phone] * (ABNORMAL) Microalbumin/Creatinine Ratio (01/20/2025 2:42 PM CDT) Microalbumin, U 100.8(H) 0.0 - 16.6 mg/L 01/20/2025 5:14 PM CDT [facility] Creatinine, Urine 52 mg/dL 01/20/2025 5:10 PM CDT [facility] Comment: No established reference range. Microalb/Creat Ratio 194(H) 0 - 16 mg/g 01/20/2025 5:14 PM CDT [facility] 01/20/2025 2:42 PM CDT 01/20/2025 2:52 PM CDT Blanca Arrington PA-C LAB URINE ORDERABLES Final Res ult Performing Organization Address [facility] Phone Number [facility] [address] [place], [place] [phone] * (ABNORMAL) Urinalysis-Microscopic Exam (01/20/2025 2:42 PM CDT) Casts, urine SEE BELOW 0-2 Hyaline /lpf 01/20/2025 3:10 PM CDT [facility] Comment: 3-5 Fine Granular Casts Present. 0-2 Coarse Granular Casts Present. Significant casts, urine NONE SEEN None Seen /lpf 01/20/2025 3:10 PM CDT [facility] RBC, Urine 4-10(A) 0 - 3 /hpf 01/20/2025 3:10 PM CDT [facility] WBC, Urine NONE SEEN /hpf 01/20/2025 3:10 PM [facility] Comment: Male: 0-3/hpf Female: 0-10/hpf Squamous Epithelial, Urine FEW Few /lpf 01/20/2025 3:10 PM [facility] Trans Epithelial, Urine NONE SEEN 0 - 3 /hpf 01/20/2025 3:10 PM [facility] Renal Tubular Cells, Urine NONE SEEN 0 - 1 /hpf 01/20/2025 3:10 PM [facility] Bacteria, Urine FEW None Seen - Few /hpf 01/20/2025 3:10 PM [facility] Urine Crystals NONE SEEN None Seen 01/20/2025 3:10 PM [facility] 01/20/2025 2:42 PM CDT 01/20/2025 2:52 PM CDT us Blanca Arrington PA-C LAB URINE ORDERABLES Final Res ult [facility] [address] [place] [address] * (ABNORMAL) Urinalysis with reflex microscopic (01/20/2025 2:42 PM CDT) Type CLEAN CATCH 01/20/2025 2:52 PM T [facility] Color, Urine YELLOW YELLOW 01/20/2025 2:56 PM [facility] Clarity, Urine CLEAR CLEAR 01/20/2025 2:56 PM [facility] Glucose, Urine 250(A) NEGATIVE mg/dL 01/20/2025 2:56 PM [facility] Bilirubin, Urine NEGATIVE NEGATIVE 01/20/2025 2:56 PM [facility] Ketones, Urine NEGATIVE NEGATIVE mg/dL 01/20/2025 2:56 PM [facility] Specific [place], Urine 1.020 1.000 ->=1.030 01/20/2025 2:56 PM [facility] Blood, Urine MODERATE(A) NEGATIVE 01/20/2025 2:56 PM CDT [facility] pH, Urine 6.0 5.0 - 7.0 01/20/2025 2:56 PM CDT [facility] Protein, Urine 100(A) NEGATIVE-TRA CE mg/dL 01/20/2025 2:56 PM CDT [facility] Urobilinogen, Urine 0.2 0.2 - 1.0 E.U./dL 01/20/2025 2:56 PM CDT [facility] Nitrite, Urine NEGATIVE NEGATIVE 01/20/2025 2:56 PM CDT [facility] Leukocytes, Urine NEGATIVE NEGATIVE 01/20/2025 2:56 PM CDT [facility] Urine (Urine, Clean Catch) 01/20/2025 2:42 PM CDT 01/20/2025 2:52 PM CDT Blanca Arrington PA-C LAB URINE ORDERABLES Final Res ult [facility] [address] [place] [address] documented in this encounter Visit Diagnoses Diagnosis Renal failure, unspecified chronicity- Primary Hypertension, unspecified type Enlarged prostate Hypertrophy of prostate without urinary obstruction and other lower urinary tract symptoms (LUTS) documented in this encounter Administered Medications Inactive Administered Medications - up to 3 most recent administrations Medication Order MAR Action Action Date Dose Rate Site sodium chloride 0.9 % infusion 999 mL/hr, Intravenous, Continuous, Starting on Sun01/20/25 at 1500, For 5 days, 999mL/hr x 1 hr then TKO New Bag 01/20/2025 3:05 PM CDT 999 mL/hr 999 mL /hr documented in this encounter Active and Recently Administered Medications Times are shown in CDT. Continuous Medication Order 01/18/2025 01/19/2025 01/20/2025 sodium chloride 0.9 % infusion 999 mL/hr, Intravenous, Continuous, Starting on Sun01/20/25 at 1500, For 5 days, 999mL/hr x 1 hr then TKO [id number] (New Bag - Prov ider: Faye Mcclure RN)[id number] (Stopped - Provider: Faye Mcclure RN) documented in this encounter Care Teams Clerical Warehouse Worker Relationship Specialty Start Date End Date Arabella Alamo APRN [address] [place] [id number] PCP - General Family Medicine 09/07/23 documented as of this encounter
--- OUTSIDE RECORDS SUMMARY | 2025-01-27 13:00 | XMS_ITS | Encounter Summary ---
Author Organization [facility] er Address [address] [place] [id number] Care Team Providers Care Dye Box Operator Name Role Phone Arabella Alamo APRN Primary Care Provider Reason for Visit * Reason Comments Consult Acute Renal Failure * Consultation (Urgent) - Authorized Specialty Diagnoses / Procedures Referred By Martine calvert Referred To Contact Nephrology Diagnoses Acute renal failure, unspecified acute renal failure type Arabella Alamo APRN [address] [place] [address] Phone: tel: fax: Referral ID Status Reason Start Date Expiration Date Visits Requested Visits Authorized [id number] Authorized Specialty Services Required 01/20/2025 01/20/2026 1 1 Encounter Details Date Type Department Care Team (Late st Contact Info) Description 01/27/2025 1:00 PM CDT Consult [facility] [address] [place] [id number] Shin Kong MD [address] [facility] [place] [address] Acute kidney injury (Primary Dx); Stage 3b chronic kidney disease (HCC); Parenchymal renal hypertension, 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 Never 09/02/2024 [facility] Utilities Answer Date Recorded In the past 12 months has e [employer], [employer], oil, or water [employer] threatened to shut off services in your [...] week 09/02/2024 How often do you attend [facility] or pentecostal services? More than 4 times per year 09/02/2024 Do you belong to any clubs o r organizations such as gnosticism groups, unions, fraternal or athletic groups, or [...] Date Recorded PHQ-9 Total Score 1 09/02/2024 [facility] - Occupational Stress [...] place to sleep or slept in a fdc (including now)? No 10/19/2023 Housing Stability Vital Sign Answer Valentino e Recorded In the last 12 months, was t here a time when you were not able to pay the mortgage or rent on time? No 09/02/2024 Number of Times Moved in the Last Year Not on fi le 09/02/2024 At any time in the past 12 m [facility], were you homeless or living in a fdc (including now)? 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 Not on file Not on file documented as of this encounter Last Filed Vital Signs Vital Sign Reading Time Taken Comments Blood Pressure 128/57 01/27/2025 12:58 PM CDT Pulse 43 01/27/2025 12:58 PM CDT Temperature 36.2 C (97.1 F) 01/27/2025 12:58 PM CDT Respiratory Rate 20 01/27/2025 12:58 PM CDT Oxygen Saturation - - Inhaled Oxygen Concentration - - Weight 71.7 kg (158 lb 1.1 oz) 01/27/2025 12:58 PM CDT Height 166 cm (5' 5.35) 01/27/2025 12:58 PM CDT Body Mass Index 26.02 01/27/2025 12:58 PM CDT documented in this encounter Patient Instructions * Patient Instructions* Shin Kong MD - 01/27/2025 1:00 PM CDT The kidney ultrasound does not need to be done before I see you in 2 weeks and it can be done on the same day that you come back to see me in [place]. documented in this encounter Progress Notes * Shin Kong MD - 01/27/2025 1:00 PM CDT NEPHROLOGY OUTPATIENT CONSULTATION NOTE REQUESTING PROVIDER Arabella Alamo APRN [address] [place] [id number] PRIMARY PROVIDER Arabella Alamo, MIRELA CHIEF COMPLAINT/REASON FOR VISIT Chief Complaint Patient presents with Consult Acute Renal Failure HISTORY OF PRESENT ILLNESS Leo Mitchell is a 79 y.o. male here for evaluation of an episode of acute kidney injury, possible chronic kidney disease. The patient has a known history of diabetes for about 10 years and hypertension for about the same length of time, he is seen by his primary care provider about twice a yearand had had adequate diabetes and blood pressure control. The serum creatinine was 1.0 mg/dl on 2022, it was 1.47 on December 28, 2023 and 1.4 on May 14, 2024. On January 08, 2025, the patient had some laboratory work done which showed a serum creatinine of 3.51 mg/dL which constitutes a significant change, he was asked to go to his local emergency room which she did at [facility] and [place], he was found to be hemodynamically stable, a CT scan of the abdomen pelvis without IV contrast did not show any significant abnormalities, the serum creatinine was repeated and found to be 3.32 mg/dL, and the patient was eventually discharged home, to follow-up as an outpatient, and with no medication changes. He was seen by his primary care provider on January 13, he was noted to be hemodynamically stable medications were kept the same. Laboratory work was done again on January 20, 2025 showing a serum creatinineof 6.3 with a BUN of 60 and a potassium of 4.4, the patient was asked to go to the emergency room and he went to [facility] emergency room where laboratory work was repeated on January 20, 2025 this time with a serum creatinine of 3.02 mg/dL. Medications were changed, he was asked to stop chlorthalidone, losartan and amlodipine was increased from 2.5 to 10 mg a day. Presents for an evaluation today, he has been a lifelong smoker, denies any new complaints, he states his appetite is good, he is here in the company of his granddaughter Herlinda. 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 He has a 64 pack-year smoking history. He has never used smokeless tobacco. He reports that he does not currently use alcohol after a past usage of about 3.0 standard drinks of alcohol per week. He reports that he does not use drugs. He states he quit drinking about 2 months ago, he was drinking vodka about 1 gallon a week, but he noticed that he was having dreams, he fell out of bed a couple of times. He is a former executive sales assistant, he has lifting [employer] for 50 years, he lives by himself and cooks for himself. Review of Systems Respiratory: Negative. Cardiovascular: Negative. Gastrointestinal: Negative. Genitourinary: Negative. States he gets up once at night to go to urinate. Denies any difficulties with urination. ALLERGIES Allergies Allergen Reactions Cephalexin Other (see comments) Sweats/hot/weakness. No facial swelling/anaphylaxis. Levofloxacin Bupropion Doxycycline Hydrochlorothiazide Diarrhea Lisinopril HOME MEDICATIONS Current Outpatient Medications Medication Sig Dispense Refill amLODIPine (Norvasc) 10 MG tablet Take 1 tablet (10 mg total) by mouth 1 (one) time each day 30 tablet 0 aspirin 81 MG chewable tablet Chew 1 tablet (81 mg total) 1 (one) time each day DULoxetine (Cymbalta) [address] capsule Take 1 capsule (30 mg total) by mouth at bed time Do not crush or chew. On file. 90 capsule 3 glipiZIDE (GLUCOTROL) 10 MG tablet TAKE 1 TABLET in the morning and evening. On file. 180 tablet 3 glucose blood test strip Use as instructed to check blood sugar daily. 100 each 3 hydrocortisone 1 % ointment Apply topically 2 (two) times a day 30 g 0 loratadine (Claritin) 10 MG tablet Take 1 tablet (10 mg total) by mouth every night On file. 90 tablet 3 rosuvastatin (CRESTOR) 40 MG tablet Take 1 tablet (40 mg total) by mouth at bed time On file. 90 tablet 3 [Paused] amLODIPine (Norvasc) 2.5 MG tablet Take 1 tablet (2.5 mg total) by mouth 1 (one) time eachday 30 tablet 1 metoprolol tartrate (LOPRESSOR) 25 MG tablet Take 1 tablet (25 mg total) by mouth 2 (two) times a day On file. 180 tablet 3 Current Facility-Administered Medications Medication Dose Route Frequency Provider Last Rate Last Admin cyanocobalamin (VITAMIN B-12) injection 1,000 mcg 1,000 mcg Intramuscular q30 days Arabella Alamo APRN 1,000 mcg at 12/09/24 1522 Objective PHYSICAL EXAMINATION VITAL SIGNS: Visit Vitals BP 128/57 (BP Location: Right arm, Patient Position: Sitting, BP Cuff Size: Adult) Pulse (!) 43 Temp 36.2 ??C (97.1 ??F) (Temporal) Resp 20 Weight: 71.7 kg (158 lb 1.1 oz) Body mass index is 26.02 kg/m??. Repeat blood pressure measurements were 125/64 with a heart rate of 45 supine and 126/54 with a heart rate of 45 sitting up, both measurements obtained in the left arm. Neck: No jugular venous distention, no carotid bruits, no thyromegaly Chest: Clear to auscultation, no rales, no rhonchi, no wheezes. No egophony Cardiovascular: S1 and S2 normal, no gallop no rub, no murmur Abdomen: Soft, nontender to palpation, no rebound, no guarding, no hepatomegaly, no splenomegaly, no masses, no abdominal bruits. Lower extremities: Right femoral bruit, no edema, pedal pulses difficult to palpate. DIAGNOSTICS Lab Results Component Value Date WBC 9.0 01/20/2025 HGB 12.2 (L) 01/20/2025 HCT 35.5 (L) 01/20/2025 MCV 93.7 01/20/2025 PLT 220 01/20/2025 Chemistry Component Value Date/Time NA 143 01/20/2025 1507 K 3.7 01/20/2025 1507 CL 111 (H) 01/20/2025 1507 CO2 16 (L) 01/20/2025 1507 BUN 60 (H) 01/20/2025 1507 CREATININE 3.02 (H) 01/20/2025 1507 Component Value Date/Time CALCIUM 9.6 01/20/2025 1507 ALKPHOS 62 01/20/2025 1507 AST 49 (H) 01/20/2025 1507 ALT 115 (H) 01/20/2025 1507 BILITOT <0.7 01/20/2025 1507 CGFR Date Value Ref Range Status 05/17/2022 >60 Final Microalb/Creat Ratio Date Value Ref Range Status 01/20/2025 194 (H) 0 - 16 mg/g Final The urinalysis from January 20, 2025 showed glucosuria, moderate amount of blood, 100 mg/dL protein in the dipstick, 4-10 RBCs, no WBCs, 3-5 fine granular casts were present, with 0-2 coarse granular casts. The microalbumin to creatinine ratio is reported above, a urine random protein to creatinine ratio was 2.37. Of interest the urinalysis done at [facility] on January 08, 2025 reported moderate blood in the dipstick, with more than 300 mg/dL protein in the dipstick, microscopic exam 0-3 WBCs, 3-10 RBCs, amorphous crystals were present. IMAGING CT scan of the abdomen and pelvis without intravenous contrast done at [facility] [place] on January 08, 2025 was read as a 9 mm stone in the right renal collecting system additional tiny nonobstructive stones in the lower pole of the right kidney, no hydronephrosis, presence of bilateral renal cysts and marked prostatomegaly. ASSESSMENT / PLAN Visit Diagnosis 1. Acute kidney injury 2. Stage 3b chronic kidney disease (HCC) 3. 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 Tobacco dependence 5. Type 2 diabetes mellitus without complication, without long-term current use of insulin (HCC) 6. Essential hypertension What happened to Mr. Mitchell is not entirely clear, but there was a significant change in his kidneyfunction from April 2024 to the next test in December 2024. He was drinking an excessive amount of alcohol which likely had a detrimental effect in his general health. The urinalysis done at [facility] on January 20 suggests an episode of acute tubular necrosis given the finding of granular casts in the UA. I certainly agree with discontinuation of the ARB and the thiazide diuretic, his blood pressure control seems adequate in the office today. I am concerned about his bradycardia so I asked him to decrease his dose of metoprolol from 50 mg to 25 mg twice a day. He also needs to discontinue metformin given his kidney function. I think his diabetes should be adequately controlled withthe ongoing use of the sulfonylurea (glipizide). The presence of a right femoral bruit suggests peripheral arterial disease, and there can certainlybe a component of nephrosclerosis causing chronic kidney disease, but I find the presence of heavy proteinuria confusing, which needs to be followed and repeated. He also needs more workup to rule out a glomerular disease. A repeat urinalysis will tell us whether the granular casts are still present. I would like him to repeat his blood tests and urine test in 1 week, I will request a kidney ultrasound and see him again in 2 weeks. Kidney ultrasound does not need to be completed before I see him again. MARGIN CODE Total time: 62 min, including electronic medical records and diagnostic testing review prior to patient's appointment, direct [id number] contact, counseling and education, and preparation of clinical documentation. documented in this encounter Plan of Treatment Upcoming Encounters Date Type Department Care Team (Late st Contact Info) Description 02/24/2025 8:30 AM CDT Appointment [facility] Ultrasound [address] [place] [address] 02/24/2025 11:30 AM CDT Office Visit [facility] [address] [place] [address] Shin Kong MD [address] [facility] [place] [address] Scheduled Orders Name Type Priority Associated Diagnoses Orde r Schedule Ultrasound kidneys and bladder retroperitoneal complete Imaging Routine Acute kidney injury Stage 3b chronic kidney disease (HCC) Expected: 02/03/2025, Expires: 01/27/2026 documented as of this encounter Results * (ABNORMAL) Urinalysis with reflex microscopic (02/03/2025 10:45 AM CDT) Type CLEAN CATCH 02/03/2025 11:17 AM CDT [facility] [place] Color, Urine YELLOW YELLOW 02/03/2025 11:17 AM CDT [facility] [place] Clarity, Urine CLEAR CLEAR 02/03/2025 11:17 AM CDT [facility] [place] Glucose, Urine 500(A) NEGATIVE mg/dL 02/03/2025 11:17 AM CDT [facility] [place] Bilirubin, Urine NEGATIVE NEGATIVE 02/03/2025 11:17 AM CDT [facility] [place] Ketones, Urine NEGATIVE NEGATIVE mg/dL 02/03/2025 11:17 AM CDT [facility] [place] Specific [place], Urine 1.025 1.000 ->=1.030 02/03/2025 11:17 AM CDT [facility] [place] Blood, Urine TRACE(A) NEGATIVE 02/03/2025 11:17 AM CDT [facility] [place] pH, Urine 5.5 5.0 - 7.0 02/03/2025 11:17 AM CDT [facility] [place] Protein, Urine 100(A) NEGATIVE-TRA CE mg/dL 02/03/2025 11:17 AM CDT [facility] [place] Urobilinogen, Urine 0.2 0.2 - 1.0 E.U./dL 02/03/2025 11:17 AM CDT [facility] [place] Nitrite, Urine NEGATIVE NEGATIVE 02/03/2025 11:17 AM CDT [facility] [place] Leukocytes, Urine NEGATIVE NEGATIVE 02/03/2025 11:17 AM CDT [facility] [place] Urine (Urine, Clean Catch) 02/03/2025 10:45 AM CDT 02/03/2025 11:13 AM CDT us Shin Kong MD LAB URINE ORDERABL ES Final Result Performing Organization Address City/[facility]/ZIP Co de Phone Number [facility] [place] [address] [place] [address] * C4 complement (02/03/2025 8:58 AM CDT) C4 Complement 25 14 - 40 mg/dL 02/04/2025 3:18 PM CDT [facility] [employer] Comment: Test Performed by: [place] [address] Proposal Director: Cem Espinoza Ph.D.; CLIA# [id number] Blood (Blood, Venous) 02/03/2025 8:58 AM CDT 02/03/2025 2:08 PM CDT us Shin Kong MD LAB BLOOD ORDERABL ES Final Result Performing Organization Address [facility] [place] [address], * C3 complement (02/03/2025 8:58 AM CDT) C3 Complement 116 75 - 175 mg/dL 02/04/2025 3:18 PM CDT [facility] [employer] Comment: Test Performed by: [place] [address] Proposal Director: Cem Espinoza Ph.D.; CLIA# [id number] Blood (Blood, Venous) 02/03/2025 8:58 AM CDT 02/03/2025 2:08 PM CDT us Shin Kong MD LAB BLOOD ORDERABL ES Final Result Performing Organization Address City/[facility]/[place] [address], [place] * COLLIN (02/03/2025 8:58 AM CDT) COLLIN 0.2 <=1.0 (Negative ) U 02/04/2025 8:34 PM CDT [facility] Comment: ADDITIONAL INFORMATION Method: Enzyme-linked immunoassay using HEp-2 nuclear extract supplemented with purified antigens. Test Performed by: [place] [address] Proposal Director: Cem Espinoza Ph.D.; CLIA# [id number] Blood (Blood, Venous) 02/03/2025 8:58 AM CDT 02/03/2025 2:08 PM CDT us Shin Kong MD LAB BLOOD ORDERABL ES Final Result Performing Organization Address City/[facility]/[place] [address], [place] * ANCA Panel for Vasculitis (02/03/2025 8:58 AM CDT) Pathologist [facility] Myeloperoxidase Ab <0.2 <0.4 (Negative ) U 02/04/2025 11:52 PM CDT [facility] Proteinase 3 Ab. <0.2 <0.4 (Negative ) U 02/04/2025 11:52 PM CDT [facility] Comment: Test Performed by: [place] [address] Proposal Director: Cem Espinoza Ph.D.; CLIA# [id number] Blood (Blood, Venous) 02/03/2025 8:58 AM CDT 02/03/2025 2:08 PM CDT us Shin Kong MD LAB BLOOD ORDERABL ES Final Result Performing Organization Address [facility]/[place] [address], [place] * (ABNORMAL) Renal function panel (02/03/2025 8:58 AM CDT) Albumin, Serum 4.4 3.5 - 5.0 g/dL 02/03/2025 1:26 PM [facility] Sodium 141 135 - 145 mEq/L 02/03/2025 1:26 PM [facility] Potassium 3.8 3.5 - 5.1 mEq/L 02/03/2025 1:26 PM [facility] Chloride 108(H) 98 - 107 mEq/L 02/03/2025 1:26 PM [facility] CO2 22 22 - 31 mmol/L 02/03/2025 1:26 PM [facility] BUN 25 5 - 25 mg/dL 02/03/2025 1:26 PM [facility] Creatinine 1.90(H) 0.60 - 1.40 mg/dL 02/03/2025 1:26 PM [facility] Glucose 191(H) 70 - 100 mg/dL 02/03/2025 1:26 PM [facility] Calcium, Total,S 8.9 8.4 - 10.2 mg/dL 02/03/2025 1:26 PM [facility] Phosphorus 3.9 2.5 - 4.5 mg/dL 02/03/2025 1:26 PM [facility] Anion Gap 11 4 - 13 02/03/2025 1:26 PM [facility] Comment: The anion gap is calculated with the following formula: AGAP = Na ? (Cl + CO2). Fasting? 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
--- OUTSIDE RECORDS SUMMARY | 2025-02-03 08:45 | XMS_ITS | Encounter Summary ---
Author Organization [facility] er Address [address] [place] [address] Care Team Providers Care Longitudinal Float Operator Name Role Phone Arabella Alamo APRN Primary Care Provider Encounter Details Date Type Department Care Team (Late st Contact Info) Description 02/03/2025 8:45 AM CDT Lab [place] [address] [facility] [address] [place] [address] Acute kidney injury; Stage 3b chronic kidney disease (HCC) Social History Tobacco Use Types Packs/Day [...] from your doctor or pharmacy? Never 09/02/2024 [facility] Utilities Answer Date Recorded In the past 12 months has [employer], gas, oil, or water [employer] threatened to shut off services in your [...] How often do you attend chur or mandaeism services? 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 Not on file Not on file documented as of this encounter Plan of Treatment Upcoming Encounters Date Type Department Care Team (Late st Contact Info) Description 02/24/2025 8:30 AM CDT Appointment [facility] Ultrasound [address] [place] [address] 02/24/2025 11:30 AM CDT Office Visit [facility] [address] [place] [address] Shin Kong MD [address] [place] [phone] documented as of this encounter Procedures Procedure Name Priority Date/Time Associated Diagnosis Comments M-PROTEIN QUANTITATION, RANDOM, U Routine 02/03/2025 10:45 AM CDT URINALYSIS-MICROSCOP IC EXAM (REFLEXED) Routine 02/03/2025 10:45 AM CDT Acute kidney injury Stage 3b chronic kidney disease (HCC) URINALYSIS WITH REFLEX MICROSCOPIC Routine 02/03/2025 10:45 AM CDT Acute kidney injury Stage 3b chronic kidney disease (HCC) PLA2R, IMMUNOFLUORESCENCE, S Routine 02/03/2025 8:58 AM CDT ESTIMATED GLOMERULAR FILTRATION RATE (EGFR) Routine 02/03/2025 8:58 AM CDT Acute kidney injury Stage 3b chronic kidney disease (HCC) CBC BRANCH OFFICE W/DIFF Routine 02/03/2025 8:58 AM CDT ANCA PANEL FOR VASCULITIS Routine 02/03/2025 8:58 AM CDT Acute kidney injury Stage 3b chronic kidney disease (HCC) C3 COMPLEMENT Routine 02/03/2025 8:58 AM CDT Acute kidney injury Stage 3b chronic kidney disease (HCC) C4 COMPLEMENT Routine 02/03/2025 8:58 AM CDT Acute kidney injury Stage 3b chronic kidney disease (HCC) COLLIN Routine 02/03/2025 8:58 AM CDT Acute kidney injury Stage 3b chronic kidney disease (HCC) RENAL FUNCTION PANEL Routine 02/03/2025 8:58 AM CDT Acute kidney injury Stage 3b chronic kidney disease (HCC) documented in this encounter Results * (ABNORMAL) M-Protein Quantitation, Random, U (02/03/2025 10:45 AM CDT) Pathologist [facility] Albumin 25.5 mg/dL 02/11/2025 8:[address] [facility] Alpha-1 Globulin 6.8 mg/dL 02/12/20 8:[address] [facility] Alpha-2 Globulin 17.3 mg/dL 02/12/20 8:[address] [facility] Beta Globulin 9.8 mg/dL 02/11/2025 8:[address] [facility] Gamma Globulin 15.8 mg/dL 02/11/2025 8:[address] [facility] A/G Ratio 0.52 02/11/2025 8:[address] [facility] Monoclonal Protein Quant Impression - 02/11/2025 8:[address] [facility] Comment: All fractions present, no apparent M-spike. Due to the elevated protein, suggest monoclonal protein study (MPU) if clinically indicated. ADDITIONAL INFORMATION This test has been modified from the union organiser's instructions. Its performance characteristics were determined by [facility] in a manner consistent with CLIA requirements. This test has not been cleared or approved by the U.S. Food and Drug Administration. Total Protein, Random Urine 75 mg/dL 02/11/2025 8:[address] [facility] Creatinine, Random Urine 92 16 - 326 mg/dL 02/11/2025 8:[address] [facility] Protein/Creatinine Ratio 0.82(H) <0.18 mg/mg 02/11/2025 8:[address] [facility] Comment: Test Performed by: [facility] [address] [place] [address] Drill Rig Operator Helper: Cem Espinoza Ph.D.; CLIA# [id number] Test Performed by: [facility] [address] [place] [address] Drill Rig Operator Helper: Cem Espinoza Ph.D.; CLIA# [id number] 02/03/2025 10:4 5 AM CDT 02/04/2025 2:18 PM CDT us Shin Kong MD LAB URINE [place] [address], [place] * Urinalysis-Microscopic Exam (02/03/2025 10:45 AM CDT) Casts, urine SEE BELOW 0-2 Hyaline /lpf 02/04/2025 1:13 PM [facility] Comment: 0-2 Fine Granular Casts Present. Significant casts, urine NONE SEEN None Seen /lpf 02/04/2025 1:13 PM [facility] RBC, Urine 0-3 0 - 3 /hpf 02/04/2025 1:13 PM [facility] WBC, Urine 0-3 /hpf 02/04/2025 1:13 PM [facility] Comment: Male: 0-3/hpf Female: 0-10/hpf Squamous Epithelial, Urine FEW Few /lpf 02/04/2025 1:13 PM [facility] Trans Epithelial, Urine 0-3 0 - 3 /hpf 02/04/2025 1:13 PM [facility] Renal Tubular Cells, Urine NONE SEEN 0 - 1 /hpf 02/04/2025 1:13 PM [facility] Bacteria, Urine NONE SEEN None Seen - Few /hpf 02/04/2025 1:13 PM CDT [facility] Urine Crystals NONE SEEN None Seen 02/04/2025 1:13 PM CDT [facility] 02/03/2025 10:4 5 AM CDT 02/04/2025 12:37 PM CDT us Shin Kong MD LAB URINE ORDERABL ES Final Result [facility] [address] [place] [address] * (ABNORMAL) Urinalysis with reflex microscopic (02/03/2025 10:45 AM CDT) Type CLEAN CATCH 02/03/2025 11:17 AM CDT [facility] [place] Color, Urine YELLOW YELLOW 02/03/2025 11:17 AM CDT [facility] [place] Clarity, Urine CLEAR CLEAR 02/03/2025 11:17 AM CDT [facility] [place] Glucose, Urine 500(A) NEGATIVE mg/dL 02/03/2025 11:17 AM CDT [facility] [place] Bilirubin, Urine NEGATIVE NEGATIVE 02/03/2025 11:17 AM CDT [facility] [place] Ketones, Urine NEGATIVE NEGATIVE mg/dL 02/03/2025 11:17 AM CDT [facility] [place] Specific [place], Urine 1.025 1.000 ->=1.030 02/03/2025 11:17 AM CDT [facility] [place] Blood, Urine TRACE(A) NEGATIVE 02/03/2025 11:17 AM CDT [facility] [place] pH, Urine 5.5 5.0 - 7.0 02/03/2025 11:17 AM CDT [facility] [place] Protein, Urine 100(A) NEGATIVE-TRA CE mg/dL 02/03/2025 11:17 AM CDT [facility] [place] Urobilinogen, Urine 0.2 0.2 - 1.0 E.U./dL 02/03/2025 11:17 AM CDT [facility] [place] Nitrite, Urine NEGATIVE NEGATIVE 02/03/2025 11:17 AM CDT [facility] [place] Leukocytes, Urine NEGATIVE NEGATIVE 02/03/2025 11:17 AM CDT [facility] [place] Urine (Urine, Clean Catch) 02/03/2025 10:45 AM CDT 02/03/2025 11:13 AM CDT Shin Kong MD LAB URINE ORDERABL ES Final Result Performing Organization Address [facility] Co de Phone Number [facility] [place] [address] [place] [address] * (ABNORMAL) Estimated Glomerular Filtration Rate (eGFR) (02/03/2025 8:58 AM CDT) Estimated Glomerular Filtration Rate (eGFR) 35(A) 02/03/2025 1:26 PM CDT [facility] Comment: GFR calculated from serum creatinine value Chronic Kidney Disease less than 60 mL/min/1.73 m2 Kidney Failure less than 15 mL/min/1.73 m2 Note: effective 08/16/2022: 2020 CKD-EPI Equation used 02/03/2025 8:58 AM CDT 02/03/2025 8:58 AM CDT Shin Kong MD LAB BLOOD ORDERABL ES Final Result Performing Organization Address [facility] Co de Phone Number [facility] [address] [place] [address] * PLA2R, Immunofluorescence, S (02/03/2025 8:58 AM CDT) PLA2R, Immunofluorescence , S Negative Negative 02/05/2025 2:19 PM CDT [facility] Comment: ADDITIONAL INFORMATION This test was developed and its performance characteristics determined by [facility] in a manner consistent with CLIA requirements. This test has not been cleared or approved by the U.S. Food and Drug Administration. Test Performed by: [facility] [address] [place] [address] Drill Rig Operator Helper: Cem Espinoza Ph.D.; CLIA# [id number] 02/03/2025 8:58 AM CDT 02/03/2025 2:08 PM CDT us Shin Kong MD LAB BLOOD BANK YOLY T ORDERABLES Final Result [facility] [address] [place] [address], * (ABNORMAL) CBC Branch Off w/Diff (02/03/2025 8:58 AM CDT) WBC 8.9 3.5 - 10.5 K/uL 02/03/2025 9:14 AM CDT [facility] [place] [facility] RBC 3.87(L) 4.30 - 5.70 M/uL 02/03/2025 9:14 AM CDT [facility] [place] Hemoglobin 12.2(L) 13.5 - 17.5 g/dL 02/03/2025 9:14 AM CDT [facility] [place] Hematocrit 36.2(L) 38.0 - 50.0 % 02/03/2025 9:14 AM CDT [facility] [place] Platelets 224 150 - 450 K/uL 02/03/2025 9:14 AM CDT [facility] [place] MCV 93.5 81.2 - 95.1 fL 02/03/2025 9:14 AM CDT [facility] [place] [facility] MCH 31.5 26.0 - 32.0 pg 02/03/2025 9:14 AM CDT [facility] MCHC 33.7 32.0 - 36.0 g/dL 02/03/2025 9:14 AM CDT [facility] [place] RDW 13.6 11.8 - 15.6 % 02/03/2025 9:14 AM CDT [facility] [place] Lymphocytes % 21.2 % 02/03/2025 9:14 AM CDT [facility] [place] Mid-size Cells 13.3 % 02/03/2025 9:14 AM CDT [facility] [place] Granulocytes/Seun trophils 65.5 % 02/03/2025 9:14 AM CDT [facility] Lymphocytes Absolute 1.9 0.9 - 2.9 K/uL 02/03/2025 9:14 AM CDT [facility] [place] MIDS Absolute 1.2 0.4 - 1.5 K/uL 02/03/2025 9:14 AM CDT [facility] [place] Granulocytes/Seun trophils Absolute 5.8 1.7 - 7.0 K/uL 02/03/2025 9:14 AM CDT [facility] [place] 02/03/2025 8:58 AM CDT 02/03/2025 9:02 AM CDT us Shin Kong MD LAB BLOOD ORDERABL ES Final Result [facility] [place] [address] [place] [address] * (ABNORMAL) Renal function panel (02/03/2025 8:58 AM CDT) Albumin, Serum 4.4 3.5 - 5.0 g/dL 02/03/2025 1:26 PM [facility] Sodium 141 135 - 145 mEq/L 02/03/2025 1:26 PM [facility] Potassium 3.8 3.5 - 5.1 mEq/L 02/03/2025 1:26 PM [facility] Chloride 108(H) 98 - 107 mEq/L 02/03/2025 1:26 PM [facility] CO2 22 22 - 31 mmol/L 02/03/2025 1:26 PM [facility] BUN 25 5 - 25 mg/dL 02/03/2025 1:26 PM [facility] Creatinine 1.90(H) 0.60 - 1.40 mg/dL 02/03/2025 1:26 PM [facility] Glucose 191(H) 70 - 100 mg/dL 02/03/2025 1:26 PM [facility] Calcium, Total,S 8.9 8.4 - 10.2 mg/dL 02/03/2025 1:26 PM [facility] Phosphorus 3.9 2.5 - 4.5 mg/dL 02/03/2025 1:26 PM CDT [facility] Anion Gap 11 4 - 13 02/03/2025 1:26 PM CDT [facility] Comment: The anion gap is calculated with the following formula: AGAP = Na ? (Cl + CO2). Fasting? Yes 02/03/2025 9:12 AM CDT [facility] Blood (Blood, Venous) 02/03/2025 8:58 AM CDT 02/03/2025 12:52 PM CDT Shin Kong MD LAB BLOOD ORDERABL ES Final Result Performing Organization Address [facility] Co de Phone Number [facility] [address] [place] [address] * ANCA Panel for Vasculitis (02/03/2025 8:58 AM CDT) Myeloperoxidase Ab <0.2 <0.4 (Negative ) U 02/04/2025 11:52 PM CDT [facility] Proteinase 3 Ab. <0.2 <0.4 (Negative ) U 02/04/2025 11:52 PM CDT [facility] Comment: Test Performed by: [place] [address] Drill Rig Operator Helper: Cem Espinoza Ph.D.; CLIA# [id number] Blood (Blood, Venous) 02/03/2025 8:58 AM CDT 02/03/2025 2:08 PM CDT Shin Kong MD LAB BLOOD ORDERABL ES Final Result Performing Organization Address [facility]/ZIP Co de Phone Number [facility] [address] [place] [address], [place] * COLLIN (02/03/2025 8:58 AM CDT) COLLIN 0.2 <=1.0 (Negative ) U 02/04/2025 8:34 PM CDT [facility] Comment: ADDITIONAL INFORMATION Method: Enzyme-linked immunoassay using HEp-2 nuclear extract supplemented with purified antigens. Test Performed by: [place] [address] Drill Rig Operator Helper: Cem Espinoza Ph.D.; CLIA# [id number] Blood (Blood, Venous) 02/03/2025 8:58 AM CDT 02/03/2025 2:08 PM CDT us Shin Kong MD LAB BLOOD ORDERABL ES Final Result Performing Organization Address [facility] [place] [address], [place] * C3 complement (02/03/2025 8:58 AM CDT) C3 Complement 116 75 - 175 mg/dL 02/04/2025 3:18 PM CDT [facility] Comment: Test Performed by: [facility] [place] [address] Drill Rig Operator Helper: Cem Espinoza Ph.D.; CLIA# [id number] Blood (Blood, Venous) 02/03/2025 8:58 AM CDT 02/03/2025 2:08 PM CDT us Shin Kong MD LAB BLOOD ORDERABL ES Final Result Performing Organization Address City/[facility]/[place] [address], [place] * C4 complement (02/03/2025 8:58 AM CDT) C4 Complement 25 14 - 40 mg/dL 02/04/2025 3:18 PM CDT [facility] Comment: Test Performed by: [facility] [place] [address] Drill Rig Operator Helper: Cem Espinoza Ph.D.; CLIA# [id number] Blood (Blood, Venous) 02/03/2025 8:58 AM CDT 02/03/2025 2:08 PM CDT us Shin Kong MD LAB BLOOD ORDERABL ES Final Result [facility] [address] [place] [address], documented in this encounter Visit Diagnoses Diagnosis Acute kidney injury Stage 3b chronic kidney disease (HCC) documented in this encounter Care Teams Longitudinal Float Operator Relationship Specialty Start Date End Date Arabella Alamo, SALES COACH [address] [place] [phone] PCP - General Family Medicine 09/07/23 documented as of this encounter
--- OUTSIDE RECORDS SUMMARY | 2025-02-18 00:24 | XMS_ITS | Encounter Summary ---
Author Organization [facility] er Address [address] [place] [address] Care Team Providers Care Application Performance Engineer Name Role Phone Arabella Alamo APRN Primary Care Provider Reason for Visit * Reason Onset Date Comments Covid Triage 08/18/2021 Encounter Details Date Type Department Care Team (Late st Contact Info) Description 08/18/[address] [place], [place] [phone] Naty Babcock APRN, PIPE FITTER HELPER [address] [place] [phone] Covid Triage Social History Tobacco Use Types Packs/Day Years Used Date Smoking Tobacco: Every Day Cigarettes Smokeless Tobacco: Never Alcohol Use Standard Drinks/Week Comments No 0 (1 standard drink = 0.6 oz pur e alcohol) Humiliation, Afraid, Rape, and Kick questionnair e Answer Date Recorded Fear of Current or Ex-Partner No Emotionally Abused No 05/21/2019 Physically Abused No 05/21/2019 Sexually Abused No 05/21/2019 Social Connection and Isolat ion Panel [NHANES] Answer Date Recorded Frequency of Communication w ith Friends and Family Twice a week 05/21/2019 Frequency of Social Gatherin gs with Friends and Family Twice a week 05/21/2019 Attends [employer] More than 4 times per year 05/21/2019 Active Member of Clubs or Organizations No 05/21/2019 Attends Club or Organization Meetings Never 05/21/2019 Marital Status 05/21/2019 AUDIT-C Answer Date Recorded Q1: How often do you have a drink containing alc ohol? Never 11/25/2020 Average Number of Drinks Not on file 021 Frequency of Binge Drinking Not on file 03/2021 Overall Financial Resource Strain (CARDIA) Answe r Date Recorded How hard is it for you to pa y for the very basics like food, housing, medical care, and heating? Not very hard 12/02/2020 PHQ-2 Answer Date Recorded PHQ-9 Total Score 0 04/27/2021 [facility] Occupat ional Health - Occupational Stress Questionnaire Answer Date Recorded Feeling of Stress Only a little 05/21/2019 Exercise Vital Sign Answer Date Recorde d Days of Exercise per Week 7 days 2018 Minutes of Exercise per Session 30 min 05/21/2019 Hunger Vital Sign Answer Date Recorded Within the past 12 months, y ou worried that your food would run out before you got the money to buy more. Never true 12/03/19 21 Within the past 12 months, t he food you bought just didn't last and you didn't have money to get more. Never true 12/02/2020 PRAPARE - Transportation Answer Date Re corded In the past 12 months, has l ack of transportation kept you from medical appointments or from getting medications? No 11/18 In the past 12 months, has l ack of transportation kept you from meetings, work, or from getting things needed for daily living? No 12/02/2020 Education Answer Date Recorded What is the highest level of school you have completed or the highest degree you have received? 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 Not on file Not on file documented as of this encounter Plan of Treatment Upcoming Encounters Date Type Department Care Team (Late st Contact Info) Description 02/24/2025 8:30 AM CDT Appointment [facility] Ultrasound [address] [place] [address] 02/24/2025 11:30 AM CDT Office Visit [facility] [address] [place] [address] Shin Kong MD [address] [place] [phone] documented as of this encounter Visit Diagnoses Diagnosis Encounter for screening laboratory testing for COVID-19 virus- Primary documented in this encounter Additional Health Concerns Infection Onset Date Last Indicated Resolved Time COVID-19 Rule Out 08/31/2021 08/31/2021 08/31/2021 1:47 PM KNOT TIER COVID-19 Rule Out 02/21/2022 02/21/2022 02/21/2022 10:38 AM CDT COVID-19 Confirmed 02/21/2022 02/21/2022 8:17 PM CDT documented as of this encounter Care Teams Application Performance Engineer Relationship Specialty Start Date End Date Arabella Alamo APRN [address] [place] [address] PCP - General Family Medicine 09/07/23 documented as of this encounter
--- OUTSIDE RECORDS SUMMARY | 2025-02-18 00:24 | XMS_ITS | Encounter Summary ---
Author Organization [facility] er Address [address] [place] [address] Care Team Providers Care Dinkey Engine Operator Name Role Phone Arabella Alamo APRN Primary Care Provider Reason for Visit * Reason Onset Date Comments Med Refill 10/26/2022 Encounter Details Date Type Department Care Team (Late st Contact Info) Description 10/26/2022 Refill [facility] [address] [place] [address] Boo Dickey MD Type 2 diabetes mellitus without complication, without long-term current use of insulin (HCC) Social History Tobacco Use Types [...] and Family Twice a week 05/21/2019 Attends [employer] More than 4 times per year [...] Answer Date Recorded PHQ-9 Total Score 0 08/30/2022 [facility] Occupat ional Health - Occupational [...] 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 PATIONAL ANALYST * Telephone Encounter - Nieves Dillon RN - 10/26/2022 9:41 AM CST Please advise on short term Rx. PATIONAL ANALYST * Telephone Encounter - Tammy Rossi - 10/26/2022 9:08 AM CST Pt is waiting for his mail order to come in. Can Dr Dickey send in a 5 day refill to get him through? PATIONAL ANALYST documented in this encounter Plan of Treatment Upcoming Encounters Date Type Department Care Team (Late st Contact Info) Description 02/24/2025 8:30 AM CDT Appointment [facility] Ultrasound [address] [place] [address] 02/24/2025 11:30 AM CDT Office Visit [facility] [address] [place] [phone] Shin Kong MD [address] [place] [phone] documented as of this encounter Visit Diagnoses Diagnosis Type 2 diabetes mellitus without complication, without long-term current use of insulin (HCC) documented in this encounter Care Teams Dinkey Engine Operator Relationship Specialty Start Date End Date Arabella Alamo APRN [address] [place] [address] PCP - General Family Medicine 09/07/23 documented as of this encounter
--- OUTSIDE RECORDS SUMMARY | 2025-02-18 00:24 | XMS_ITS | Clinical Summary ---
Author Organization [facility] Address [address] [place] [address] Care Team Providers Care Missile Technician Name Role Phone Elsewhere, Pcp Primary Care Provider Unavailabl e Source Comments Patient records contain information from all sites at [facility]. For routine questions regarding patient records, call [phone] during business hours, M-F 8:00 AM - 5:00 PM Central Time. Record requests for emergency care only can be directed to [phone] at any time.[facility] Allergies Active Allergy Reactions Criticality Noted Date Comments Haroon Inhibitors Other (see comments) 02/22/2011 Bupropion Other (see comments) 09/21/2010 Cephalexin Other (see comments) Medium 08/31/2021 Sweats/hot/weakness. No facial swelling/anaphylaxis. Doxycycline Other (see comments) 09/21/2010 Hydrochlorothiazide Diarrhea 09/02/2024 Levofloxacin Other (see comments) Medium 04/19/2021 Lisinopril Other (see comments) 08/26/2020 Medications aspirin 81 mg chewable tablet Chew 81 mg. Ac tive atorvastatin (LIPITOR) 40 mg tablet Take 40 mg by mouth. 0 Active clotrimazole-be tamethasone (LOTRISONE) 1-0.05 % cream 1 Active cyclobenzaprine (FLEXERIL) 10 mg tablet May take 1/2 to one pill up to three times per day IF needed for muscle pain/stiffness 1 Active glipiZIDE (GLUCOTROL) 10 mg tablet TAKE 1 TABLET TWICE DAILY FOR DIABETES 1 Active ibuprofen (ADVIL,MOTRIN) 200 mg tablet Take 2 tablets by mouth as needed. 2 Active losartan (COZAAR) 50 mg tablet Take 50 mg by mouth. 0 Active metFORMIN (GLUCOPHAGE) 1,000 mg tablet 1 Active metoprolol succinate (TOPROL-XL) 50 mg 24 hr tablet Take ONE a day for blood pressure. Do not crush or chew. 0 Active ketorolac (ACULAR) 0.5 % ophthalmic solution Administer 1 drop into the right eye 4 (four) times a day. Start 01/05/2024 and use as directed 5 mL 1 4 Active prednisoLONE acetate (PRED FORTE) 1 % ophthalmic suspension Administer 1 drop into the right eye 4 (four) times a day. Start 01/05/2024 and use as directed 10 mL 1 4 Active pioglitazone (ACTOS) 15 mg tablet Take 1 tablet by mouth daily. 4 Active rosuvastatin (CRESTOR) 40 mg tablet Take 1 tablet by mouth daily. 3 Active chlorthalidone (HYGROTON) 25 mg tablet Take 1 tablet by mouth daily. 4 Active tobramycin (TOBREX) 0.3 % ophthalmic solution Administer 1 drop into the right eye 4 (four) times a day. Begin 01/05/2024. Follow schedule provided. 5 mL 1 4 Active Additional Information Patient not taking.Reported on 01/29/2024 Active Problems Problem Noted Date Diagnosed Date Abuse Tobacco Smoking 01/02/2024 Thoracic Aortic Aneurysm Without Rupture Unspeci fied 09/11/2013 Overview (01/09/2017): Ascending aortic aneurysm Hypertension 03/08/2011 Overview (01/09/2017): HTN [Hypertension] date unknown Coronary Artery Disease [place] Vessel 03/08/2011 Overview (01/09/2017): CAD - Coronary artery disease date unknown Diabetes Mellitus Type 2 12/05/2010 Overview (01/09/2017): NIDDM date unknown Chronic Obstructive Pulmonary Disease 10/27/2009 Resolved Problems Problem Noted Date Diagnosed Date Resolved Date Cataract Senile Nuclear Sclerosis Right 11/13/2023 01/29/2024 Encounters Date Type Department Care Team Description 01/08/2025 3:05 PM CDT - 01/08/2025 6:21 PM CDT Emergency [facility] [address] [place] [phone] Katie Ghotra APRN, C.N.P., D.N.P. Failure Renal Acute (Acute Kidney Injury) (Primary Dx) Discharge Disposition: Home or Self Care from Last 3 Months Immunizations Immunization Administration Dates Next Due Influenza, Unspecified 05/14/2013,05/15/2012,08/2010,06/01/2010 PPSV23 01/31/2010 Td (Adult), adsorbed 01/28/2005 Family History Medical History Relation Name Comments Diabetes Brother Emphysema Brother Heart disease Father Skin cancer Mother Bone Sister Cataracts Sister Anesthesia problems Neg Hx Glaucoma Neg Hx Hypertension Neg Hx Macular degeneration Neg Hx Relation Name Status Comments Brother Father Mother Sister Social History Tobacco Use Types Packs/Day Years Used Date Smoking Tobacco: Every Day Cigarettes 0.8 67.5 Started: 08/20/1958 Smokeless Tobacco: Never Tobacco Cessation:Ready to Q uit: Not Asked; Counseling Given: Not Answered Alcohol Use Standard Drinks/Week Comments Not Currently 0 (1 standard drink = 0.6 oz pur e alcohol) Sex and Gender Information Value Date Recorded Sex Assigned at Not on file Legal Sex Male 10:26 AM [employer] Gender Identity Not on file Sexual Orientation Not on file Last Filed Vital Signs Vital Sign Reading Time Taken Comments Blood Pressure 135/60 01/08/2025 5:15 PM CDT Pulse 56 01/08/2025 5:15 PM CDT Temperature 36.8 C (98.2 F) 01/08/2025 3:13 PM CDT Respiratory Rate 16 01/07/2024 8:47 AM CDT Oxygen Saturation 98% 01/08/2025 5:15 PM CDT Inhaled Oxygen Concentration - - Weight 76.1 kg (167 lb 12.3 oz) 023 11:08 AM [employer] Height 171 cm (5' 7.32) 08/07/2023 11: 08 AM [employer] Body Mass Index 26.02 08/07/2023 11:08 AM [employer] Plan of Treatment Health Maintenance Due Date Last Done Comments Office Visit for Blood Pressure Check / Re-check 1944 Tobacco Cessation counseling 1944 Zoster Vaccines (1 of 2) 1994 Hepatitis B Vaccines (1 of 3 - Risk 3-dose series) 2004 Urine Albumin 04/19/2014 04/19/2013, 04/26/2012 Diabetic Office Visit with Foot Exam 09/01/2014 09/01/2013 Lung Cancer Screening 05/26/2022 05/26/2021, 017 COVID-19 Vaccine ( season) 2024 07/30/2023, 06/12/2022, 11/29/2021, Additional history exists Influenza Vaccine (#1) 2024 , 05/16/2022, 05/03/2021, Additional history exists Dilated Eye Exam 08/07/2024 08/07/2023, 04/19/2021 Depression Screening (Annual PHQ-2) 08/20/2024 Fall Risk Screen (Annual) 08/20/2024 Hemoglobin A1C 07/11/2025 01/08/2025, 04/21, 12/28/2023, Additional history exists Creatinine Level (Kidney Function Test) 01/08/2026 01/08/2025, 01/08/2025, 01/08/2025, Additional history exists Potassium Level 01/08/2026 01/08/2025, 12/19, 01/08/2025, Additional history exists Sodium Level 01/08/2026 01/08/2025, 12/19, 01/08/2025, Additional history exists DTaP,Tdap,and Td Vaccines (2 - Td or Tdap) 03/29/2026 03/29/2016, 01/28/2005 Pneumococcal vaccine (50+ years) Completed 03/29/2016, 01/31/2010 RSV vaccine - (32-36 weeks) or 60+ years Completed 07/02/2023 Abdominal Aortic Aneurysm (AAA) Screen Discontinued 01/08/2025 IPV Vaccines Aged Out No longer eligi ble based on patient's age to complete this topic Medical Devices Implanted Type Area Clinical Operations Manager Device Identifier Shelf Expiration Date Model / Serial / Lot Lens Env [id number] Bicnvx +24.0d - [id number] - [id number] Implanted:Qty : 1 on 01/07/2024 by Ld Llanos M.D. at [facility] Ocular Lens Right: Eye eVoter [id number] / [id number] / Procedures Procedure Name Priority Date/Time Associated Diagnosis Comments BASIC METABOLIC PANEL, S/P Timed 01/08/2025 5:[address] ABDOMEN PELVIS WITHOUT IV CONTRAST RAD - Semiurgent (Fast; most ED patients; some inpatients) 01/08/2025 4:09 PM CDT HC URINALYSIS AUTO W MICRO STAT 01/08/2025 3:46 PM CDT URINALYSIS WITH MICROSCOPIC IF INDICATED, U STAT 01/08/2025 3:46 PM CDT BACTERIAL CULTURE, AEROBIC + SUSC, URINE STAT 01/08/2025 3:41 PM CDT BASIC METABOLIC PANEL, S/P STAT 01/08/2025 3:36 PM CDT CBC WITH DIFFERENTIAL, B STAT 01/08/2025 3:[address] CHEST WITH IV CONTRAST RAD - Routine (most inpatients and all outpatients) 05/26/2021 10:49 AM CDT Nodule Pulmonary HEMOGLOBIN A1C, B Routine 10/24/2013 8:5 0 AM [employer] ALBUMIN, RANDOM, U Routine 04/19/2013 8: 32 AM CDT from Last 3 Months or Most Recently Relevant to Health Maintenance Results * (ABNORMAL) Basic Metabolic Panel (01/08/2025 5:32 PM CDT) Only the most recent of2 resultswithin the time period is included. Potassium, P 4.2 3.6 - 5.2 mmol/L [...] 01/08/2025 5:34 PM CDT us Katie Ghotra APRN, C.N.P., D.N.P. LAB BLOOD ADD-ON Final Result [facility] [address] [place] [phone], [facility] CNFL [facility] in [address] [address] * CT Abdomen Pelvis without IV Contrast [...] 9 mm. No hydronephrosis. 2. Marked prostamegaly. Denice Delatorre APRN.N.P., D.N.P. IMG CT PRO CEDURES Final Result * (ABNORMAL) Urinalysis with Microscopic if Indicated: [...] 8.0 01/08/2025 3:51 PM CDT CNFL Specific [place] 1.020 1.001 - 1.035 01/08/2025 3:51 PM CDT CNFL Urobilinogen 0.2 0.2 - 1.0 mg/dL 01/08/2025 3:51 PM CDT CNFL Urine (Urine, Midstream) 01/08/2025 3:46 PM CDT 01/08/2025 3:46 PM CDT Denice Delatorre APRN.N.P., D.N.P. LAB URINE ORDERABLES Final Result Performing Organization Address [facility] Co de Phone Number [facility] [address] [place] [phone] [place] [address] [address] * (ABNORMAL) Microscopic Manual (01/08/2025 3:46 PM [...] CDT 01/08/2025 3:46 PM CDT Katie Ghotra APRN C.N.P., D.N.P. LAB URINE ORDERABLES Final Result [facility] [address] [place] [phone], [facility] [address] [address] * Bacterial Culture, Aerobic + Susceptibility, Urine (01/08/2025 3:41 PM CDT) Urine Culture No growth after 1 day of incubation. 01/09/2025 3:21 PM CDT ECLR Urine (Urine, Midstream) 01/08/2025 3:41 PM CDT 01/08/2025 8:31 PM CDT Comment:Specimen Source Site : Urine us Katie Ghotra APRN C.N.P Dora, D.N.P. LAB MICROBIOLOGY - GENERAL ORDERABLES Final Result [facility] [address] [place] [phone], [facility] ECLR [facility] in [address] [address] * (ABNORMAL) CBC with Differential, Blood (01/08/2025 [...] us Katie Ghotra APRN, C.N.P., D.N.P. LAB BLOOD ADD-ON Final Result Performing Organization Address City/State/[facility] Co de Phone Number [facility] [address] [place] [phone], [facility] CNFL [facility] in [address] [address] * CT Chest with IV Contrast (05/26/2021 10:49 AM CDT) Anatomical Region Laterality Modality Chest, Thoracic RST LOS, Tho racic ARZ LOS, Thoracic ARZ LOS, Thoracic FLA LOS N/A Computed Tomography 05/26/2021 10:5 6 AM CDT Impressions 05/26/2021 11:01 AM CDT 1. Scattered sub-4 mm pulmonary nodules are unchanged from 2017 and are statistically benign. No new or enlarging pulmonary nodules. 2. Moderate edema with superimposed changes of chronic bronchitis/obstructive airways disease and interstitial pulmonary fibrosis. Narrative 05/26/2021 11:01 AM CDT EXAM: CT CHEST WITH IV CONTRAST 3D/MIPS: 3D Post-Processing performed on a dependent workstation. COMPARISON: 04/12/2017 FINDINGS: Heart size is within normal limits. No pericardial effusion. Severe coronary artery atherosclerotic calcification. Moderate aortic atherosclerotic calcification. Mild atherosclerotic narrowing at the origin of the left common carotid artery. No abnormally enlarged lymph nodes. Central tracheobronchial tree is clear. Moderate centrilobular and paraseptal emphysema with superimposed changes of chronic bronchitis/obstructive airways disease, and interstitial pulmonary fibrosis. No pleural effusion or evidence for acute infection. Scattered sub-4 mm pulmonary nodules are unchanged compared to 2017 and statistically benign. No new or enlarging nodules. Partially imaged structures in the upper abdomen. Scattered subcentimeter hypoattenuating lesions in the liver are too small to characterize but likely simple cysts. Symmetric adrenal glands. Mild curvature of the spine. Spondylosis. No acute or suspicious bone or soft tissue finding. Procedure Note Francisco Javier Dodd M.D. - 05/26/2021 EXAM: CT CHEST WITH IV CONTRAST 3D/MIPS: 3D Post-Processing performed on a dependent workstation. COMPARISON: 04/12/2017 FINDINGS: Heart size is within normal limits. No pericardial effusion.Severe coronary artery atherosclerotic calcification. Moderate aorticatherosclerotic calcification. Mild atherosclerotic narrowing at the origin of the leftcommon carotid artery. No abnormally enlarged lymph nodes. Central tracheobronchial tree is clear. Moderate centrilobular andparaseptal emphysema with superimposed changes of chronic bronchitis/obstructiveairways disease, and interstitial pulmonary fibrosis. No pleural effusion orevidence for acute infection. Scattered sub-4 mm pulmonary nodules are unchangedcompared to 2017 and statistically benign. No new or enlarging nodules. Partially imaged structures in the upper abdomen. Scatteredsubcentimeter hypoattenuating lesions in the liver are too small to characterize butlikely simple cysts. Symmetric adrenal glands. Mild curvature of the spine. Spondylosis. No acute or suspicious bone or soft tissue finding. IMPRESSION: 1. Scattered sub-4 mm pulmonary nodules are unchanged from 2017 and are statistically benign. No new or enlarging pulmonary nodules. 2. Moderate edema with superimposed changes of chronicbronchitis/obstructive airways disease and interstitial pulmonary fibrosis. us Mitchel Dickey M.D. IMG CT PROCEDURES Final Resul t * (ABNORMAL) Microalbumin, Random, Urine (04/19/2013 8:32 AM CDT) Creatinine, Random, U 87.4 30.0 - 125.0 MGDL POWERCHART HXU Albumin % <12.0(L) 12.0 - 30.0 MGL POWERCHART Albumin/Creati nine Ratio <14 0 - 25 MGGM POWERCHART Urine 04/19/2013 8:32 AM CDT Georgette Poe APRN, C.N.P., D.N.P. LAB URINE ORD ERABLES Final Result POWERCHART from Last 3 Months or Most Recently Relevant to Health Maintenance Insurance [facility] MEDICARE Advance Directives For more information, please contact: [phone] Documents on File Type Date Recorded Patient Associate Professor Of Philosophy Expl anation Advance Directives 10/04/2017 2:48 PM Heal thcare Directive Healthcare Agents on File Name Relationship Healthcare Agent [facility] Communication Lavon Mitchell Son Health Care Agent Toña Todd Daughter In-Law First Alternate Health Care Agent Care Teams Missile Technician Relationship Specialty Start Date End Date Elsewhere, Pcp PCP - General Family Medicine 05/20/21
--- OUTSIDE RECORDS SUMMARY | 2025-02-18 00:24 | XMS_ITS | Encounter Summary ---
Author Organization [facility] er Address [address] [place] [address] Care Team Providers Care Financial Administrative Assistant Name Role Phone Arabella Alamo APRN Primary Care Provider Encounter Details Date Type Department Care Team (Late st Contact Info) Description 02/22/[address] [phone] Boo Dickey MD Social History Tobacco Use Types Packs/Day Years [...] and Family Twice a week 05/21/2019 Attends [employer] Services More than 4 times per year 05/21/2019 Active Member of Clubs or Organizations No 05/21/2019 Attends Club or Organization Meetings Never 05/21/2019 Marital Status 05/21/2019 AUDIT-C Answer Date Recorded Q1: How often do you have a drink containing alc ohol? Never 11/25/2020 Average Number of Drinks Not on file 021 Frequency of Binge Drinking Not on file 0403/2021 Overall Financial Resource Strain (CARDIA) Answe r Date Recorded How hard is it for you to pa y for the very basics like food, housing, medical care, and heating? 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 [address] [place] [phone] documented as of this encounter Visit Diagnoses Not on filedocumented in this encounter Additional Health Concerns Infection Onset Date Last Indicated Resolved Time COVID-19 Confirmed 02/21/2022 02/21/2022 2 8:17 PM CDT documented as of this encounter Care Teams Financial Administrative Assistant Relationship Specialty Start Date End Date Arabella Alamo APRN [address] [place] [phone] PCP - General Family Medicine 09/07/23 documented as of this encounter
--- OUTSIDE RECORDS SUMMARY | 2025-02-18 00:24 | XMS_ITS | Encounter Summary ---
Author Organization [facility] er Address [address] [place] [address] Care Team Providers Care Core Fitter Name Role Phone Arabella Alamo APRN Primary Care Provider Reason for Visit * Reason Comments Med Refill Encounter Details Date Type Department Care Team (Late st Contact Info) Description 05/21/2023 Refill [place] [address] [place] [address] Boo Dickey MD Essential hypertension Social History Tobacco Use Types [...] and Family Twice a week 05/21/2019 Attends [employer] Services More than 4 times per year [...] Answer Date Recorded PHQ-9 Total Score 0 12/27/2022 [facility] - Occupational [...] 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 * Telephone Encounter - Nieves Dillon RN - 05/25/2023 11:58 AM CDT Patient stated he has enough medication to get him through until Dr. Dickey returns. Please review request upon return. * Telephone Encounter - Yashira Fink - 05/25/2023 11:09 AM CDT Patient called to check on the status of this request. He thinks he has about a months worth left of this prescription. * Telephone Encounter - Sarah Castaneda MA - 05/23/2023 8:07 AM CDT Upcoming appointment with provider: Visit date not found Last visit in provider department: 12/27/22 Last visit requested medication was discussed: 12/27/22 Last Rx: 04/30/22, #90, 3 refills Requested Prescriptions Pending Prescriptions Disp Refills metoprolol succinate XL (TOPROL-XL) 50 MG 24 hr tablet [Pharmacy Med Name: METOPROLOL SUCCINATE ER 50 MG Tablet Extended Release 24 Hour] 90 tablet 3 Sig: TAKE 1 TABLET A DAY FOR BLOOD PRESSURE. DO NOT CRUSH OR CHEW. Labs: Component Latest Ref Rng 12/27/2022 Sodium 135 - 145 mmol/L 143 Potassium 3.5 - 5.1 mmol/L 4.6 Chloride 98 - 107 mmol/L 109 (H) CO2 22 - 31 mmol/L 25 Creatinine 0.6 - 1.4 mg/dL 1.0 BUN 5 - 25 mg/dL 24 Glucose 70 - 100 mg/dL 156 (H) Calcium, Total,S 8.4 - 10.2 mg/dL 9.7 Fasting? Yes (H) High Vitals: BP Readings from Last 2 Encounters: 05/08/23 128/62 12/27/22 (!) 154/76 documented in this encounter Plan of Treatment Upcoming Encounters Date Type Department Care Team (Late st Contact Info) Description 02/24/2025 8:30 AM CDT Appointment [facility] Ultrasound [address] [place] [address] 02/24/2025 11:30 AM CDT Office Visit [facility] [address] [place] [address] Shin Kong MD [address] [place] [phone] documented as of this encounter Visit Diagnoses Diagnosis Essential hypertension Unspecified essential hypertension documented in this encounter Care Teams Core Fitter Relationship Specialty Start Date End Date Arabella Alamo APRN [address] [place] [address] PCP - General Family Medicine 09/07/23 documented as of this encounter
--- OUTSIDE RECORDS SUMMARY | 2025-02-18 00:24 | XMS_ITS | Encounter Summary ---
Author Organization [facility] er Address [address] [place] [address] Care Team Providers Care Sales Support Administrator Name Role Phone Arabella Alamo APRN Primary Care Provider Encounter Details Date Type Department Care Team (Late st Contact Info) Description 03/22/2020 Telephone [place] [address] [place] [address] Boo Dickey MD Social History Tobacco Use [...] and Family Twice a week 05/21/2019 Attends [employer] Services More than 4 times per year 05/21/2019 Active Member of Clubs or Organizations No 05/21/2019 Attends Club or Organization Meetings Never 05/21/2019 Marital Status 05/21/2019 AUDIT-C Answer Date Recorded Frequency of Alcohol Consumption Never 05/21/2018 Average Number of Drinks Not on file 018 Frequency of Binge Drinking Not on file 09/2017 Overall Financial Resource Strain (CARDIA) Answe r Date Recorded Difficulty of Paying Living Expenses Not hard at all 05/21/2019 PHQ-2 Answer Date Recorded PHQ-2 Score 0 05/21/2019 [facility] [facility] ional Health - Occupational Stress Questionnaire Answer Date Recorded Feeling of Stress Only a little 05/21/2019 Exercise Vital Sign Answer Date Recorde d Days of Exercise per Week 7 days 2018 Minutes of Exercise per Session 30 min 05/21/2019 Hunger Vital Sign Answer Date Recorded Worried About Running Out of Food in the Last Ye ar Never true 05/21/2019 Ran Out of Food in the Last Year Never true 05/21/2019 PRAPARE - Transportation Answer Date Re corded Lack of Transportation (Medical) No 05/21/2019 Lack of Transportation (Non-Medical) No 05/21/2019 Sex and Gender Information Value Date Recorded Sex Assigned at Not on file Legal Sex Male 7:42 PM CDT Gender Identity Not on file Sexual Orientation Not on file 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 Not on file Not on file documented as of this encounter Plan of Treatment Upcoming Encounters Date Type Department Care Team (Late st Contact Info) Description 02/24/2025 8:30 AM CDT Appointment [facility] [address] [place] [address] 02/24/2025 11:30 AM CDT [facility] Visit [facility] [address] [place] [address] Shin Kong MD [address] [facility] [phone] documented as of this encounter Visit Diagnoses Not on filedocumented in this encounter Additional Health Concerns Infection Onset Date Last Indicated Resolved Time COVID-19 Rule Out 05/27/2020 05/27/2020 05/28/2020 9:36 AM CDT COVID-19 Rule Out 06/09/2020 06/09/2020 06/10/2020 1:22 AM CDT COVID-19 Rule Out 08/31/2021 08/31/2021 08/31/2021 1:47 PM [employer] [facility] COVID-19 Rule Out 02/21/2022 02/21/2022 02/21/2022 10:38 AM CDT COVID-19 Confirmed 02/21/2022 02/21/2022 8:17 PM CDT documented as of this encounter Care Teams Sales Support Administrator Relationship Specialty Start Date End Date Arabella Alamo APRN [address] [place] [phone] PCP - General Family Medicine 09/07/23 documented as of this encounter
--- OUTSIDE RECORDS SUMMARY | 2025-02-18 00:24 | XMS_ITS | Encounter Summary ---
Author Organization [facility] er Address [address] [place] [id number] Care Team Providers Care Product Management Intern Name Role Phone Arabella Alamo APRN Primary Care Provider Reason for Visit * Reason Comments Med Change Request Encounter Details Date Type Department Care Team (Late st Contact Info) Description 12/21/2024 Refill [place] [address] [place] [address] Arabella Alamo [employer] [address] [place] [id number] Type 2 diabetes mellitus without complication, without [...] from your doctor or pharmacy? Never 09/02/2024 [facility] Utilities Answer Date Recorded In the past 12 months has th e electric, gas, oil, or water company [...] How often do you attend chur or lutheran services? 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 Not on file Not on file Not on file documented as of this encounter Miscellaneous Notes * Telephone Encounter - Arabella Alamo APRN - 12/24/2024 3:06 PM CDT error documented in this encounter Plan of Treatment Upcoming Encounters Date Type Department Care Team (Late st Contact Info) Description 02/24/2025 8:30 AM CDT Appointment [facility] Ultrasound [address] [place] [id number] 02/24/2025 11:30 AM CDT Office Visit [facility] [address] [place] [phone] Shin Kong MD [address] [place] [phone] documented as of this encounter Visit Diagnoses Diagnosis Type 2 diabetes mellitus without complication, without long-term current use of insulin (HCC) documented in this encounter Care Teams Product Management Intern Relationship Specialty Start Date End Date Arabella Alamo APRN [address] [place] [address] PCP - General Family Medicine 09/07/23 documented as of this encounter
--- OUTSIDE RECORDS SUMMARY | 2025-02-18 00:24 | XMS_ITS | Encounter Summary ---
Author Organization [facility] er Address [address] [place] [address] Care Team Providers Care Metal Mixer Name Role Phone Arabella Alamo APRN Primary Care Provider Reason for Visit * Reason Comments Med Refill Encounter Details Date Type Department Care Team (Late st Contact Info) Description 04/28/2020 [facility]ill [place] [address] [place] [address] Boo Dickey MD Type 2 diabetes mellitus [...] and Family Twice a week 05/21/2019 Attends Taoist Services More than 4 times per year [...] Answer Date Recorded PHQ-2 Score 0 05/21/2019 [facility] [place] of Occupat ional Health - Occupational Stress [...] encounter Miscellaneous Notes * Telephone Encounter - Sarah Castaneda MA - 05/03/2020 12:09 PM CDT Rx completed on 04/01/2020, #180, 1 refill documented in this encounter Plan of Treatment Upcoming Encounters Date Type Department Care Team (Late st Contact Info) Description 02/24/2025 8:30 AM CDT Appointment [facility] [address] [place], [place] [id number] 02/24/2025 11:30 AM CDT Office Visit [facility] [address] [place], [place] [id number] Shin Kong MD [address] [facility] [place] [address] documented as of this encounter Visit Diagnoses Diagnosis Type 2 diabetes mellitus without complication, without long-term current use of insulin (HCC) documented in this encounter Additional Health Concerns Infection Onset Date Last Indicated Resolved Time COVID-19 Rule Out 05/27/2020 05/27/2020 05/28/2020 9:36 AM CDT COVID-19 Rule Out 06/09/2020 06/09/2020 06/10/2020 1:22 AM CDT COVID-19 Rule Out 08/31/2021 08/31/2021 08/31/2021 1:47 PM [facility] COVID-19 Rule Out 02/21/2022 02/21/2022 02/21/2022 10:38 AM CDT COVID-19 Confirmed 02/21/2022 02/21/2022 8:17 PM CDT documented as of this encounter Care Teams Metal Mixer Relationship Specialty Start Date End Date Arabella Alamo APRN [address] [place] [id number] PCP - General Family Medicine 09/07/23 documented as of this encounter
--- OUTSIDE RECORDS SUMMARY | 2025-02-18 00:25 | XMS_ITS | Clinical Summary ---
Author Organization [facility] er Address [address] [place] [address] Care Team Providers Care Housing Grant Analyst Name Role Phone Arabella Alamo APRN Primary Care Provider Allergies Active Allergy Reactions Criticality Noted Date Comments Bupropion Cephalexin Other (see comments) Medium 08/31/2021 Sweats/hot/weakness. No facial swelling/anaphylaxis. Doxycycline Hydrochlorothiazide Diarrhea 09/02/2024 Levofloxacin Medium Lisinopril Medications aspirin 81 MG chewable tablet Chew 1 tablet (81 mg total) 1 (one) time each day Active hydrocortisone 1 % ointmentIndicati ons:Candidiasis of genitalia Apply topically 2 (two) times a day 30 g 09/30/19 25 026 Active glucose blood test stripIndications :Type 2 diabetes mellitus without complication, without long-term current use of insulin (HCC) Use as instructed to check blood sugar daily. 100 each 3 12/17/19 25 Active rosuvastatin (CRESTOR) 40 MG tabletIndication s:Arterioscleros is of coronary artery,Thoracic aortic aneurysm without rupture,Hyperlip idemia LDL goal <70 Take 1 tablet (40 mg total) by mouth at bed time On file. 90 tablet 3 01/14/20 25 026 Active loratadine (Claritin) 10 MG tabletIndication s:Allergy, subsequent encounter Take 1 tablet (10 mg total) by mouth every night On file. 90 tablet 3 01/14/20 25 026 Active glipiZIDE (GLUCOTROL) 10 MG tabletIndication s:Type 2 diabetes mellitus without complication, without long-term current use of insulin (HCC) TAKE 1 TABLET in the morning and evening. On file. 180 tablet 3 01/14/20 25 Active DULoxetine (Cymbalta) [address] capsuleIndicatio ns:Leg pain, bilateral Take 1 capsule (30 mg total) by mouth at bed time Do not crush or chew. On file. 90 capsule 3 01/14/20 25 026 Active amLODIPine (Norvasc) 10 MG tabletIndication s:Renal failure, unspecified chronicity,Hyper tension, unspecified type Take 1 tablet (10 mg total) by mouth 1 (one) time each day 30 tablet 01/21/20 25 025 Active metoprolol tartrate (LOPRESSOR) 25 MG tabletIndication s:Essential hypertension Take 1 tablet (25 mg total) by mouth 2 (two) times a day On file. 180 tablet 3 01/28/20 026 Active amLODIPine (Norvasc) 2.5 MG tabletIndication s:Essential hypertension Take 1 tablet (2.5 mg total) by mouth 1 (one) time each day 30 tablet 1 01/14/20 25 025 Discontinued metoprolol tartrate (Lopressor) 50 MG tabletIndication s:Essential hypertension Take 1 tablet (50 mg total) by mouth 2 (two) times a day On file. 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 On file. 180 tablet 3 01/14/20 25 025 Discontinued losartan (COZAAR) 100 MG tabletIndication s:Essential hypertension Take 1 tablet (100 mg total) by mouth 1 (one) time each day On file. 90 tablet 3 01/14/20 25 025 Discontinued chlorthalidone (HYGROTON) 25 MG tabletIndication s:Essential hypertension Take 1 tablet (25 mg total) by mouth 1 (one) time each day in the morning On file. 90 tablet 3 01/14/20 25 025 Discontinued Hospital, Clinic, or Other Facility Administered Medication Ordered Dose Route Frequency Start Date End Date Status cyanocobalamin (VITAMIN B-12) injection 1,000 mcgIndications:Fatigue, unspecified type 1000 mcg IM Every 30 days 09/02/2024 07/29/2025 Activ e Active Problems Problem Noted Date Diagnosed Date Leg pain, bilateral 01/14/2025 Assessment & Plan (01/14/2025 12:13 PM CDT): Continue Duloxetine (Cymbalta) 30 mg nightly Allergies 09/02/2024 Assessment & Plan (01/14/2025 12:07 PM CDT): Continue Loratadine (Claritin) 10 mg daily Assessment & Plan (09/02/2024 4:30 PM EDUCATIONAL AIDE): Start Zyrtec 10 mg every night continuously Essential hypertension 2024 Assessment & Plan (01/14/2025 12:10 PM CDT): Hypertension is improving with treatment. Dietary sodium restriction. Regular aerobic exercise. Stop smoking. Medication changes per orders. Blood pressure will be reassessed in 4 weeks. Stop taking Amlodipine (Norvasc) 5 mg and start taking Amlodipine (Norvasc) 2.5 mg nightly: Follow up in 4 weeks Continue Metoprolol Tartrate (Lopressor) 50 mg daily Continue Losartan (Cozaar) 100 mg daily Continue Chlorthalidone (Hygroton) 25 mg daily Assessment & Plan (10/17/2024 4:30 PM EDUCATIONAL AIDE): Hypertension is improving with treatment. Continue current treatment regimen. Dietary sodium restriction. Weight loss. Regular aerobic exercise. Stop smoking. Continue current medications. Blood pressure will be reassessed at the next regular appointment. Continue Metoprolol 50 mg 2 x day Continue Losartan 100 mg daily Continue Chlorthalidone 25 mg daily Assessment & Plan (09/02/2024 4:31 PM EDUCATIONAL AIDE): Hypertension is improving with treatment. Dietary sodium restriction. Regular aerobic exercise. Stop smoking. Medication changes per orders. Blood pressure will be reassessed 6 weeks. Continue Losartan 100 mg daily Continue Metoprolol 100 mg 2 x day Start Atorvastatin 5 mg daily Assessment & Plan (08/08/2024 6:04 PM EDUCATIONAL AIDE): Hypertension is worsening. Medication changes per orders. Blood pressure will be reassessed 6 weeks . Continue Losartan 100 mg daily Increase Metoprolol 50 mg to Metoprolol 50 mg 2 x day Check blood pressures daily for 7 days. If blood pressures are 140/90 or above, increase Metoprolol to 100 mg 2 x day. Continue on Chlorthalidone 25 mg daily Daytime sleepiness 07/09/2024 Waking at night short of breath 07/09/2024 Assessment & Plan (07/11/2024 8:20 AM EDUCATIONAL AIDE): Referral to sleep medicine Chronic wound of head 03/11/2024 Assessment & Plan (03/11/2024 1:05 PM CDT): Referral to dermatology Actinic keratosis 02/12/2024 Assessment & Plan (02/12/2024 3:01 PM CDT): Apply to lesions twice daily for 2 to 4 weeks May try Mupirocin topical cream 2 x day for 10 days Increasing shortness of breath 12/28/2023 Assessment & Plan (09/02/2024 4:34 PM EDUCATIONAL AIDE): Declines smoking cessation All scheduled inhalers have been declines by insurance Advised Leo we could try a Duo neb but this would be used with a machine he would have to get from a supply store. Leo declines Duo nebs at this time and would just like to continue with the Albuterol inhaler as needed Assessment & Plan (12/28/2023 12:47 PM CDT): Lab drawn completed today Chest X-ray ordered Tobacco cessation Acute midline low back pain without sciatica 05/2024 Assessment & Plan (12/28/2023 12:48 PM CDT): Tylenol/Ibuprofen for pain Heat/ICE for pain Topical pain relievers Range of Motion exercises every 1-2 hours Chest x-ray ordered Visual blurriness 10/19/2023 Assessment & Plan (10/19/2023 1:07 PM EDUCATIONAL AIDE): Starting to have some blurry vision with objects greater then 1 mile distance. Referral to follow up with Ophthalmology Legally blind in left eye, as defined in [place] 08/2023 Assessment & Plan (10/19/2023 1:05 PM EDUCATIONAL AIDE): Blind in left eye Diabetes mellitus 10/19/2023 Assessment & Plan (01/14/2025 12:11 PM CDT): Diabetes is improving with treatment. Reminded to bring in blood sugar diary at next visit. Dietary recommendations for ADA diet. Regular aerobic exercise. Discussed ways to avoid symptomatic hypoglycemia. Discussed sick day management. Discussed foot care. Reminded to get yearly retinal exam. Diabetes will be reassessed in 6 months. Continue Metformin (Fortamet) 1000 mg 2 x day Medicare annual wellness visit, subsequent 09/28 Psoriasis 09/28/2023 Assessment & Plan (09/28/2023 12:39 PM EDUCATIONAL AIDE): Lotions: Eucerin cream, Cereve Cream and jhony cream for psoriasis Over the counter medications: hydrocortisone cream Prescription strength cream: Triamcinolone cream: please let me know if you would like to try this after trying hydrocortisone cream Chronic venous insufficiency 12/02/2020 Microalbuminuria 09/07/2020 Nocturia 09/07/2020 SCC (squamous cell carcinoma), lip 05/24/2020 Hyperlipidemia 10/25/2015 Assessment & Plan (01/14/2025 12:08 PM CDT): Coronary artery disease is improving with treatment. Dietary sodium restriction. Regular aerobic exercise. Stop smoking. Continue current medications. Cardiac status will be reassessed in 1 year. Continue Rosuvastatin (Crestor) 40 mg daily Thoracic aortic aneurysm (TAA) 09/11/2013 Overview (02/12/2020): Overview: Ascending aortic aneurysm Arteriosclerosis of coronary artery 03/08/2011 Overview (02/12/2020): Overview: CAD - Coronary artery disease date unknown Assessment & Plan (01/14/2025 12:08 PM CDT): Coronary artery disease is improving with treatment. Dietary sodium restriction. Regular aerobic exercise. Stop smoking. Continue current medications. Cardiac status will be reassessed in 1 year. Continue Rosuvastatin (Crestor) 40 mg daily Chronic obstructive pulmonar y disease with acute exacerbation 10/27/2009 Assessment & Plan (08/08/2024 6:02 PM EDUCATIONAL AIDE): COPD is unchanged. Warning signs of respiratory distress were reviewed with the patient. Continue current medications. Continue using Albuterol inhaler as needed Call insurance company to see if they will cover any Asthma or COPD daily inhalers. If no inhalers are covered, we can prescribe a Duo neb to use as needed for SOB. We can also do a pulmonary function test which can be done in the [facility]. Assessment & Plan (07/11/2024 8:22 AM EDUCATIONAL AIDE): COPD is worsening. Discussed monitoring symptoms and use of quick-relief medications and contacting us early in the course of exacerbations. Warning signs of respiratory distress were reviewed with the patient. Medication changes per orders. Discussed medication dosage, use, side effects, and goals of treatment in detail. Discussed technique for using MDIs and/or nebulizer. Start Tiotropium-olodaterol 2 puffs daily Start Augmentin 1 tablet 2 x day for 5 days Continue Albuterol inhaler 2 puffs every 4 hours as needed Tobacco dependence 09/27/2006 Assessment & Plan (09/02/2024 4:33 PM EDUCATIONAL AIDE): Tobacco use is unchanged. Smoking cessation counseling was provided. Tobacco use will be reassessed at the next regular appointment. Declined smoking cessation Assessment & Plan (08/08/2024 6:03 PM EDUCATIONAL AIDE): Tobacco use is worsening. Smoking cessation counseling was provided. Tobacco use will be reassessed at the next regular appointment. Declined smoking cessation at this time Assessment & Plan (06/10/2024 2:28 PM CDT): Tobacco use is unchanged. Smoking cessation counseling was provided. Tobacco use will be reassessed at the next regular appointment. Declines smoking cessation at this time Assessment & Plan (12/28/2023 12:46 PM CDT): Tobacco use is unchanged. Smoking cessation counseling was provided. Tobacco use will be reassessed at the next regular appointment. Resolved Problems Problem Noted Date Diagnosed Date Resolved Date Fall 08/08/2024 09/30/2024 Assessment & Plan (08/08/2024 6:00 PM EDUCATIONAL AIDE): Remove all rugs from floors as this is the number one tripping hazard in the older generation. Snoring 07/09/2024 09/30/2024 Assessment & Plan (07/11/2024 8:20 AM EDUCATIONAL AIDE): Referral to sleep medicine Acute non-recurrent maxillary sinusitis 06/10/2024 09/30/2024 Assessment & Plan (06/10/2024 2:26 PM CDT): Start Mucinex 1200 mg 2 x day for 7 days Start Azithromycin 500 mg today and then 250 mg on day 2-5 Start Albuterol inhaler: 2 puffs every 4 hours as needed for SOB, Chest tightness/wheezing Start Tessalon pearls: 1 tablet 3 x day Elevated blood pressure read ing in office with diagnosis of hypertension 06/10/2024 Assessment & Plan (09/02/2024 4:31 PM EDUCATIONAL AIDE): Hypertension is improving with treatment. Dietary sodium restriction. Regular aerobic exercise. Stop smoking. Medication changes per orders. Blood pressure will be reassessed 6 weeks . Continue Losartan 100 mg daily Continue Metoprolol 100 mg 2 x day Start Atorvastatin 5 mg daily Assessment & Plan (07/11/2024 8:20 AM EDUCATIONAL AIDE): Hypertension is worsening. Dietary sodium restriction. Weight loss. Regular aerobic exercise. Stop smoking. Medication changes per orders. Blood pressure will be reassessed in 4 weeks. Continue Metoprolol 50 mg daily Continue Losartan 100 mg daily Start Hydrochlorothiazide 12.5 mg daily Return in 4 weeks for blood pressure check Assessment & Plan (06/10/2024 2:28 PM CDT): Hypertension is worsening. Dietary sodium restriction. Regular aerobic exercise. Stop smoking. Continue current medications. Ambulatory blood pressure monitoring. Blood pressure will be reassessed in 2 weeks. Continue Current regimen, follow up for a nurse visit in 2 weeks for blood pressure recheck Leg pain, bilateral 05/09/2024 09/30/19 Assessment & Plan (05/09/2024 4:52 PM CDT): Keep taking 2 tums before bed Start Duloxetine 30 mg night for feeling down in the dumps/leg pain Low blood pressure reading 05/09/2024 0 09/30/2024 Assessment & Plan (05/09/2024 4:50 PM CDT): Stop chlorthalidone 25 mg return for blood pressure in 2 weeks Fatigue 03/11/2024 09/30/2024 Assessment & Plan (09/02/2024 4:32 PM EDUCATIONAL AIDE): Start Vitamin B12 shots monthly Return in 1 month for next shot, may be a nurse visit Assessment & Plan (05/09/2024 4:52 PM CDT): Return for fasting labs. Nothing to eat or drink for 12 hour. You can have water and black coffee. Assessment & Plan (03/11/2024 1:05 PM CDT): Labs ordered Diarrhea 12/28/2023 01/14/2025 Assessment & Plan (12/28/2023 12:49 PM CDT): Use Imodium 2 mg every 4 hours as needed Increase water intake Start with a bland diet until diarrhea resolves Visual disturbance of one eye 10/19/2023 01/14/2025 Type 2 diabetes mellitus jeannette ated without insulin 09/28/2023 01/14/2025 Assessment & Plan (09/02/2024 4:32 PM EDUCATIONAL AIDE): Reordered 30 days of Pioglitazone (Actos) 15 mg daily to [facility] to let me know when he picks this up so I can send the rest of the RX to [facility] pharmacy Assessment & Plan (03/11/2024 1:06 PM CDT): Diabetes is improving with treatment. Dietary recommendations for ADA diet. Regular aerobic exercise. Discussed foot care. Reminded to get yearly retinal exam. Diabetes will be reassessed in 1 month. Labs ordered, Continue current regimen for now Assessment & Plan (10/19/2023 1:05 PM EDUCATIONAL AIDE): Diabetes is unchanged. Reminded to bring in blood sugar diary at next visit. Dietary recommendations for ADA diet. Regular aerobic exercise. Smoking cessation Diabetes will be reassessed in 3 months. Continue Metformin 1000 mg 2 x day Continue Glipizide 10 mg 2 x day Continue Pioglitazone 15 mg daily Recheck blood glucose and A1C in about 2.5 more month Assessment & Plan (09/28/2023 12:37 PM EDUCATIONAL AIDE): Diabetes is worsening. Dietary recommendations for ADA diet. Regular aerobic exercise. Discussed sick day management. Discussed foot care. Medication changes per orders. Ophthalmology referral. Medication added Diabetes will be reassessed in 3 months. 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 Dietary sodium restriction. Weight loss. Regular aerobic exercise. Stop smoking. Medication changes per orders. Blood pressure will be reassessed in 4 weeks. Continue Metoprolol 50 mg daily Continue Losartan 100 mg daily Start Hydrochlorothiazide 12.5 mg daily Return in 4 weeks for blood pressure check Assessment & Plan (06/10/2024 2:27 PM CDT): Hypertension is worsening. Dietary sodium restriction. Regular aerobic exercise. Stop smoking. Continue current medications. Ambulatory blood pressure monitoring. Blood pressure will be reassessed in 2 weeks. Continue Current regimen, follow up for a nurse visit in 2 weeks for blood pressure recheck Assessment & Plan (11/23/2023 5:16 PM CDT): Hypertension is improving with treatment. Continue current treatment regimen. Dietary sodium restriction. Regular aerobic exercise. Stop smoking. Blood pressure will be reassessed 6 months . Continue Losartan (Cozaar) 100 mg daily Continue Metoprolol succinate XL (Toprol-XL) 50 mg 24 hr tablet daily Continue Chlorthalidone (Hygroton) 25 mg daily Assessment & Plan (10/19/2023 1:02 PM EDUCATIONAL AIDE): Hypertension is worsening. Medication changes per orders. Blood pressure will be reassessed in 4 weeks. Continue taking Losartan 100 mg daily Continue taking metoprolol 50 mg daily Start taking chlorthalidone 25 mg daily Follow up in 4 weeks for blood pressure check and medication management Type 2 diabetes mellitus with proteinuria 12/05/2010 01/14/2025 Overview (02/12/2020): Overview: NIDDM date unknown Encounters Date Type Department Care Team Description 02/03/2025 8:45 AM CDT Lab [address] [address] Acute kidney injury; Stage 3b chronic kidney disease (HCC) 01/28/2025 Telephone Nephrology [address] [place] [phone] Shin Kong MD Metformin questions 01/27/2025 1:00 PM CDT Consult Nephrology [address] [place] [phone] Shin Kong MD Acute kidney injury (Primary Dx); Stage 3b chronic kidney disease (HCC); Parenchymal renal hypertension, 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 Emergency Room [address] [place] [address] Renal failure, unspecified chronicity (Primary Dx); Hypertension, unspecified type; Enlarged prostate Discharge Disposition: Home or Self Care 01/20/2025 8:45 AM CDT Lab [facility] [facility] [address] [id number] Tobacco dependence (Primary Dx); Type 2 diabetes mellitus without complication, without long-term current use of insulin (HCC); Chronic wound of head; Essential hypertension 01/20/2025 Travel 01/20/2025 Results Follow-Up [facility] [address] [facility] [address] [id number] Arabella Alamo APRN 01/20/2025 Orders Only [facility] [facility] [address] [place] [address] Arabella Alamo CAMP ADVISOR Acute renal failure, unspecified acute renal failure type (Primary Dx) 01/13/2025 3:40 PM CDT Office Visit [facility] [address] [id number] Arabella Alamo, CAMP ADVISOR Type 2 diabetes mellitus without complication, without long-term current use of insulin (HCC) (Primary Dx); Arteriosclerosis of coronary artery; Thoracic aortic aneurysm without rupture; Hyperlipidemia LDL goal <70; Essential hypertension; 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); Allergy, subsequent encounter; Leg pain, bilateral; Hyperlipidemia, unspecified hyperlipidemia type; Legally blind in left eye, as defined in [place]; Tobacco dependence 01/08/2025 8:30 AM CDT Lab [facility] [facility] [address] [id number] Type 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) 01/08/2025 Telephone [address] [facility] [address] [id number] Duy Schultz MD 01/08/2025 Results Follow-Up [address] [id number] Arabella Alamo, CAMP ADVISOR 12/22/2024 Refill [facility] [address] [place] [phone] Stalin Sands MD Essential hypertension 12/21/2024 Refill [facility] [address] [place] [phone] Arabella Alamo, CAMP ADVISOR Type 2 diabetes mellitus without complication, without long-term current use of insulin (HCC) 12/16/2024 Refill [facility] [address] [place] [id number] Arabella Alamo, CAMP ADVISOR Essential hypertension 12/12/[address] [address] Arabella Alamo, CAMP ADVISOR Type 2 diabetes mellitus without complication, without long-term current use of insulin (HCC) 12/09/2024 2:20 PM CDT Office Visit [address] [address] Duy Schultz MD 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) (Primary Dx); Type 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); Diarrhea, unspecified type; Fatigue, unspecified type 12/09/[address] [address] Duy Schultz MD Med Refill from Last 3 Months Immunizations Immunization Administration Dates Next Due COVID-19, mRNA, LNP-S, PF, 3 0mcg/0.3mL dose Pfizer 11/29/2021,05/12/2021,11/17/2020,10/27 COVID-19, mRNA, LNP-S, bival ent booster 12 yr and older, PF, 30mcg/0.3mL dose (pfizer) 06/12/2022 COVId-19, mRNA, LNP-s, PF, 5 0mcg/0.5mL Ages 12+ (Moderna Spikevax) 07/30/2023 Flu Vaccine High Dose 65yrs and Older IM 05/08/2023,05/16/2022,05/03/2021,04/01,05/22/2019,05/08/2018,05/17/2017 ,05/30/2016 INFLUENZA QUADRIVALENT MDV (IM) 05/08/2023 Influenza 6mo-64yrs Quad Pre servative Free IM 05/20/2011,06/01/2010,1944 Influenza, Split Virus, Triv alent, Preservative 05/18/2014,05/18/2013,05/15/2012,07/01 Influenza, Unspecified 05/14/2013,2011,05/20/2011,06/01 Pneumococcal Conjugate 13-Valent 03/29/2016 Pneumococcal Polysaccharide 01/31/2010 RSV, recombinant, 0.5mL PF (Arexvy) 07/02/2023 Td 01/28/2005 Tdap 03/29/2016 Family History Medical History Relation Comments Diabetes Brother 1 Skin cancer Mother Breast cancer Sister 1 Brain cancer Son Relation Status Comments Brother 1 Brother 2 Father Mother Sister 1 Sister 2 Alive Son Social History Tobacco Use Types Packs/Day Years Used Date Smoking Tobacco: Every Day Cigarettes 1 64 Smokeless Tobacco: Never Tobacco Cessation:Ready to Q [...] from your doctor or pharmacy? Never 09/02/2024 [facility] Utilities Answer Date Recorded In the past 12 months has e [employer] 2000, gas, oil, or water [employer] threatened to shut off services in your [...] How often do you attend chur or adventism services? More than 4 times per year 09/02/2024 Do you belong to any clubs o r organizations such as taoist groups, unions, fraternal or athletic groups, or [...] Date Recorded PHQ-9 Total Score 1 09/02/2024 [facility] [place] [facility] Occupat ional [facility] - Occupational Stress [...] place to sleep or slept in a mcfp (including now)? No 10/19/2023 Housing Stability Vital Sign Answer Valentino e Recorded In the last 12 months, was t here a time when you were not able to pay the mortgage or rent on time? No 09/02/2024 Number of Times Moved in the Last Year Not on fi le 09/02/2024 At any time in the past 12 m [facility], were you homeless or living in a mcfp (including now)? No 09/02/2024 Interpersonal Safety Questionnaire [...] Industry Job Start Date Job End Date local company intermodal truck driver Not on file Not on file Not on file Last Filed Vital Signs Vital Sign Reading Time Taken Comments Blood Pressure 128/57 01/27/2025 12:58 PM CDT Pulse 43 01/27/2025 12:58 PM CDT Temperature 36.2 C (97.1 F) 01/27/2025 12:58 PM CDT Respiratory Rate 20 01/27/2025 12:58 PM CDT Oxygen Saturation 96% 01/20/2025 5:06 PM CDT Inhaled Oxygen Concentration - - Weight 71.7 kg (158 lb 1.1 oz) 01/27/2025 12:58 PM CDT Height 166 cm (5' 5.35) 01/27/2025 12:58 PM CDT Body Mass Index 26.02 01/27/2025 12:58 PM CDT Plan of Treatment Upcoming Encounters Date Type Department Care Team (Late st Contact Info) Description 02/24/2025 8:30 AM CDT Appointment [facility] [address] [place] [address] 02/24/2025 11:30 AM CDT Office Visit Nephrology [address] [place] [id number] Shin Kong MD [address] [place] [address] Health Maintenance Due Date Last Done Comments Zoster Vaccines (1 of 2) 1995 Medicare Annual Wellness Visit (AWV) 09/28/2024 09/28/2023, 05/21/2019 Influenza Vaccine (#1) 2025 3, 05/08/2023, 05/16/2022, Additional history exists COVID-19 Vaccine ( season) 2025 07/30/2023, 06/12/2022, 11/29/2021, Additional history exists Postponed from 04/20/2024 (Patient Preference) Diabetes: Hemoglobin A1C 07/11/2025 025, 05/14/2024, 12/28/2023, Additional history exists Diabetes: Retinopathy Screening 08/07/2025 08/07/2023, 11/16/2020, 02/17/2019, Additional history exists Lipid Panel 01/08/2026 01/08/2025, 12/18, 09/05/2023, Additional history exists Diabetes: Foot Exam 01/13/2026 01/13/2025, 09/28/2023, 08/30/2022, Additional history exists Diabetes: Urine Protein Screening 01/20/2026 01/20/2025, 03/11/2024, 12/27/2022, Additional history exists Fall Risk Performed 01/20/2026 01/20/2025, 8 Potassium Level 02/03/2026 02/03/2025, 06/0 10/2024, 01/20/2025, Additional history exists DTaP,Tdap,and Td Vaccines (2 - Td or Tdap) 03/29/2026 03/29/2016, 01/28/2005 Pneumococcal Vaccine: 50+ Years Completed 03/29/2016, 01/31/2010 HPV Vaccines Aged Out No longer eligi ble based on patient's age to complete this topic Procedures Procedure Name Priority Date/Time Associated Diagnosis Comments M-PROTEIN QUANTITATION, RANDOM, U Routine 02/03/2025 10:45 AM CDT URINALYSIS-MICROSCOPI C EXAM (REFLEXED) Routine 02/03/2025 10:45 AM CDT Acute kidney injury Stage 3b chronic kidney disease (HCC) URINALYSIS WITH REFLEX MICROSCOPIC Routine 02/03/2025 10:45 AM CDT Acute kidney injury Stage 3b chronic kidney disease (HCC) ESTIMATED GLOMERULAR FILTRATION RATE (EGFR) Routine 02/03/2025 8:58 AM CDT Acute kidney injury Stage 3b chronic kidney disease (HCC) PLA2R, IMMUNOFLUORESCENCE, S Routine 02/03/2025 8:58 AM CDT CBC BRANCH OFFICE W/DIFF Routine 02/03/2025 8:58 AM CDT RENAL FUNCTION PANEL Routine 02/03/2025 8:58 AM CDT Acute kidney injury Stage 3b chronic kidney disease (HCC) ANCA PANEL FOR VASCULITIS Routine 02/03/2025 8:58 [...] injury Stage 3b chronic kidney disease (HCC) ADD-ON TEST REQUEST STAT 01/20/2025 4 :30 PM CDT ADD-ON TEST REQUEST STAT 01/20/2025 4 :30 PM CDT ESTIMATED GLOMERULAR FILTRATION RATE (EGFR) STAT 01/20/2025 3:07 PM CDT CK STAT 01/20/2025 3:07 PM CDT MAGNESIUM STAT 01/20/2025 3:07 PM CDT COMPREHENSIVE METABOLIC PANEL STAT 01/20/2025 3:07 PM CDT CBC WITH AUTO DIFFERENTIAL STAT 01/20/2025 3:07 PM CDT PROTEIN / CREATININE RATIO, URINE Routine 01/20/2025 2:42 PM CDT MICROALBUMIN/CREATINI NE RATIO STAT 01/20/2025 2:42 PM CDT URINALYSIS-MICROSCOPI C EXAM (REFLEXED) STAT 01/20/2025 2:42 PM CDT URINALYSIS WITH REFLEX MICROSCOPIC STAT 01/20/2025 2:42 PM CDT ESTIMATED GLOMERULAR FILTRATION RATE (EGFR) Routine 01/20/2025 [...] dependence Chronic wound of head Essential hypertension ESTIMATED GLOMERULAR FILTRATION RATE (EGFR) Routine 01/08/2025 [...] 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) from Last 3 Months Results * (ABNORMAL) M-Protein Quantitation, Random, U (02/03/2025 10:45 AM CDT) Pathologist [facility] Albumin 25.5 mg/dL 02/11/2025 8:37 AM CDT [facility] Alpha-1 Globulin 6.8 mg/dL 02/12/20 8:37 AM CDT [facility] Alpha-2 Globulin 17.3 mg/dL 02/12/20 8:37 AM CDT [facility] Beta Globulin 9.8 mg/dL 02/11/2025 8:37 AM CDT [facility] Gamma Globulin 15.8 mg/dL 02/11/2025 8:37 AM CDT [facility] A/G Ratio 0.52 02/11/2025 8:37 AM CDT [facility] Monoclonal Protein Quant Impression - 02/11/2025 8:37 AM CDT [facility] Comment: All fractions present, no apparent M-spike. Due to the elevated protein, suggest monoclonal protein study (MPU) if clinically indicated. ADDITIONAL INFORMATION This test has been modified from the breaker up's instructions. Its performance characteristics were determined by [facility] in a manner consistent with CLIA requirements. This test has not been cleared or approved by the U.S. Food and Drug Administration. Total Protein, Random Urine 75 mg/dL 02/11/2025 8:37 AM CDT [facility] Creatinine, Random Urine 92 16 - 326 mg/dL 02/11/2025 8:37 AM CDT [facility] Protein/Creatinine Ratio 0.82(H) <0.18 mg/mg 02/11/2025 8:37 AM CDT [facility] Comment: Test Performed by: [place] [address] Pharmacy Services Director: Cem Espinoza Ph.D.; CLIA# [id number] Test Performed by: [place] [address] Pharmacy Services Director: Cem Espinoza Ph.D.; CLIA# [id number] 02/03/2025 10:4 5 AM CDT 02/04/2025 2:18 PM CDT us Shin Kong MD LAB URINE [place] [address], [place] * Urinalysis-Microscopic Exam (02/03/2025 10:45 AM CDT) Only the most recent of2 resultswithin the time period is included. Casts, urine SEE BELOW 0-2 Hyaline /lpf 02/04/2025 1:13 PM T [facility] Comment: 0-2 Fine Granular Casts Present. Significant casts, urine NONE SEEN None Seen /lpf 02/04/2025 1:13 PM CDT [facility] RBC, Urine 0-3 0 - 3 /hpf 02/04/2025 1:13 PM T [facility] WBC, Urine 0-3 /hpf 02/04/2025 1:13 PM T [facility] Comment: Male: 0-3/hpf Female: 0-10/hpf Squamous Epithelial, Urine FEW Few /lpf 02/04/2025 1:13 PM [facility] Trans Epithelial, Urine 0-3 0 - 3 /hpf 02/04/2025 1:13 PM [facility] Renal Tubular Cells, Urine NONE SEEN 0 - 1 /hpf 02/04/2025 1:13 PM [facility] Bacteria, Urine NONE SEEN None Seen - Few /hpf 02/04/2025 1:13 PM [facility] Urine Crystals NONE SEEN None Seen 02/04/2025 1:13 PM [facility] 02/03/2025 10:4 5 AM CDT 02/04/2025 12:37 PM CDT us Shin Kong MD LAB URINE ORDERABL ES Final Result [facility] [address] [place] [address] * (ABNORMAL) Urinalysis with reflex microscopic (02/03/2025 10:45 AM CDT) Only the most recent of2 resultswithin the time period is included. Type CLEAN CATCH 02/03/2025 11:17 AM CDT [facility] [place] Color, Urine YELLOW YELLOW 02/03/2025 11:17 AM CDT [facility] [place] Clarity, Urine CLEAR CLEAR 02/03/2025 11:17 AM CDT [facility] Glucose, Urine 500(A) NEGATIVE mg/dL 02/03/2025 11:17 AM CDT [facility] [place] Bilirubin, Urine NEGATIVE NEGATIVE 02/03/2025 11:17 AM CDT [facility] [place] Ketones, Urine NEGATIVE NEGATIVE mg/dL 02/03/2025 11:17 AM CDT [facility] [place] Specific [place], Urine 1.025 1.000 ->=1.030 02/03/2025 11:17 AM CDT [facility] [place] [place] Blood, Urine TRACE(A) NEGATIVE 02/03/2025 11:17 AM CDT [facility] [place] pH, Urine 5.5 5.0 - 7.0 02/03/2025 11:17 AM CDT [facility] Protein, Urine 100(A) NEGATIVE-TRA CE mg/dL 02/03/2025 11:17 AM CDT [facility] [place] Urobilinogen, Urine 0.2 0.2 - 1.0 E.U./dL 02/03/2025 11:17 AM CDT [facility] [employer] Nitrite, Urine NEGATIVE NEGATIVE 02/03/2025 11:17 AM CDT [facility] [employer] Leukocytes, Urine NEGATIVE NEGATIVE 02/03/2025 11:17 AM T [facility] [place] [place] Urine (Urine, Clean Catch) 02/03/2025 10:45 AM CDT 02/03/2025 11:13 AM CDT us Shin Kong MD LAB URINE ORDERABL ES Final Result [facility] [address] [place] [address] * PLA2R, Immunofluorescence, S (02/03/2025 8:58 AM CDT) PLA2R, Immunofluorescence , S Negative Negative 02/05/2025 2:19 PM CDT [employer] Comment: ADDITIONAL INFORMATION This test was developed and its performance characteristics determined by [facility] in a manner consistent with CLIA requirements. This test has not been cleared or approved by the U.S. Food and Drug Administration. Test Performed by: [facility] [address] [id number] Pharmacy Services Director: Cem Espinoza Ph.D.; CLIA# [id number] 02/03/2025 8:58 AM CDT 02/03/2025 2:08 PM CDT Shin Kong MD LAB BLOOD BANK YOLY T ORDERABLES Final Result Performing Organization Address City/[facility]/ZIP Co de Phone Number [facility] [address] [place] [address], * (ABNORMAL) Estimated Glomerular Filtration Rate (eGFR) (02/03/2025 8:58 AM CDT) Only the most recent of4 resultswithin the time period is included. Estimated Glomerular Filtration Rate (eGFR) 35(A) 02/03/2025 1:26 PM CDT [facility] Comment: GFR calculated from serum creatinine value Chronic Kidney Disease less than 60 mL/min/1.73 m2 Kidney Failure less than 15 mL/min/1.73 m2 Note: effective 08/16/2022: 2020 CKD-EPI Equation used 02/03/2025 8:58 AM CDT 02/03/2025 8:58 AM CDT Shin Kong MD LAB BLOOD ORDERABL ES Final Result [facility] [address] [place] [address] * (ABNORMAL) CBC Branch Off w/Diff (02/03/2025 8:58 AM CDT) Only the most recent of2 resultswithin the time period is included. WBC 8.9 3.5 - 10.5 K/uL 02/03/2025 9:14 AM CDT [facility] [place] RBC 3.87(L) 4.30 - 5.70 [...] 95.1 fL 02/03/2025 9:14 AM CDT [facility] [place] MCH 31.5 26.0 - 32.0 pg 02/03/2025 9:14 AM CDT [facility] [place] MCHC 33.7 32.0 - 36.0 g/dL 02/03/2025 9:14 AM CDT [facility] [place] RDW 13.6 11.8 - 15.6 % 02/03/2025 9:14 AM CDT [facility] [place] Lymphocytes % 21.2 % 02/03/2025 9:14 AM CDT [facility] [place] Mid-size Cells 13.3 % 02/03/2025 9:14 AM CDT [facility] [place] Granulocytes/Seun trophils 65.5 % 02/03/2025 9:14 AM CDT [facility] [place] Lymphocytes Absolute 1.9 0.9 - 2.9 K/uL 02/03/2025 9:14 AM CDT [facility] [place] MIDS Absolute 1.2 0.4 - 1.5 K/uL 02/03/2025 9:14 AM CDT [facility] [place] Granulocytes/Seun trophils Absolute 5.8 1.7 - 7.0 K/uL 02/03/2025 9:14 AM CDT [facility] [place] 02/03/2025 8:58 AM CDT 02/03/2025 9:02 AM CDT us Shin Kong MD LAB BLOOD ORDERABL ES Final Result [facility] [place] [address] [place] [address] * ANCA Panel for Vasculitis (02/03/2025 8:58 AM CDT) Myeloperoxidase Ab <0.2 <0.4 (Negative ) U 02/04/2025 11:[address] [facility] Proteinase 3 Ab. <0.2 <0.4 (Negative ) U 02/04/2025 11:52 PM CDT [facility] Comment: Test Performed by: [place] [address] Pharmacy Services Director: Cem Espinoza Ph.D.; CLIA# [id number] Blood (Blood, Venous) 02/03/2025 8:58 AM CDT 02/03/2025 2:08 PM CDT Shin Kong MD LAB BLOOD ORDERABL ES Final Result Performing Organization Address City/[facility]/[place] [address], * C3 complement (02/03/2025 8:58 AM CDT) C3 Complement 116 75 - 175 mg/dL 02/04/2025 3:18 PM CDT [facility] Comment: Test Performed by: [place] [address] Pharmacy Services Director: Cem Espinoza Ph.D.; CLIA# [id number] Blood (Blood, Venous) 02/03/2025 8:58 AM CDT 02/03/2025 2:08 PM CDT Shin Kong MD LAB [place]OD [place] [address], * C4 complement (02/03/2025 8:58 AM CDT) C4 Complement 25 14 - 40 mg/dL 02/04/2025 3:18 PM CDT [facility] Comment: Test Performed by: [place] [address] Pharmacy Services Director: Cem Espinoza Ph.D.; CLIA# [id number] Blood (Blood, Venous) 02/03/2025 8:58 AM CDT 02/03/2025 2:08 PM CDT Shin Kong MD LAB BLOOD ORDERABL ES Final Result Performing Organization Address [facility] [place] [place] [address], * COLLIN (02/03/2025 8:58 AM CDT) Pathologist [facility] COLLIN 0.2 <=1.0 (Negative ) U 02/04/2025 8:34 PM CDT [facility] Comment: ADDITIONAL INFORMATION Method: Enzyme-linked immunoassay using HEp-2 nuclear extract supplemented with purified antigens. Test Performed by: [facility] [place] [address] Pharmacy Services Director: Cem Espinoza Ph.D.; CLIA# [id number] Blood (Blood, Venous) 02/03/2025 8:58 AM CDT 02/03/2025 2:08 PM CDT Shin Kong MD LAB BLOOD ORDERABL ES Final Result Performing Organization Address [facility] [place] [address], * (ABNORMAL) Renal function panel (02/03/2025 8:58 AM CDT) Pathologist [facility] Albumin, Serum 4.4 3.5 - 5.0 g/dL 02/03/2025 1:26 PM CDT [facility] Sodium 141 135 - 145 mEq/L 02/03/2025 1:26 PM CDT [facility] Potassium 3.8 3.5 - 5.1 mEq/L 02/03/2025 1:26 PM [facility] Chloride 108(H) 98 - 107 mEq/L 02/03/2025 1:26 PM [facility] CO2 22 22 - 31 mmol/L 02/03/2025 1:26 PM [facility] BUN 25 5 - 25 mg/dL 02/03/2025 1:26 PM [facility] Creatinine 1.90(H) 0.60 - 1.40 mg/dL 02/03/2025 1:26 PM [facility] Glucose 191(H) 70 - 100 mg/dL 02/03/2025 1:26 PM [facility] Calcium, Total,S 8.9 8.4 - 10.2 mg/dL 02/03/2025 1:26 PM [facility] Phosphorus 3.9 2.5 - 4.5 mg/dL 02/03/2025 1:26 PM [facility] Anion Gap 11 4 - 13 02/03/2025 1:26 PM [facility] Comment: The anion gap is calculated with the following formula: AGAP = Na ? (Cl + CO2). Fasting? Yes 02/03/2025 9:12 AM [facility] Blood (Blood, Venous) 02/03/2025 8:58 AM CDT 02/03/2025 12:52 PM CDT us Shin Kong MD LAB BLOOD ORDERABL ES Final Result [facility] [address] [place] [address] * Add-On Test Request urine micoralbumin/creatinine ratio and protein/creatinine ratio (01/20/2025 4:30 PM CDT) Only the most recent of2 resultswithin the time period is included. Add-on Testing SEE BELOW 01/20/2025 4:52 PM [facility] Comment: RMAG and RUTPR added 01/20/2025 4:30 PM CDT 01/20/2025 4:30 PM CDT us Blanca Arrington PA-C LAB BLOOD ORDERABLES Final Res ult [facility] [address] [place] [address] * (ABNORMAL) CBC auto differential (01/20/2025 3:07 PM CDT) WBC 9.0 3.5 - 10.5 K/uL 01/20/2025 3:24 PM CDT [facility] RBC 3.79(L) 4.30 - 5.70 M/uL 01/20/2025 3:24 PM CDT [facility] Hemoglobin 12.2(L) 13.5 - 17.5 g/dL 01/20/2025 3:24 PM T [facility] Hematocrit 35.5(L) 38.0 - 50.0 % 01/20/2025 3:24 PM T [facility] Platelets 220 150 - 450 K/uL 01/20/2025 3:24 PM T [facility] MCV 93.7 81.2 - 95.1 fL 01/20/2025 3:24 PM T [facility] MCH 32.2(H) 26.0 - 32.0 pg 01/20/2025 3:24 PM T [facility] MCHC 34.4 32.0 - 36.0 g/dL 01/20/2025 3:24 PM CDT [facility] RDW 13.3 11.8 - 15.6 % 01/20/2025 3:24 PM T [facility] NRBC %, Automated 0 % 01/20/2025 3:24 PM T [facility] NRBC Absolute, Autmated 0.00 K/uL 01/20/2025 3:24 PM T [facility] Comment: 0-4 Days: 0.01 -0.02 >=5 Days: 0.00 Neutrophils 65.1 % 01/20/2025 3:24 PM T [facility] Absolute Neutrophils 5.9 1.7 - 7.0 K/uL 01/20/2025 3:24 PM T [facility] Lymphocytes % 20.3 % 01/20/2025 3:24 PM T [facility] Absolute Lymphocytes 1.8 0.9 - 2.9 K/uL 01/20/2025 3:24 PM T [facility] Monocytes % 10.3 % 01/20/2025 3:24 PM T [facility] Monocytes Absolute 0.9 0.3 - 0.9 K/uL 01/20/2025 3:24 PM T [facility] Eosinophils 3.2 % 01/20/2025 3:24 PM [facility] Absolute Eosinophils 0.3 0.1 - 0.5 K/uL 01/20/2025 3:24 PM [facility] Basophils 0.7 % 01/20/2025 3:24 PM [facility] Absolute Basophils 0.1 0.0 - 0.1 K/uL 01/20/2025 3:24 PM [facility] Immature Leukocytes 0.4 % 01/20/2025 3:24 PM [facility] Immature Leukocytes Absolute 0.04 0.00 - 0.04 K/uL 01/20/2025 3:24 PM T [facility] Blood (Blood, Venous) 01/20/2025 3:07 PM CDT 01/20/2025 3:18 PM CDT us Blanca Arrington PA-C LAB BLOOD ORDERABLES Final Res ult [facility] [address] [place] [address] * (ABNORMAL) Magnesium (01/20/2025 3:07 PM CDT) Magnesium 2.5(H) 1.6 - 2.3 mg/dL 01/20/2025 3:33 PM T [facility] Blood (Blood, Venous) 01/20/2025 3:07 PM CDT 01/20/2025 3:18 PM CDT Blanca WALKER-Denice LAB BLOOD ORDERABLES Final Res ult Performing Organization Address [facility]/ZIP Co de Phone Number [facility] [address] [place] [address] * CK (01/20/2025 3:07 PM CDT) Total CK 84 43 - 310 U/L 01/20/2025 4:50 PM CDT [facility] 01/20/2025 3:07 PM CDT 01/20/2025 3:18 PM CDT Blanca WALKER-C LAB BLOOD ORDERABLES Final Res ult Performing Organization Address [facility] de Phone Number [facility] [address] [place] [address] * (ABNORMAL) Comprehensive metabolic panel (01/20/2025 3:07 PM CDT) Total Protein 7.4 6.3 - 8.2 g/dL 01/20/2025 3:33 PM T [facility] Albumin, Serum 4.4 3.5 - 5.0 g/dL 01/20/2025 3:33 PM T [facility] Total Bilirubin <0.7 0.1 - 1.0 mg/dL 01/20/2025 3:33 PM T [facility] AST 49(H) 8 - 48 U/L 01/20/2025 3:33 PM T [facility] Alkaline Phosphatase 62 38 - 128 U/L 01/20/2025 3:33 PM T [facility] ALT (SGPT) 115(H) 0 - 49 U/L 01/20/2025 3:33 PM T [facility] Sodium 143 135 - 145 mEq/L 01/20/2025 3:33 PM T [facility] Potassium 3.7 3.5 - 5.1 mEq/L 01/20/2025 3:33 PM T [facility] Chloride 111(H) 98 - 107 mEq/L 01/20/2025 3:33 PM T [facility] CO2 16(L) 22 - 31 mmol/L 01/20/2025 3:33 PM T [facility] BUN 60(H) 5 - 25 mg/dL 01/20/2025 3:33 PM T [facility] Creatinine 3.02(H) 0.60 - 1.40 mg/dL 01/20/2025 3:33 PM T [facility] Glucose 111(H) 70 - 100 mg/dL 01/20/2025 3:33 PM T [facility] Calcium, Total,S 9.6 8.4 - 10.2 mg/dL 01/20/2025 3:33 PM [facility] Anion Gap 16(H) 4 - 13 01/20/2025 3:33 PM [facility] Comment: The anion gap is calculated with the following formula: AGAP = Na ? (Cl + CO2). Fasting? Unknown 01/20/2025 3:18 PM [facility] Blood (Blood, Venous) 01/20/2025 3:07 PM CDT 01/20/2025 3:18 PM CDT us Blanca Arrington PA-C LAB BLOOD ORDERABLES Final Res ult [facility] [address] [place] [address] * (ABNORMAL) Microalbumin/Creatinine Ratio (01/20/2025 2:42 PM CDT) Microalbumin, U 100.8(H) 0.0 - 16.6 mg/L 01/20/2025 5:14 PM T [facility] Creatinine, Urine 52 mg/dL 01/20/2025 5:10 PM T [facility] Comment: No established reference range. Microalb/Creat Ratio 194(H) 0 - 16 mg/g 01/20/2025 5:14 PM CDT [facility] 01/20/2025 2:42 PM CDT 01/20/2025 2:52 PM CDT Blanca Arrington PA-C LAB URINE ORDERABLES Final Res ult Performing Organization Address [facility] de Phone Number [facility] [address] [place] [phone] * (ABNORMAL) Urine total protein/creatinine ratio, random (01/20/2025 2:42 PM CDT) Protein, Urine, Total Random 121(H) 0 - 13 mg/dL 01/20/2025 5:43 PM CDT [facility] Creatinine, Urine 51 mg/dL 01/20/2025 5:43 PM CDT [facility] Comment: No established reference range. Prot/Creat, Ur 2.37(H) 0.00 - 0.20 mg/mg 01/20/2025 5:43 PM CDT [facility] 01/20/2025 2:42 PM CDT 01/20/2025 4:51 PM CDT Blanca Arrington PA-C LAB URINE ORDERABLES Final Res ult Performing Organization Address [facility] de Phone Number [facility] [address] [place] [address] * (ABNORMAL) Basic metabolic panel (01/20/2025 8:58 AM CDT) Only the most recent of2 resultswithin the time period is included. Sodium 139 135 - 145 mmol/L 01/20/2025 9:48 AM CDT [facility] [place] Potassium 4.4 3.5 - 5.1 mmol/L 01/20/2025 9:48 AM CDT [facility] [place] Chloride 110(H) 98 - 107 mmol/L 01/20/2025 9:48 AM CDT [facility] [place] CO2 19(L) 22 - 31 mmol/L 01/20/2025 9:48 AM CDT [facility] Creatinine 6.3(HH) 0.6 - 1.4 mg/dL 01/20/2025 9:48 AM CDT [facility] BUN 60(H) 5 - 25 mg/dL 01/20/2025 9:48 AM CDT [facility] Glucose 143(H) 70 - 100 mg/dL 01/20/2025 9:48 AM CDT [facility] Calcium, Total,S 10.4(H) 8.4 - 10.2 mg/dL 01/20/2025 9:48 AM CDT [facility] Anion Gap 10 4 - 13 01/20/2025 9:48 AM CDT [facility] Comment: The anion gap is calculated with the following formula: AGAP = Na ? (Cl + CO2). Fasting? Yes 01/20/2025 8:58 AM CDT [facility] Blood (Blood, Venous) 01/20/2025 8:58 AM CDT 01/20/2025 8:58 AM CDT us Arabella Alamo APRN LAB BLOOD ORDERABLES F inal Result [facility] [address] [place] [address] * (ABNORMAL) Hemoglobin A1c (01/08/2025 8:39 AM CDT) Hemoglobin A1C 6.6(H) 4.0 - 5.6 % A1C 01/08/2025 1:01 PM CDT [facility] Comment: Reference Range 4.0-5.6% is [...] ORDERABLES F inal Result Performing Organization Address City/[facility]/ZIP Co de Phone Number [facility] [address] [place] [address] * (ABNORMAL) Lipid panel (01/08/2025 8:39 AM CDT) Cholesterol 84 0 - 199 mg/dL 01/08/2025 1:08 PM T [facility] Comment: Recommended by National Cholesterol Education Program (ATP III) -------- Cholesterol Ranges -------- <200 Desirable 200-239 Borderline high >=240 High Triglycerides 198(H) 0 - 149 mg/dL 01/08/2025 1:08 PM T [facility] Comment: -------- TRIG Ranges -------- <150 Normal 150-199 Borderline high 200-499 High >=500 Very high HDL 25(L) 40 - 250 mg/dL 01/08/2025 1:08 PM T [facility] Comment: -------- HDL Ranges -------- <40 Low 40-59 Normal >=60 Optimal LDL Calculated 19 0 - 99 mg/dL 01/08/2025 1:08 PM T [facility] Comment: -------- LDL Ranges -------- <100 Optimal 100-129 Near optimal/above optimal 130-159 Borderline high 160-189 High >=190 Very high Fasting? Yes 01/08/2025 8:40 AM T [facility] Blood (Blood, Venous) 01/08/2025 8:39 AM CDT 01/08/2025 12:35 PM CDT Arabella Alamo APRN LAB BLOOD ORDERABLES F inal Result Performing Organization Address City/[facility]/ZIP Co de Phone Number [facility] [address] [place] [address] from Last 3 Months Insurance MEDICARE [employer] [place] [employer] Advance Directives For more information, please contact: [phone] Documents on File Type Date Recorded Patient Senior Sales Assistant Expl anation Advance Directive 05/26/2019 11:02 AM Adva nce Directive Advance Directives and Living Will 05/26/2019 11:02 AM * Full Code (Latest Code Status on File) Date Activated Date Inactivated Comments 06/11/2020 10:19 AM 06/11/2020 12:51 PM Care Teams Housing Grant Analyst Relationship Specialty Start Date End Date Arabella Alamo APRN [address] [place] [id number] PCP - General Family Medicine 09/07/23
--- OUTSIDE RECORDS SUMMARY | 2025-02-18 00:25 | XMS_ITS | Encounter Summary ---
Author Organization [facility] er Address [address] [place] [address] Care Team Providers Care Fruit Pitter Name Role Phone Arabella Alamo APRN Primary Care Provider Reason for Visit * Reason Onset Date Comments Metformin questions 01/28/2025 Encounter Details Date Type Department Care Team (Late st Contact Info) Description 01/28/2025 Telephone [facility] [address] [place] [address] Shin Kong MD [address] [place] [address] Metformin questions Social History Tobacco Use Types Packs/Day Years [...] from your doctor or pharmacy? Never 09/02/2024 [facility] Utilities Answer Date Recorded In the [...] How often do you attend chur or mu-ism services? More than 4 times per year 09/02/2024 Do you belong to any clubs o r organizations such as yarsani groups, unions, fraternal or athletic groups, or [...] Date Recorded PHQ-9 Total Score 1 09/02/2024 [facility] of Occupat ional Health - Occupational Stress [...] place to sleep or slept in a intermediate (including now)? No 10/19/2023 Housing Stability Vital Sign Answer Valentino e Recorded In the last 12 months, was t here a time when you were not able to pay the mortgage or rent on time? No 09/02/2024 Number of Times Moved in the Last Year Not on fi le 09/02/2024 At any time in the past 12 m [facility], were you homeless or living in a intermediate (including now)? 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 Patient verbalized understanding. * Telephone Encounter - Kelsy Barraza - 01/28/2025 11:33 AM CDT Pt was instructed to stop taking his metformin yesterday. Pt would like a return call as he has questions regarding stopping it completely or tapering off. Thank you! documented in this encounter Plan of Treatment Upcoming Encounters Date Type Department Care Team (Late st Contact Info) Description 02/24/2025 8:30 AM CDT Appointment [facility] Ultrasound [address] [place] [address] 02/24/2025 11:30 AM CDT Office Visit [facility] [address] [place] [address] Shin Kong MD [address] [facility] [place] [phone] documented as of this encounter Visit Diagnoses Not on filedocumented in this encounter Care Teams Fruit Pitter Relationship Specialty Start Date End Date Arabella Alamo APRN [address] [place] [address] PCP - General Family Medicine 09/07/23 documented as of this encounter
--- OUTSIDE RECORDS SUMMARY | 2025-02-18 00:25 | XMS_ITS | Encounter Summary ---
Author Organization [facility] er Address [address] [place] [address] Care Team Providers Care Hypnotherapist Name Role Phone Arabella Alamo APRN Primary Care Provider Reason for Visit * Reason Comments Med Refill Encounter Details Date Type Department Care Team (Late st Contact Info) Description 07/26/2024 Refill [place] [address] [place] [address] Arabella Alamo RAILROAD WHEELS AND AXLE INSPECTOR [address] [place] [address] [id number] Leg pain, bilateral Social History Tobacco Use Types Packs/Day Years Used Date Smoking Tobacco: Every Day Cigarettes 1 64 Smokeless Tobacco: Never Alcohol Use Standard Drinks/Week Comments Yes 0 (1 standard drink = 0.6 oz pur e alcohol) B1300 Health Literacy Answer Date Recor ded How often do you need to hav e someone help you when you read instructions, pamphlets, or other written material from your doctor or pharmacy? Sometimes 06/10/2024 [facility] Utilities Answer Date Recorded In the past 12 months has e [employer], gas, oil, or water [employer] threatened to shut off services in your home? No 06/10/2024 Humiliation, Afraid, Rape, and Kick questionnair e Answer Date Recorded Within the last year, have y ou been afraid of your partner or ex-partner? No 05/09/2024 Within the last year, have y ou been humiliated or emotionally abused in other ways by your partner or ex-partner? No Within the last year, have y ou been kicked, hit, slapped, or otherwise physically hurt by your partner or ex-partner? No 05/09/2024 Within the last year, have y ou been raped or forced to have any kind of sexual activity by your partner or ex-partner? No 05/09/2024 Social Connection and Isolat ion Panel [NHANES] Answer Date Recorded In a typical week, how many times do you talk on the phone with family, friends, or neighbors? More than three times a week 06/10/2024 How often do you get togethe r with friends or relatives? Twice a week 06/10/2024 How often do you attend chur or catholic services? More than 4 times per year 06/10/2024 Do you belong to any clubs o r organizations such as congregation groups, unions, fraternal or athletic groups, or school groups? Yes 06/10/2024 How often do you attend meet ings of the clubs or organizations you belong to? Never 06/10/2024 Are you , , di vorced, , never , or living with a partner? 06/10/2024 AUDIT-C Answer Date Recorded Q1: How often do you have a drink containing alc ohol? 2-3 times a week 06/10/2024 Q2: How many drinks containi ng alcohol do you have on a typical day when you are drinking? 1 or 2 06/10/2024 Q3: How often do you have si x or more drinks on one occasion? Never 06/10/2024 Overall Financial Resource Strain (CARDIA) Answe r Date Recorded How hard is it for you to pa y for the very basics like food, housing, medical care, and heating? Not hard at all 06/10/2024 PHQ-2 Answer Date Recorded PHQ-9 Total Score 3 06/10/2024 [facility] of Occupat ional Health - Occupational Stress Questionnaire Answer Date Recorded Do you feel stress - tense, restless, nervous, or anxious, or unable to sleep at night because your mind is troubled all the time - these days? Only a little 06/10/2024 Exercise Vital Sign Answer Date Recorde d On average, how many days pe r week do you engage in moderate to strenuous exercise (like a brisk walk)? 3 days 06/10/2024 On average, how many minutes do you engage in exercise at this level? 20 min 06/10/2024 Hunger Vital Sign Answer Date Recorded Within [...] medical appointments or from getting medications? No 05/21 In the past 12 months, has l ack of transportation kept you from meetings, work, or from getting things needed for daily living? No 06/10/2024 Housing Stability Vital Sign Answer Valentino e [...] place to sleep or slept in a group home (including now)? No 10/19/2023 Housing Stability Vital Sign Answer Valentino e Recorded In the last 12 months, was t here a time when you were not able to pay the mortgage or rent on time? No 06/10/2024 Number of Times Moved in the Last Year Not on fi le 06/10/2024 At any time in the past 12 m [facility], were you homeless or living in a group home (including now)? No 06/10/2024 Interpersonal Safety Questionnaire Answer Date Recorded How often does anyone, phuc echevarria family and friends, physically hurt you? Never 05/09/2024 How often does anyone, phuc echevarria family and friends, insult or talk down to you? Never 05/09/2024 How often does anyone, phuc echevarria family and friends, threaten you with harm? Never 05/09/2024 How often does anyone, inclu ding family and friends, threaten you with harm? Never 05/09/2024 Education Answer Date Recorded What is the highest level of school you have completed or the highest degree you have received? 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 BITIONS CURATOR * Telephone Encounter - Arabella Alamo APRN - 07/29/2024 10:27 AM EXHIBITIONS CURATOR Could we please have him give us a call as soon as he picks the Dulox[facility] up from [facility]. If I put in another order for it to go to [facility], it will delete the 30 days supply I sent to [facility]. BITIONS CURATOR * Telephone Encounter - Nieves Dillon RN - 07/29/2024 8:58 AM CST Patient was also asking for a jail Rx of the Cymbalta to [facility] pharmacy. The one to [facility] was just the bridge script. BITIONS CURATOR * Telephone Encounter - Arabella Alamo APRN - 07/29/2024 8:55 AM EXHIBITIONS CURATOR Already responded to BITIONS CURATOR * Telephone Encounter - Arabella Alamo APRN - 07/29/2024 8:55 AM EXHIBITIONS CURATOR 30 day supple sent to [facility] BITIONS CURATOR * Telephone Encounter - Nieves Dillon RN - 07/28/2024 3:26 PM CST ----- Message from Azul sent at 07/28/2024 3:22 PM EXHIBITIONS CURATOR ----- Pt calling back inquiring about status of Cymbalta bridge script as he is currently out. Informed, from when spoke w/him earlier in the day, that a message was forwarded to Arabella, who is back in the office on Sunday07.29.24, for her to sign off on. Script usually gets sent to [facility] but has not received and wants bridge script to go to [facility] Wanting to make sure that one can go to [facility] and that [employer] script has been sent to them as well. Advise. BITIONS CURATOR * Telephone Encounter - Nieves Dillon RN - 07/28/2024 11:55 AM CST Please see medication refill request. BITIONS CURATOR * Telephone Encounter - Azul Salinas - 07/28/2024 11:45 AM CST Scheduled appt w/Arabella 08.05.24. Inquiring about bridge script for Cymbalta as completely out to [facility] (usually goes to [facility] mail order). BITIONS CURATOR * Telephone Encounter - Courtney Corado LPN - 07/28/2024 10:10 AM CST Patient is due for follow up appointment. PSR: Please contact patient to assist with scheduling. Return in about 4 weeks (around 08/06/2024) for Recheck: blood pressure. Arabella Plaza Patient all out of med, needs two scripts: one to local for 15# then [facility] mail order for his jail fill , takes at [facility]. Last visit in provider department:07/09/24 Last visit requested medication was discussed:05/09/24 Last Rx: DULoxetine (Cymbalta) [address] capsule 30# Rf 1 05/09/24 Requested Prescriptions Pending Prescriptions Disp Refills DULoxetine (CYMBALTA) [address] capsule [Pharmacy Med Name: DULoxetine HCl Oral Capsule Delayed Release Particles 30 MG] 60 capsule 5 Sig: TAKE 1 CAPSULE AT BEDTIME (DO NOT CRUSH OR CHEW) Most Recent 07/30/22 - 07/28/24 PHQ-9 Total Score 3 06/10/24 13:41 WAQAS-7 Total Score 1 06/10/24 13:43 Labs: Component Latest Ref Rng 05/14/2024 WBC 3.5 - 10.5 K/uL 9.2 RBC 4.30 - 5.70 M/uL 4.32 Hemoglobin 13.5 - 17.5 g/dL 13.6 Hematocrit 38.0 - 50.0 % 40.8 Platelets 150 - 450 K/uL 201 MCV 81.2 - 95.1 fL 94.4 MCH 26.0 - 32.0 pg 31.5 MCHC 32.0 - 36.0 g/dL 33.3 RDW 11.8 - 15.6 % 13.3 Lymphocytes % % 22.0 Mid-size Cells % 10.8 Granulocytes/Neutrophils % 67.2 Lymphocytes Absolute 0.9 - 2.9 K/uL 2.0 MIDS Absolute 0.4 - 1.5 K/uL 1.0 Granulocytes/Neutrophils Absolute 1.7 - 7.0 K/uL 6.2 Sodium 135 - 145 mmol/L 145 Potassium 3.5 - 5.1 mmol/L 4.5 Chloride 98 - 107 mmol/L 105 CO2 22 - 31 mmol/L 29 Creatinine 0.6 - 1.4 mg/dL 1.4 BUN 5 - 25 mg/dL 36 (H) Glucose 70 - 100 mg/dL 166 (H) Calcium, Total,S 8.4 - 10.2 mg/dL 9.9 Anion Gap 4 - 13 11 Fasting? Yes Ferritin 18 - 464 ng/mL 52 Vitamin B-12 239 - 931 pg/mL 286 Vitamin D, Total ng/mL 28.0 ! Hemoglobin A1C 4.0 - 5.6 % A1C 6.8 (H) Estimated Glomerular Filtration Rate (eGFR) 51 ! Legend: (H) High ! Abnormal Vitals: BP Readings from Last 2 Encounters: 07/09/24 (!) 160/78 06/10/24 (!) 160/74 Last Controlled Substance Agreement (CSA): Last Random Urine Drug Screen (RUDS): BITIONS CURATOR documented in this encounter Plan of Treatment Upcoming Encounters Date Type Department Care Team (Late st Contact Info) Description 02/24/2025 8:30 AM CDT Appointment [facility] Ultrasound [address] [place] [address] 02/24/2025 11:30 AM CDT Office Visit [facility] [address] [place] [address] Shin Kong MD 210 [place] [phone] documented as of this encounter Visit Diagnoses Diagnosis Leg pain, bilateral Pain in soft tissues of limb documented in this encounter Care Teams Hypnotherapist Relationship Specialty Start Date End Date Arabella Alamo APRN [address] [place] [address] PCP - General Family Medicine 09/07/23 documented as of this encounter
--- OUTSIDE RECORDS SUMMARY | 2025-02-18 00:25 | XMS_ITS | Encounter Summary ---
Author Organization [facility] Address [address] [place] [address] Care Team Providers Care Certified Maintenance Welder Name Role Phone Arabella Alamo APRN Primary Care Provider Encounter Details Date Type Department Care Team (Latest Contact Info) Description 01/20/2025 Travel Social History Tobacco Use Types Packs/Day Years [...] from your doctor or pharmacy? Never 09/02/2024 [facility] Utilities Answer Date Recorded In the past 12 months has [facility] [employer], gas, oil, or water [email or web address] threatened to shut off services in your [...] How often do you attend chur or rastafarian services? 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 Not on file Not on file documented as of this encounter Plan of Treatment Upcoming Encounters Date Type Department Care Team (Late st Contact Info) Description 02/24/2025 8:30 AM CDT Appointment [facility] Ultrasound [address] [place] [address] 02/24/2025 11:30 AM CDT Office Visit [facility] [address] [place] [address] Shin Kong MD [address] [place] [phone] documented as of this encounter Visit Diagnoses Not on filedocumented in this encounter Care Teams Certified Maintenance Welder Relationship Specialty Start Date End Date Arabella Alamo APRN [address] [place] [address] PCP - General Family Medicine 09/07/23 documented as of this encounter
--- OUTSIDE RECORDS SUMMARY | 2025-02-18 00:26 | XMS_ITS | Encounter Summary ---
Author Organization [facility] er Address [address] [place] [address] Care Team Providers Care Egg Caser Name Role Phone Arabella Alamo APRN Primary Care Provider Encounter Details Date Type Department Care Team (Late st Contact Info) Description 01/08/2025 Results Follow-Up [place] [address] [place] [address] Arabella Alamo GEAR GENERATOR SET UP OPERATOR [address] [place], [place] [address] Social History Tobacco Use Types Packs/Day Years [...] from your doctor or pharmacy? Never 09/02/2024 [facility] Utilities Answer Date Recorded In the past [...] week 09/02/2024 How often do you attend [facility] or taoism services? More than 4 times per year [...] Date Recorded PHQ-9 Total Score 1 09/02/2024 [facility] of Occupat ional Health - Occupational Stress [...] place to sleep or slept in a usp (including now)? No 10/19/2023 Housing Stability Vital Sign Answer Valentino e Recorded In the last 12 months, was t here a time when you were not able to pay the mortgage or rent on time? No 09/02/2024 Number of Times Moved in the Last Year Not on fi le 09/02/2024 At any time in the past [address] [facility], were you homeless or living in a usp (including now)? No 09/02/2024 Interpersonal Safety Questionnaire Answer Date Recorded How often does anyone, phuc echevarria family and friends, physically hurt you? Never 09/02/2024 How often does anyone, phuc echevarria family and friends, insult or talk down to you? Never 09/02/2024 How often does anyone, phuc echevarria family and friends, threaten you with harm? Never 09/02/2024 How often does anyone, inclu wale family and friends, threaten you with harm? 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 * Result Encounter Note - Arabella Alamo APRN - 01/08/2025 1:21 PM CDT Thought I should pass this along. Looks like you saw him last. Or I can call him to let him know togo to the ER. documented in this encounter Plan of Treatment Upcoming Encounters Date Type Department Care Team (Late st Contact Info) Description 02/24/2025 8:30 AM CDT Appointment [facility] Ultrasound [address] [place] [address] 02/24/2025 11:30 AM CDT Office Visit [facility] [address] [place] [address] Shin Kong MD [address] [place] [phone] documented as of this encounter Visit Diagnoses Not on filedocumented in this encounter Care Teams Egg Caser Relationship Specialty Start Date End Date Arabella Alamo APRN [address] [place] [address] PCP - General Family Medicine 09/07/23 documented as of this encounter
--- OUTSIDE RECORDS SUMMARY | 2025-02-18 00:26 | XMS_ITS | Encounter Summary ---
Author Organization [facility] er Address [address] [place] [address] Care Team Providers Care Show Horse Driver Name Role Phone Arabella Alamo APRN Primary Care Provider Reason for Referral * Consultation (Urgent) - Authorized Specialty Diagnoses / Procedures Referred By Martine calvert Referred To Contact Nephrology Diagnoses Acute renal failure, unspecified acute renal failure type Arabella Alamo APRN [address] [place] [address] Phone: tel: fax: Referral ID Status Reason Start Date Expiration Date Visits Requested Visits Authorized [id number] Authorized Specialty Services Required 01/20/2025 01/20/2026 1 1 Encounter Details Date Type Department Care Team (Late st Contact Info) Description 01/20/2025 Orders Only [place] [address] [place] [address] Arabella Alamo CHAIRMAN & CEO [address] [place] [address] Acute renal failure, unspecified acute renal failure type (Primary Dx) Social History Tobacco Use Types Packs/Day Years [...] from your doctor or pharmacy? Never 09/02/2024 [facility] Utilities Answer Date Recorded In the past 12 months has th e [employer], gas, oil, or water company threatened to [...] week 09/02/2024 How often do you attend [facility] or latter day services? More than 4 times per year 09/02/2024 Do you belong to any clubs o r organizations such as mormonism groups, unions, fraternal or athletic groups, or [...] Date Recorded PHQ-9 Total Score 1 09/02/2024 [facility] of Occupat ional Health - [...] place to sleep or slept in a correction (including now)? No 10/19/2023 Housing Stability Vital Sign Answer Valentino e Recorded In the last 12 months, was t here a time when you were not able to pay the mortgage or rent on time? No 09/02/2024 Number of Times Moved in the Last Year Not on fi le 09/02/2024 At any time in the past 12 m [facility], were you homeless or living in a correction (including now)? 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 Not on file documented as of this encounter Plan of Treatment Upcoming Encounters Date Type Department Care Team (Late st Contact Info) Description 02/24/2025 8:30 AM CDT Appointment [facility] Ultrasound [address] [place] [address] 02/24/2025 11:30 AM CDT Office Visit [facility] [address] [place] [address] Shin Kong MD [address] [place] [phone] Scheduled Referrals Name Type Priority Associated Diagnoses Orde r Schedule Ambulatory referral to Nephrology Outpatient Referral Routine Acute renal failure, unspecified acute renal failure type Ordered: 01/20/2025 documented as of this encounter Visit Diagnoses Diagnosis Acute renal failure, unspecified acute renal failure type- Primary documented in this encounter Care Teams Show Horse Driver Relationship Specialty Start Date End Date Arabella Alamo APRN [address] [place] [address] PCP - General Family Medicine 09/07/23 documented as of this encounter
--- OUTSIDE RECORDS SUMMARY | 2025-02-18 00:26 | XMS_ITS | Encounter Summary ---
Author Organization [facility] er Address [address] [place] [address] Care Team Providers Care Technical Support Internship Name Role Phone Arabella Alamo APRN Primary Care Provider Encounter Details Date Type Department Care Team (Late st Contact Info) Description 01/20/2025 Results Follow-Up [place] [address] [facility] [address] [place] [address] Arabella Alamo DELI BAKERY CLERK [address] [place], [place] [address] Social History Tobacco Use Types Packs/Day Years [...] from your doctor or pharmacy? Never 09/02/2024 [facility] Utilities Answer Date Recorded In the past [...] week 09/02/2024 How often do you attend [facility] or scientology services? More than 4 times per year 09/02/2024 Do you belong to any clubs o r organizations such as spiritism groups, unions, fraternal or athletic groups, or [...] Date Recorded PHQ-9 Total Score 1 09/02/2024 [facility] of Occupat ional Health - Occupational Stress [...] place to sleep or slept in a chcf (including now)? No 10/19/2023 Housing Stability Vital Sign Answer Valentino e Recorded In the last 12 months, was t here a time when you were not able to pay the mortgage or rent on time? No 09/02/2024 Number of Times Moved in the Last Year Not on fi le 09/02/2024 At any time in the past 12 m [facility], were you homeless or living in a chcf (including now)? 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 * Result Encounter Note - Arabella Alamo APRN - 01/20/2025 12:43 PM CDT Spoke with Дмитрий and he is going into [facility] documented in this encounter Plan of Treatment Upcoming Encounters Date Type Department Care Team (Late st Contact Info) Description 02/24/2025 8:30 AM CDT Appointment [facility] Ultrasound [address] [place] [address] 02/24/2025 11:30 AM CDT Office Visit [facility] [address] [place] [address] Shin Kong MD [address] [facility] [place] [phone] documented as of this encounter Visit Diagnoses Not on filedocumented in this encounter Care Teams Technical Support Internship Relationship Specialty Start Date End Date Arabella Alamo APRN [address] [place] [address] PCP - General Family Medicine 09/07/23 documented as of this encounter
--- OUTSIDE RECORDS SUMMARY | 2025-02-18 00:26 | XMS_ITS | Encounter Summary ---
Author Organization [facility] er Address [address] [place] [address] Care Team Providers Care Crepe Maker Name Role Phone Arabella Alamo APRN Primary Care Provider Encounter Details Date Type Department Care Team (Late st Contact Info) Description 01/08/2025 Telephone [place] [address] [place] [phone] Duy Schultz MD [address] [facility] [address] [place] [address] Social History Tobacco Use Types Packs/Day Years [...] from your doctor or pharmacy? Never 09/02/2024 [facility] Utilities Answer Date Recorded In [...] often do you attend [facility] or jehovah's witness services? More than 4 times per year [...] Date Recorded PHQ-9 Total Score 1 09/02/2024 [facility] [place] [facility] - Occupational Stress [...] place to sleep or slept in a penitentiary (including now)? No 10/19/2023 Housing Stability Vital Sign Answer Valentino e Recorded In the last 12 months, was t here a time when you were not able to pay the mortgage or rent on time? No 09/02/2024 Number of Times Moved in the Last Year Not on fi le 09/02/2024 At any time in the past 12 m [facility], were you homeless or living in a penitentiary (including now)? 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 Not on file Not on file documented as of this encounter Miscellaneous Notes * Telephone Encounter - Duy Schultz MD - 01/08/2025 1:25 PM CDT I called Дмитрий and informed him of his profound drop in kidney function I do like him to go to the emergency room today for an evaluation documented in this encounter Plan of Treatment Upcoming Encounters Date Type Department Care Team (Late st Contact Info) Description 02/24/2025 8:30 AM CDT Appointment [facility] Ultrasound [address] [place] [id number] 02/24/2025 11:30 AM CDT Office Visit [facility] [address] [place] [id number] Shin Kong MD [address] [place] [id number] documented as of this encounter Visit Diagnoses Not on filedocumented in this encounter Care Teams Crepe Maker Relationship Specialty Start Date End Date Arabella Alamo APRN [address] [place] [address] PCP - General Family Medicine 09/07/23 documented as of this encounter
== END 2025-02-17 10:35 | disposition home or self-care (01) ==
PROVIDERS: Visit Provider Nurse Practitioner Family
DX: R00.1 Bradycardia, unspecified (principal); R60.0 Localized edema; I10 Essential (primary) hypertension; R06.02 Shortness of breath
CPT/HCPCS: 80053; 83880